=== PATIENT | female | born 1970 | race Two or more races ===

== ENCOUNTER → 2020-07-07 10:58 | Outpatient (BNVA) | payer OTHER, SELFPAY | PROVIDERS: PCP Physician Assistant; Referring Provider Physician Assistant; Visit Provider Dietitian, Registered | DX: Z76.89 Persons encountering health services in other specified circumstances (principal) ==

== ENCOUNTER → 2020-07-11 08:55 | Outpatient (BNVA) | payer OTHER, SELFPAY | PROVIDERS: PCP Physician Assistant; Visit Provider Internal Medicine Endocrinology, Diabetes & Metabolism | DX: Z76.89 Persons encountering health services in other specified circumstances (principal) ==

== ENCOUNTER → 2020-07-12 08:54 | Outpatient (BNVA) | payer OTHER, SELFPAY | PROVIDERS: PCP Physician Assistant; Visit Provider Internal Medicine Endocrinology, Diabetes & Metabolism | DX: Z76.89 Persons encountering health services in other specified circumstances (principal) ==

== ENCOUNTER 2020-07-13 07:10 | Outpatient (REF) | payer OTHER, SELFPAY ==
[2020-07-13 13:17] LABS: Thyroid Stimulating Hormone 98.18 uIU/mL (0.32-4.0)
[2020-07-19 06:12] LABS: Thyroglobulin Antibody <1 IU/mL (<=1); Thyroglobulin Level 1.6 ng/mL
== END 2020-07-13 07:11 | disposition home or self-care (01) ==
LOC: HO.LAB 07:10
PROVIDERS: PCP Physician Assistant; Visit Provider Internal Medicine Endocrinology, Diabetes & Metabolism
DX: C73 Malignant neoplasm of thyroid gland (principal)
CPT/HCPCS: 36415; 84432; 84443; 86800

== ENCOUNTER 2020-07-22 07:36 | Outpatient (REF) | payer OTHER, SELFPAY ==
[2020-07-22 09:23] LABS: Thyroid Stimulating Hormone 8.24 uIU/mL (0.32-4.0)
[2020-07-26 08:52] LABS: Thyroglobulin Antibody <1 IU/mL (<=1); Thyroglobulin Level 0.5 ng/mL
== END 2020-07-22 07:37 | disposition home or self-care (01) ==
LOC: HO.LAB 07:36
PROVIDERS: PCP Physician Assistant; Visit Provider Internal Medicine Endocrinology, Diabetes & Metabolism
DX: C73 Malignant neoplasm of thyroid gland (principal)
CPT/HCPCS: 36415; 84432; 84443; 86800

== ENCOUNTER → 2020-07-25 13:24 | Outpatient (BNVA) | payer OTHER, SELFPAY | PROVIDERS: PCP Physician Assistant; Visit Provider Internal Medicine Endocrinology, Diabetes & Metabolism | DX: C73 Malignant neoplasm of thyroid gland (principal); E89.0 Postprocedural hypothyroidism; E11.21 Type 2 diabetes mellitus with diabetic nephropathy; Z79.84 Long term (current) use of oral hypoglycemic drugs; E66.01 Morbid (severe) obesity due to excess calories; Z68.42 Body mass index [BMI] 45.0-49.9, adult; Z79.899 Other long term (current) drug therapy | CPT/HCPCS: 82947; 99212 ==

== ENCOUNTER → 2020-09-15 11:33 | Outpatient (BNVA) | payer OTHER, SELFPAY | PROVIDERS: PCP Physician Assistant; Referring Provider Physician Assistant; Visit Provider Dietitian, Registered | DX: Z76.89 Persons encountering health services in other specified circumstances (principal) ==

== ENCOUNTER 2020-10-24 10:22 | Outpatient (REF) | payer OTHER, SELFPAY ==
[2020-10-24 14:37] LABS: Microalbum/Creatinine Ratio Ur 4.9 ug/mg cr
[2020-10-24 15:03] LABS: Alanine Aminotransferase 33 U/L (0-31); Albumin Level 3.9 g/dL (3.5-5.0); Alkaline Phosphatase 85 U/L (39-117); Anion Gap 12 (12-20); Aspartate Amino Transferase 20 U/L (5-31); Bilirubin Total 0.4 mg/dL (0.0-1.0); Blood Urea Nitrogen 18 mg/dL (9-16); Calcium 9.2 mg/dL (8.4-10.2); Carbon Dioxide 28 mmol/L (22-29); Chloride 107 mmol/L (96-108); Cholesterol 163 mg/dL; Estimated Glomerular Filt Rate > 60; Glucose Fasting 126 mg/dL (60-99); HDL Cholesterol 59 mg/dL; LDL Cholesterol Calculated 84 mg/dl; Potassium 4.1 mmol/L (3.3-5.1); Sodium 143 mmol/L (135-145); Total Protein 7.5 g/dL (6.5-8.0); Triglycerides 103 mg/dL
[2020-10-24 15:09] LABS: Free T4 (Free Thyroxine) 1.36 ng/dL (0.71-1.85); Thyroid Stimulating Hormone 0.21 uIU/mL (0.32-4.0)
[2020-10-25 07:32] LABS: LDL Cholesterol Direct 84 mg/dL (<100)
[2020-10-27 05:52] LABS: Thyroglobulin Antibody <1 IU/mL (<=1); Thyroglobulin Level 0.2 ng/mL
[2020-10-27 15:59] LABS: Vitamin B12 325 pg/mL (200-900)
== END 2020-10-24 10:23 | disposition home or self-care (01) ==
LOC: HO.10HDL 10:22
PROVIDERS: Visit Provider Internal Medicine Endocrinology, Diabetes & Metabolism
DX: E11.9 Type 2 diabetes mellitus without complications (principal); C73 Malignant neoplasm of thyroid gland
CPT/HCPCS: 36415; 80053; 80061; 82043; 82607; 83721; 84432; 84439; 84443; 86800

== ENCOUNTER → 2020-10-28 13:19 | Outpatient (BNVA) | payer OTHER, SELFPAY | PROVIDERS: PCP Physician Assistant; Visit Provider Internal Medicine Endocrinology, Diabetes & Metabolism | DX: C73 Malignant neoplasm of thyroid gland (principal); E89.0 Postprocedural hypothyroidism; E11.21 Type 2 diabetes mellitus with diabetic nephropathy; E66.01 Morbid (severe) obesity due to excess calories; Z68.42 Body mass index [BMI] 45.0-49.9, adult | CPT/HCPCS: 82947; 99212 ==

== ENCOUNTER → 2020-12-15 11:43 | Outpatient (BNVA) | payer OTHER, SELFPAY | PROVIDERS: PCP Physician Assistant; Visit Provider Dietitian, Registered | DX: E66.01 Morbid (severe) obesity due to excess calories (principal); Z68.42 Body mass index [BMI] 45.0-49.9, adult | CPT/HCPCS: 97803 ==

== ENCOUNTER → 2021-01-23 09:12 | Outpatient (BNVA) | payer OTHER, SELFPAY | PROVIDERS: PCP Physician Assistant; Visit Provider Dietitian, Registered | DX: E66.01 Morbid (severe) obesity due to excess calories (principal); Z68.42 Body mass index [BMI] 45.0-49.9, adult | CPT/HCPCS: 97803 ==

== ENCOUNTER 2021-03-23 10:19 | Outpatient (REF) | payer OTHER, SELFPAY ==
[2021-03-23 12:49] LABS: Free T4 (Free Thyroxine) 1.54 ng/dL (0.71-1.85); Thyroid Stimulating Hormone 0.14 uIU/mL (0.32-4.0)
[2021-03-28 05:51] LABS: Thyroglobulin Antibody <1 IU/mL (<=1); Thyroglobulin Level 0.2 ng/mL
== END 2021-03-23 10:20 | disposition home or self-care (01) ==
LOC: HO.LAB 10:19
PROVIDERS: PCP Physician Assistant; Visit Provider Internal Medicine Endocrinology, Diabetes & Metabolism
DX: C73 Malignant neoplasm of thyroid gland (principal); E89.0 Postprocedural hypothyroidism; E11.21 Type 2 diabetes mellitus with diabetic nephropathy; E66.01 Morbid (severe) obesity due to excess calories; Z68.42 Body mass index [BMI] 45.0-49.9, adult; Z71.3 Dietary counseling and surveillance
CPT/HCPCS: 36415; 82947; 84432; 84439; 84443; 86800; 99212

== ENCOUNTER → 2021-04-24 09:31 | Outpatient (BNVA) | payer OTHER, SELFPAY | PROVIDERS: PCP Physician Assistant; Visit Provider Dietitian, Registered | DX: E66.01 Morbid (severe) obesity due to excess calories (principal); Z68.42 Body mass index [BMI] 45.0-49.9, adult | CPT/HCPCS: 97803 ==

== ENCOUNTER → 2021-10-24 09:59 | Outpatient (BNVA) | payer OTHER, SELFPAY | PROVIDERS: PCP Physician Assistant; Visit Provider Dietitian, Registered | DX: E66.01 Morbid (severe) obesity due to excess calories (principal); Z68.42 Body mass index [BMI] 45.0-49.9, adult | CPT/HCPCS: 97803 ==

== ENCOUNTER 2022-03-08 07:39 | Outpatient (REF) | payer OTHER, SELFPAY ==
[2022-03-08 09:16] LABS: Anion Gap 9 (12-20); Blood Urea Nitrogen 12 mg/dL (9-16); Calcium 9.2 mg/dL (8.4-10.2); Carbon Dioxide 29 mmol/L (22-29); Chloride 107 mmol/L (96-108); Cholesterol 142 mg/dL; Estimated Glomerular Filt Rate > 60; Glucose Random 128 mg/dL (60-115); HDL Cholesterol 55 mg/dL; LDL Cholesterol Calculated 63 mg/dl; Potassium 4.2 mmol/L (3.3-5.1); Sodium 141 mmol/L (135-145); Triglycerides 121 mg/dL
[2022-03-08 09:37] LABS: Microalbum/Creatinine Ratio Ur 10.3 ug/mg cr
[2022-03-08 09:40] LABS: Free T4 (Free Thyroxine) 1.21 ng/dL (0.71-1.85); Thyroid Stimulating Hormone 0.05 uIU/mL (0.32-4.0)
[2022-03-13 06:33] LABS: Thyroglobulin Antibody <1 IU/mL (<=1); Thyroglobulin Level 0.3 ng/mL
== END 2022-03-08 07:40 | disposition home or self-care (01) ==
LOC: HO.LAB 07:39
PROVIDERS: PCP Physician Assistant; Visit Provider Internal Medicine Endocrinology, Diabetes & Metabolism
DX: C73 Malignant neoplasm of thyroid gland (principal); E11.9 Type 2 diabetes mellitus without complications
CPT/HCPCS: 36415; 80048; 80061; 82043; 84432; 84439; 84443; 86800

== ENCOUNTER → 2022-04-24 08:56 | Outpatient (BNVA) | payer OTHER, SELFPAY | PROVIDERS: PCP Physician Assistant; Visit Provider Dietitian, Registered | DX: E11.9 Type 2 diabetes mellitus without complications (principal); E66.9 Obesity, unspecified; Z71.3 Dietary counseling and surveillance; Z79.4 Long term (current) use of insulin | CPT/HCPCS: 97803 ==

== ENCOUNTER 2022-05-03 08:33 | Outpatient (REF) | payer OTHER, SELFPAY ==
--- NOTE | ~2022-05-03 | US_ITS ---
EXAMINATION: US SOFT TISSUE HEAD/NECK CLINICAL INFORMATION: Nontoxic multinodular goiter. Thyroidectomy in 04/2020 per the patient. COMPARISON: Thyroid ultrasound 01/27/2020. TECHNIQUE: Linear transducer harrison-scale and color Doppler examination with attention to the region of the thyroid bed and surrounding tissue. FINDINGS: THYROIDECTOMY BED: No residual thyroid tissue is appreciated within the thyroidectomy bed. On the right side level 3 there is a 1.0 x 0.3 x 0.6 cm lymph node without definite fatty cleft, however no cortical thickening or lobulation is appreciated. On the left side level 3 there is a normal-appearing lymph node measuring 2.0 x 0.6 x 1.4 cm in size and has a normal fatty hilum/cleft and no evidence of cortical thickening. US/US thyroid IMPRESSION: No residual thyroid tissue/mass identified within the thyroidectomy bed. Bilateral level 3 lymph nodes without evidence of cortical thickening or lobulation.
== END 2022-05-03 08:34 | disposition home or self-care (01) ==
LOC: HO.US 08:33
PROVIDERS: Visit Provider Internal Medicine Endocrinology, Diabetes & Metabolism
DX: E04.2 Nontoxic multinodular goiter (principal)
CPT/HCPCS: 76536

== ENCOUNTER → 2022-06-28 07:47 | Outpatient (BNVA) | payer OTHER, SELFPAY | PROVIDERS: PCP Physician Assistant; Visit Provider Internal Medicine Endocrinology, Diabetes & Metabolism | DX: C73 Malignant neoplasm of thyroid gland (principal); E89.0 Postprocedural hypothyroidism | CPT/HCPCS: 99212 ==

== ENCOUNTER 2022-06-28 08:51 | Outpatient (REF) | payer OTHER, SELFPAY ==
[2022-06-28 11:34] LABS: Free T4 (Free Thyroxine) 1.33 ng/dL (0.71-1.85); Thyroid Stimulating Hormone 0.46 uIU/mL (0.32-4.0)
== END 2022-06-28 08:52 | disposition home or self-care (01) ==
LOC: HO.10HDL 08:51
PROVIDERS: Visit Provider Internal Medicine Endocrinology, Diabetes & Metabolism
DX: C73 Malignant neoplasm of thyroid gland (principal); E89.0 Postprocedural hypothyroidism
CPT/HCPCS: 36415; 84439; 84443

== ENCOUNTER 2022-11-01 13:45 | Outpatient (REF) | payer OTHER, SELFPAY ==
[2022-11-01 16:27] LABS: Free T4 (Free Thyroxine) 1.41 ng/dL (0.71-1.85); Thyroid Stimulating Hormone 1.71 uIU/mL (0.32-4.0)
[2022-11-02 18:09] LABS: Thyroglobulin 0.1 ng/mL
== END 2022-11-01 13:46 | disposition home or self-care (01) ==
LOC: HO.LAB 13:45
PROVIDERS: PCP Physician Assistant; Visit Provider Internal Medicine Endocrinology, Diabetes & Metabolism
DX: C73 Malignant neoplasm of thyroid gland (principal); E89.0 Postprocedural hypothyroidism; E11.9 Type 2 diabetes mellitus without complications; Z79.899 Other long term (current) drug therapy
CPT/HCPCS: 36415; 84432; 84439; 84443; 99212

== ENCOUNTER 2022-12-17 10:49 | Emergency (ER) | payer MEDICAID, SELFPAY ==
--- NOTE | ~2022-12-17 | US_ITS ---
EXAMINATION: US ABDOMEN LIMITED CLINICAL INFORMATION: Right upper quadrant pain radiating to back. COMPARISON: None available. TECHNIQUE: Real-time imaging of the right upper quadrant abdominal viscera. FINDINGS: PANCREAS: Not visualized LIVER: The liver is not well visualized. Liver echotexture appears normal. No focal liver lesion or biliary duct dilatation. GALLBLADDER: Surgically removed COMMON BILE DUCT: Normal in caliber measuring 0.3 cm in diameter. RIGHT KIDNEY: 5 mm stone in the lower pole.. No hydronephrosis. No focal parenchymal lesions. The kidney measures 12.7 cm in maximum dimension. FREE FLUID: None. US/US abdomen limited IMPRESSION: Limited exam. Right renal stone.
--- NOTE | ~2022-12-17 | CT_ITS ---
EXAMINATION: CT ABDOMEN AND PELVIS WITH CONTRAST CLINICAL INFORMATION: Epigastric pain COMPARISON: Ultrasound abdomen earlier today which demonstrated a 5 mm nonobstructing right renal calculus TECHNIQUE: Multidetector volumetric images were obtained from the superior aspect of the liver through the pubic symphysis following administration 85 mL of Omnipaque 350 intravenous contrast. Sagittal and coronal reformatted images were obtained on the technologist's workstation. Oral contrast: No This CT examination was performed using dose optimization techniques as appropriate, variously including the following: *Automated exposure control *Adjustment of mA and/or kV according to patient size (this includes techniques or standardized protocols for targeted exams where dose is matched to indication/reason for exam; i.e. extremities or head) *Use of iterative reconstruction technique DLP: 10:15 mGy-cm FINDINGS: LUNG BASES: The visualized lung bases are unremarkable. Coronary calcification is seen. LIVER, GALLBLADDER, AND BILIARY TREE: The liver is normal in size, shape, and attenuation. No focal hepatic lesion or biliary ductal dilatation is present. Status post cholecystectomy. PANCREAS: Unremarkable. SPLEEN: Unremarkable. ADRENAL GLANDS: Unremarkable. KIDNEYS AND URETERS: The kidneys are normal in size, shape, and attenuation. Again seen is a nonobstructing 5 x 7 mm right lower pole calculus. The stone measures 525 Hounsfield units and is 15 cm from the posterior axillary line. No additional calculi are seen. A 1.4 cm left Bosniak class I renal cyst is present which needs no additional imaging or follow-up. No solid renal masses are seen. No hydronephrosis, hydroureter, or calculi seen. No perinephric stranding. BLADDER: Empty and not adequately evaluated GASTROINTESTINAL TRACT: A posterior gastric diverticulum is seen. The small and large bowel are unremarkable. The appendix is unremarkable. ABDOMINAL WALL: No significant hernia is appreciated. LYMPH NODES: Some shotty retroperitoneal lymph nodes are seen but there is no adenopathy. VASCULAR: Unremarkable. PELVIC VISCERA: Surgically absent OSSEOUS STRUCTURES: Mild degenerative changes present throughout the spine without bony destructive lesions. CT/CT abdomen pelvis w IV con IMPRESSION: 1. A cause for the patient's epigastric pain has not been found. 2. Incidental note made of cholecystectomy, nonobstructing right renal calculus, gastric diverticulum and degenerative changes in the spine. Fleischner guidelines were followed.
[2022-12-17 11:03] VITALS: BP 130/91; PULSE 71; RESP 18; TEMP 36.8; O2SAT 96; BMI 44.4
--- NOTE | 2022-12-17 11:04 | ED.GENADULT ---
HPI - General Adult General Chief complaint: Abdominal Pain <MAG Villalba - Last Filed: 12/17/22 11:07> Stated complaint: R flank pain rad to back <MAG Villalba - Last Filed: 12/17/22 11:07> Time Seen by Provider: 12/17/22 15:56 <MAG Villalba - Last Filed: 12/17/22 11:07> Source: patient <Shilpa Webster MD - Last Filed: 12/17/22 18:57> Mode of arrival: ambulatory <Shilpa Webster MD - Last Filed: 12/17/22 18:57> Limitations: no limitations <Shilpa Webster MD - Last Filed: 12/17/22 18:57> History of Present Illness HPI narrative: Patient comes in the emergency room complaining of 3 days of epigastric pain. Patient states that she had a sudden sensation of something shifting violently from the epigastric area to the right upper quadrant. Patient states that she has been having constant nonradiating pain since then. Patient denies nausea vomiting diarrhea, no fever chills. Patient had a cholecystectomy approximately 5 days ago. Pain is unrelated to p.o. intake. <Shilpa Webster MD - Last Filed: 12/17/22 18:57> Related Data Home medications: Home Medications Medication Instructions Recorded Confirmed loratadine 10 mg capsule 10 mg PO DAILY 07/25/20 11/01/22 tamsulosin 0.4 mg capsule 0.4 mg PO DAILY 07/25/20 11/01/22 albuterol sulfate 90 mcg/actuation 2 puff inhalation Q4H PRN wheezing 06/28/22 11/01/22 aerosol inhaler (Proventil HFA) cetirizine 10 mg tablet 10 mg PO DAILY PRN allergies 06/28/22 11/01/22 famotidine 20 mg tablet 20 mg PO BID PRN 06/28/22 11/01/22 levothyroxine 125 mcg tablet 125 mcg PO DAILY 06/28/22 11/01/22 montelukast 10 mg tablet 10 mg PO BEDTIME 06/28/22 11/01/22 amoxicillin 875 mg tablet 875 mg PO BID 11/01/22 11/01/22 Previous Rx's Medication Instructions Recorded alcohol swabs (Alcohol Prep Pads) 1 pad topical .3 times a day 30 07/22/21 days #200 ea lancets 28 gauge (FreeStyle #100 ea 03/23/21 Lancets) semaglutide 1 mg/dose (2 mg/1.5 1 mg (0.75 mL) subcut QWEEK 30 03/23/21 mL) subcutaneous pen injector days #3.75 mL (Ozempic) FreeStyle Lite Strips (blood sugar 1 strip miscellaneous TID 30 days 01/05/22 diagnostic) #100 ea metformin 500 mg tablet 500 mg PO BID 30 days #60 tabs 01/05/22 cholecalciferol (vitamin D3) 50 50 mcg PO DAILY #30 caps 12/06/22 mcg (2,000 unit) capsule <MAG Villalba - Last Filed: 12/17/22 11:07> Allergies/adverse reactions: Allergies Allergy/AdvReac Type Severity Reaction Status Date / Time clarithromycin Allergy Unknown Unknown Verified 06/28/22 07:54 liraglutide Allergy Unknown redness Verified 06/28/22 07:54 and itching No Known Allergies Allergy Verified 06/28/22 07:54 [No Known Allergies*] <MAG Villalba - Last Filed: 12/17/22 11:07> Review of Systems Review of Systems: Constitutional : No Weight loss, No Fever, No Chills, No Night Sweats, No Fatigue, No Malaise ENT/Mouth : No Hearing loss, No Ear Pain, No Nasal Congestion, No Sinus Pain, No Hoarseness, No sore throat, No Rhinorrhea, No Swallowing Difficulty Eyes: No Eye Pain, No Swelling, No Redness, No Foreign Body, No Discharge, No Vision Changes Cardiovascular : No Chest Pain, No SOB, No Dyspnea on Exertion, No Orthopnea, No Edema, No Palpitations Respiratory : No Cough, No Sputum, No Wheezing, No Smoke Exposure, No Dyspnea Gastrointestinal : No Nausea, No Vomiting, No Diarrhea, No Constipation, complaining of epigastric pain radiating to the right upper quadrant, no melena Genitourinary : no irregular bleeding, No Dysuria, No Urinary Frequency, No Hematuria, No Urinary Incontinence, No Urgency, No Flank Pain, No Urinary Flow Changes, No Hesitancy Musculoskeletal : No joint pain, No Myalgias, No Joint Swelling Skin : No Skin Lesions, No rash Neuro : No Weakness, No Numbness, No Paresthesias, No Loss of Consciousness, No Dizziness, No Headache Psych : No Anxiety/Panic, No Depression, No SI/HI/AH/VH, No Social Issues, Heme/Lymph: No Bruising, No Bleeding,No Lymphadenopathy Endocrine : No Polyuria, No Polydipsia, No Temperature Intolerance <Shilpa Webster MD - Last Filed: 12/17/22 18:57> [facility] Past Medical History Medical History: Medical History Diabetes type 2, controlled Diabetic nephropathy associated with type 2 diabetes mellitus Post-surgical hypothyroidism Primary thyroid cancer <MAG Villalba - Last Filed: 12/17/22 11:07> Surgical History: Surgical History History of carpal tunnel release of both wrists History of total abdominal hysterectomy History of total thyroidectomy <MAG Villalba - Last Filed: 12/17/22 11:07> Family History Family History: Family History Father CVD (cardiovascular disease) Mother CVD (cardiovascular disease) <MAG Villalba - Last Filed: 12/17/22 11:07> Social History Social History: Social History (Updated 11/01/22 @ 13:51 by AARON Martinez) Household Members: None Alcohol intake: never Patient Tobacco Use Status: Never used Tobacco Advance Directives: No Advance Directives Information Provided: Yes <MAG Villalba - Last Filed: 12/17/22 11:07> Physical Exam ED Vital Signs: Vital Signs - 24 hr 12/17/22 11:03 12/17/22 14:21 12/17/22 16:26 Temperature 98.3 F 97.9 F 97.8 F Pulse Rate 71 59 55 Respiratory Rate 18 14 12 Blood Pressure 130/91 H 127/76 134/54 L Pulse Oximetry 96 99 98 Oxygen Delivery Method Room Air Room Air Room Air BMI result Body Mass Index 44.4 <MAG Villalba - Last Filed: 12/17/22 11:07> Vital Signs - 24 hr 12/17/22 11:03 12/17/22 14:21 12/17/22 16:26 Temperature 98.3 F 97.9 F 97.8 F Pulse Rate 71 59 55 Respiratory Rate 18 14 12 Blood Pressure 130/91 H 127/76 134/54 L Pulse Oximetry 96 99 98 Oxygen Delivery Method Room Air Room Air Room Air BMI result Body Mass Index 44.4 <Shilpa Webster MD - Last Filed: 12/17/22 18:57> Const Other: Appearance: Alert. Oriented X3. No acute distress. Eyes: Pupils equal, round and reactive to light. ENT: Pharynx normal. Neck: Normal inspection. Neck supple. No lymph nodes noted. No crepitus CVS: Normal heart rate and rhythm. Pulses normal. Normal S1 and S2 Respiratory: No respiratory distress. Breath sounds normal. No Wheezing. No rales Abdomen: Soft , mild pain to palpation epigastric area, no rigidity, no distension, no guarding or rebound. Skin: Skin warm and dry. Normal skin color. Normal skin turgor. Extremities: No lower extremity edema. No Lacerations. No Rash Neuro: Oriented X 3. No motor deficit. No sensory deficit. Moving all extremities. No slurred speech. CN 2 through 12 grossly intact Psych: calm, cooperative, normal affect <Shilpa Webster MD - Last Filed: 12/17/22 18:57> Course Course Course Narrative: RME - 51 yo female with history DM2, history of thyroid cancer who presents to the ER for evaluation of 4 days of RUQ pain that radiates to her back. It has been constant. It is not worse with food. She is s/p cholecystectomy 5+ years ago. No N/V/D or fevers. VSS in triage, nontoxic appearing. Plan: labs and start with RUQ U/S to r/o retained stone <MAG Villalba - Last Filed: 12/17/22 11:07> Medications Administered Discontinued Medications Generic Name Dose Route Start Last Admin Trade Name Freq PRN Reason Stop Dose Admin Iohexol 100 ml 12/17/22 16:52 12/17/22 16:52 Iohexol 350 Mg/Ml 100 Ml Infus..Btl IV 12/17/22 16:53 85 ml ONCE ONE Administration Ketorolac Tromethamine 30 mg 12/17/22 16:08 12/17/22 16:18 Ketorolac Tromethamine 30 Mg/Ml Vial IVPUSH 12/17/22 16:09 30 mg ONCE ONE Administration <MAG Villalba - Last Filed: 12/17/22 11:07> Medications Administered Discontinued Medications Generic Name Dose Route Start Last Admin Trade Name Miguelangel PRN Reason Stop Dose Admin Iohexol 100 ml 12/17/22 16:52 12/17/22 16:52 Iohexol 350 Mg/Ml 100 Ml Infus..Btl IV 12/17/22 16:53 85 ml ONCE ONE Administration Ketorolac Tromethamine 30 mg 12/17/22 16:08 12/17/22 16:18 Ketorolac Tromethamine 30 Mg/Ml Vial IVPUSH 12/17/22 16:09 30 mg ONCE ONE Administration <Shilpa Webster MD - Last Filed: 12/17/22 18:57> Medical Decision Making Medical Decision Making [facility] Narrative: -patient's white blood cell count is normal, LFTs normal, lipase is slightly elevated. -ultrasound is limited -we will go ahead and order an ultrasound. -patient got for discomfort 1 dose of Toradol -CT scan of the abdomen is unremarkable. Patient has a nonobstructing stone in the right kidney, unlikely causing the patient's symptoms. -patient has a mild UTI, 1st dose of Macrobid given in the ED, blood pressure normal, white blood cell count normal, sepsis not suspected. -patient's lipase is slightly elevated, CT scan is unremarkable, pancreas looks normal. <Shilpa Webster MD - Last Filed: 12/17/22 18:57> Differential Diagnosis Differential Diagnoses: The differential diagnosis associated with the presentation includes <Shilpa Webster MD - Last Filed: 12/17/22 18:57> Lab Data [facility] Lab Attestation statement: I reviewed the patient's lab results. <Shilpa Webster MD - Last Filed: 12/17/22 18:57> Result Diagrams: 12/17/22 11:16 12/17/22 11:16 <MAG Villalba - Last Filed: 12/17/22 11:07> Labs: Lab Results 12/17/22 12/17/22 12/17/22 Range/Units 11:16 11:16 14:29 WBC 8.7 (4.8-10.8) X10*3/uL RBC 4.44 (4.20-5.50) X10*6/uL Hgb 13.1 (12.0-16.0) g/dl Hct 40.2 (37.0-47.0) % MCV 90.5 (80.0-98.0) fL MCH 29.5 (27.0-33.0) pg MCHC 32.6 (31.0-35.0) g/dl RDW 13.0 (11.0-16.0) % Plt Count 279 (160-400) X10*3/uL MPV 9.8 (9.4-12.3) fL Immature Gran % (Auto) 0.3 (0.0-0.4) % Neut % (Auto) 46.2 (45-73) % Lymph % (Auto) 44.0 H (20-40) % [place] % (Auto) 5.2 (2-11) % Eos % (Auto) 4.0 (0-4) % Baso % (Auto) 0.3 (0-2) % Lymph # (Auto) 3.8 (1.2-4.9) X10*3/uL [place] # (Auto) 0.5 (0.1-1.2) X10*3/uL Eos # (Auto) 0.4 (0.0-0.4) X10*3/uL Baso # (Auto) 0.0 (0.0-0.2) X10*3/uL Abs Immat Gran (auto) 0.03 (0.00-0.03) X10*3/uL Absolute Neuts (auto) 4.0 (2.0-8.3) x10*3/uL Absolute Nucleated RBC 0.000 (0.0-0.012) X10*3/uL Nucleated RBC % (auto) 0.0 (0.0-0.2) /100WBC Sodium 142 (135-145) mmol/L Potassium 4.9 (3.3-5.1) mmol/L Chloride 107 (96-108) mmol/L Carbon Dioxide 29 (22-29) mmol/L Anion Gap 11 L (12-20) BUN 17 H (9-16) mg/dL Creatinine 0.78 (0.5-1.4) mg/dL Estim Creat Clear Calc 99.9 Estimated GFR > 60 Random Glucose 141 H (60-115) mg/dL Calcium 9.1 (8.4-10.2) mg/dL Magnesium 1.6 (1.6-2.6) mg/dL Total Bilirubin 0.3 (0.0-1.0) mg/dL Direct Bilirubin 0.1 (0.0-0.5) mg/dL AST 15 (5-31) U/L ALT 21 (0-31) U/L Alkaline Phosphatase 72 (39-117) U/L Total Protein 7.1 (6.5-8.0) g/dL Albumin 3.8 (3.5-5.0) g/dL Lipase 105 H (8-78) U/L Urine Color Yellow Urine Appearance Clear Urine pH 5.5 (5.0-9.0) Ur Specific [place] 1.020 (1.005-1.025) Urine Protein Negative (Neg-Trace) mg/dL Urine Glucose (UA) Negative (Negative) mg/dL Urine Ketones Negative (Negative) mg/dL Urine Blood Trace H (Negative) Urine Nitrite Negative (Negative) Ur Leukocyte Esterase Moderate (2+) H (Negative) Urine RBC 0-2 (0-2) /HPF Urine WBC 0-5 (0-5) /HPF Ur Squamous Epith Cells 0-2 (0-2) /HPF Urine Bacteria None Seen (None Seen) Hyaline Casts Not Reportable <MAG Villalba - Last Filed: 12/17/22 11:07> Lab Results 12/17/22 12/17/22 12/17/22 Range/Units 11:16 11:16 14:29 WBC 8.7 (4.8-10.8) X10*3/uL RBC 4.44 (4.20-5.50) X10*6/uL Hgb 13.1 (12.0-16.0) g/dl Hct 40.2 (37.0-47.0) % MCV 90.5 (80.0-98.0) fL MCH 29.5 (27.0-33.0) pg MCHC 32.6 (31.0-35.0) g/dl RDW 13.0 (11.0-16.0) % Plt Count 279 (160-400) X10*3/uL MPV 9.8 (9.4-12.3) fL Immature Gran % (Auto) 0.3 (0.0-0.4) % Neut % (Auto) 46.2 (45-73) % Lymph % (Auto) 44.0 H (20-40) % [place] % (Auto) 5.2 (2-11) % Eos % (Auto) 4.0 (0-4) % Baso % (Auto) 0.3 (0-2) % Lymph # (Auto) 3.8 (1.2-4.9) X10*3/uL [place] # (Auto) 0.5 (0.1-1.2) X10*3/uL Eos # (Auto) 0.4 (0.0-0.4) X10*3/uL Baso # (Auto) 0.0 (0.0-0.2) X10*3/uL Abs Immat Gran (auto) 0.03 (0.00-0.03) X10*3/uL Absolute Neuts (auto) 4.0 (2.0-8.3) x10*3/uL Absolute Nucleated RBC 0.000 (0.0-0.012) X10*3/uL Nucleated RBC % (auto) 0.0 (0.0-0.2) /100WBC Sodium 142 (135-145) mmol/L Potassium 4.9 (3.3-5.1) mmol/L Chloride 107 (96-108) mmol/L Carbon Dioxide 29 (22-29) mmol/L Anion Gap 11 L (12-20) BUN 17 H (9-16) mg/dL Creatinine 0.78 (0.5-1.4) mg/dL Estim Creat Clear Calc 99.9 Estimated GFR > 60 Random Glucose 141 H (60-115) mg/dL Calcium 9.1 (8.4-10.2) mg/dL Magnesium 1.6 (1.6-2.6) mg/dL Total Bilirubin 0.3 (0.0-1.0) mg/dL Direct Bilirubin 0.1 (0.0-0.5) mg/dL AST 15 (5-31) U/L ALT 21 (0-31) U/L Alkaline Phosphatase 72 (39-117) U/L Total Protein 7.1 (6.5-8.0) g/dL Albumin 3.8 (3.5-5.0) g/dL Lipase 105 H (8-78) U/L Urine Color Yellow Urine Appearance Clear Urine pH 5.5 (5.0-9.0) Ur Specific [place] 1.020 (1.005-1.025) Urine Protein Negative (Neg-Trace) mg/dL Urine Glucose (UA) Negative (Negative) mg/dL Urine Ketones Negative (Negative) mg/dL Urine Blood Trace H (Negative) Urine Nitrite Negative (Negative) Ur Leukocyte Esterase Moderate (2+) H (Negative) Urine RBC 0-2 (0-2) /HPF Urine WBC 0-5 (0-5) /HPF Ur Squamous Epith Cells 0-2 (0-2) /HPF Urine Bacteria None Seen (None Seen) Hyaline Casts Not Reportable <Shilpa Webster MD - Last Filed: 12/17/22 18:57> Independent Interpretation I performed an independent interpretation of an: CT Scan (No obstructions, gallbladder surgically absent) <Shilpa Webster MD - Last Filed: 12/17/22 18:57> Radiology Impression Discussion of test interpretation with radiology: I have reviewed the radiologist's reading. <Shilpa Webster MD - Last Filed: 12/17/22 18:57> Radiologist Impression: FINDINGS: LUNG BASES: The visualized lung bases are unremarkable. Coronary calcification is seen. LIVER, GALLBLADDER, AND BILIARY TREE: The liver is normal in size, shape, and attenuation. No focal hepatic lesion or biliary ductal dilatation is present. Status post cholecystectomy.? PANCREAS: Unremarkable.? SPLEEN: Unremarkable.? ADRENAL GLANDS: Unremarkable.? KIDNEYS AND URETERS: The kidneys are normal in size, shape, and attenuation. Again seen is a nonobstructing 5 x 7 mm right lower pole calculus. The stone measures 525 Hounsfield units and is 15 cm from the posterior axillary line. No additional calculi are seen. A 1.4 cm left Bosniak class I renal cyst is present which needs no additional imaging or follow-up. No solid renal masses are seen. No hydronephrosis, hydroureter, or calculi seen. No perinephric stranding. ? BLADDER: Empty and not adequately evaluated? GASTROINTESTINAL TRACT: A posterior gastric diverticulum is seen. The small and large bowel are unremarkable. The appendix is unremarkable.? ABDOMINAL WALL: No significant hernia is appreciated.? LYMPH NODES: Some shotty retroperitoneal lymph nodes are seen but there is no adenopathy. VASCULAR: Unremarkable. PELVIC VISCERA: Surgically absent? OSSEOUS STRUCTURES: Mild degenerative changes present throughout the spine without bony destructive lesions.? CT/CT abdomen pelvis w IV con IMPRESSION: 1.? A cause for the patient's epigastric pain has not been found. 2.? Incidental note made of cholecystectomy, nonobstructing right renal calculus, gastric diverticulum and degenerative changes in the spine. <Shilpa Webster MD - Last Filed: 12/17/22 18:57> Discharge Plan Discharge Clinical Impression: Abdominal pain <MAG Villalba - Last Filed: 12/17/22 11:07> Patient Disposition: Home, Self-Care <MAG Villalba - Last Filed: 12/17/22 11:07> Instructions: Abdominal Pain (ED), Full Liquid Diet (DC) <MAG Villalba - Last Filed: 12/17/22 11:07> Additional Instructions: Please follow-up with your primary care physician tomorrow. If you have any worsening or new symptoms, please return to the emergency room or call 911 <MAG Villalba - Last Filed: 12/17/22 11:07> Prescriptions: No Action FreeStyle Lite Strips Strip 1 strip miscellaneous TID 30 Days Qty: 100 11RF metformin 500 mg tablet 500 mg PO BID 30 Days Qty: 60 6RF cholecalciferol (vitamin D3) 50 mcg (2,000 unit) capsule 50 mcg PO DAILY Qty: 30 2RF loratadine 10 mg capsule 10 mg PO DAILY tamsulosin 0.4 mg capsule 0.4 mg PO DAILY alcohol swabs [Alcohol Prep Pads] Pads, Medicated 1 pad topical .3 times a day 30 Days Qty: 200 6RF (DME) lancets [FreeStyle Lancets] 28 gauge misc See Rx Instructions .ROUTE .MEDSUPPLY Qty: 100 5RF Rx Instructions: 3 times a day Ozempic 1 mg/dose (2 mg/1.5 mL) pen injector 1 mg subcut QWEEK 30 Days Qty: 3.75 7RF Rx Instructions: Dose increased to 1 mg levothyroxine 125 mcg tablet 125 mcg PO DAILY albuterol sulfate [Proventil HFA] 90 mcg/actuation HFA aerosol inhaler 2 puff inhalation Q4H PRN (Reason: wheezing) montelukast 10 mg tablet 10 mg PO BEDTIME famotidine 20 mg tablet 20 mg PO BID PRN cetirizine 10 mg tablet 10 mg PO DAILY PRN (Reason: allergies) amoxicillin 875 mg tablet 875 mg PO BID <MAG Villalba - Last Filed: 12/17/22 11:07>
[2022-12-17 11:24] LABS: MANUAL DIFF FLAG NO
[2022-12-17 11:27] LABS: Basophils Percent Auto 0.3 % (0-2); Eosinophils Absolute Auto 0.4 X10*3/uL (0.0-0.4); Hematocrit 40.2 % (37.0-47.0); Hemoglobin 13.1 g/dl (12.0-16.0); Imm Gran Abs Auto 0.03 X10*3/uL (0.00-0.03); Imm Gran Pct Auto 0.3 % (0.0-0.4); Lymphocytes Absolute Auto 3.8 X10*3/uL (1.2-4.9); Mean Corpuscular HGB Conc 32.6 g/dl (31.0-35.0); Mean Corpuscular Hemoglobin 29.5 pg (27.0-33.0); Mean Corpuscular Volume 90.5 fL (80.0-98.0); Mean Platelet Volume 9.8 fL (9.4-12.3); Monocytes Absolute Auto 0.5 X10*3/uL (0.1-1.2); Monocytes Percent Auto 5.2 % (2-11); Neutrophils Percent Auto 46.2 % (45-73); Platelet Count 279 X10*3/uL (160-400); Red Blood Count 4.44 X10*6/uL (4.20-5.50); White Blood Count 8.7 X10*3/uL (4.8-10.8)
[2022-12-17 11:43] LABS: Alanine Aminotransferase 21 U/L (0-31); Albumin Level 3.8 g/dL (3.5-5.0); Alkaline Phosphatase 72 U/L (39-117); Anion Gap 11 (12-20); Aspartate Amino Transferase 15 U/L (5-31); Bilirubin Direct 0.1 mg/dL (0.0-0.5); Bilirubin Total 0.3 mg/dL (0.0-1.0); Blood Urea Nitrogen 17 mg/dL (9-16); Calcium 9.1 mg/dL (8.4-10.2); Carbon Dioxide 29 mmol/L (22-29); Chloride 107 mmol/L (96-108); Creatinine Clr Calc Pharmacy 99.9; Estimated Glomerular Filt Rate > 60; Glucose Random 141 mg/dL (60-115); Lipase 105 U/L (8-78); Magnesium 1.6 mg/dL (1.6-2.6); Potassium 4.9 mmol/L (3.3-5.1); Sodium 142 mmol/L (135-145); Total Protein 7.1 g/dL (6.5-8.0)
[2022-12-17 14:21] VITALS: BP 127/76; PULSE 59; RESP 14; TEMP 36.6; O2SAT 99
[2022-12-17 14:38] LABS: Appearance Urine Clear; Color Urine Yellow; Glucose Urine UA Negative (Negative); Leukocyte Esterase Urine Moderate (2+) (Negative); Nitrite Urine Negative (Negative); PH 5.5 (5.0-9.0); UMIC TRIGGER UACC YES; Urine Blood Trace (Negative); Urine Ketones Negative (Negative); Urine Protein Negative (Neg-Trace)
[2022-12-17 15:38] LABS: Bacteria Urine None Seen (None Seen); RBC Urine 0-2 /HPF (0-2); Squamous Epithelial Cell Urine 0-2 /HPF (0-2); WBC Urine 0-5 /HPF (0-5)
--- NOTE | 2022-12-17 15:59 | ECG_ITS ---
Test Reason : EPIGASTRIC PAIN Blood Pressure : / mmHG Vent. Rate : 056 BPM Atrial Rate : 056 BPM P-R Int : 208 ms QRS Dur : 148 ms QT Int : 486 ms P-R-T Axes : 006 -14 106 degrees QTc Int : 468 ms Sinus bradycardia Right bundle branch block Abnormal ECG When compared with ECG of 04-JUL-2013 07:35, No significant change was found Referred By: Shilpa Webster Electronically Signed By:AMINA GARAY
[2022-12-17] MEDS: Ketorolac Tromethamine 30 MG/ML VIAL IVPUSH (16:18)
[2022-12-17 16:26] VITALS: BP 134/54; PULSE 55; RESP 12; TEMP 36.6; O2SAT 98
[2022-12-17] MEDS: iohexoL 350 MG/ML 100 ML INFUS..BTL IV (16:52)
--- NOTE | 2022-12-17 17:00 | PC.NURSE ---
Patient has abdominal pain, patient states that it wraps around and goes up under her breasts. Patient is sinus rhythm on the monitor, lung sounds clear. Patient is able to move independently.
[2022-12-17 18:49] VITALS: BP 134/31; PULSE 59; RESP 13; TEMP 30.9; O2SAT 99
[2022-12-17] MEDS: Nitrofurantoin Monohyd/M-Cryst 100 MG CAPSULE PO (19:09)
== END 2022-12-17 19:19 | disposition home or self-care (01) ==
PROVIDERS: Physician Assistant; Emergency Provider Emergency Medicine; PCP Physician Assistant
DX: R10.9 Unspecified abdominal pain (principal); E11.9 Type 2 diabetes mellitus without complications; Z90.49 Acquired absence of other specified parts of digestive tract; Z79.84 Long term (current) use of oral hypoglycemic drugs; Z79.899 Other long term (current) drug therapy; Z85.850 Personal history of malignant neoplasm of thyroid
CPT/HCPCS: 36415; 74177; 76705; 80048; 80076; 81001; 83690; 83735; 85025; 93005; 96374; 99284; 99285; J1885; Q9967

== ENCOUNTER 2023-08-14 09:49 | Outpatient (AMB) | payer MEDICAID, SELFPAY ==
[2023-08-14 09:58] VITALS: BP 138/92; PULSE 70; BMI 48.5
--- NOTE | 2023-08-14 09:58 | A.OFFVIS_ITS ---
Intake Vital Signs 08/14/23 09:58 Height 5 ft 2 in Weight 264 lb 15.93 oz BMI 48.5 BP 138/92 H Blood Pressure Location Lt brachial Position Sitting Pulse 70 Pulse Source Pulse Oximeter Intake Visit Reasons: f/u thyroid cancer-CONFIRMED Intake Note: Patient present today for Thyroid cancer follow up visit. Community Theater Actor Required: Yes Community Theater Actor Language: Immigration Case Manager Name: Lindsay medical staff Information Interpreted: non-clinical & clinical Accompanied by: Self / Same As Patient Allergies clarithromycin Allergy (Unknown, Verified 08/14/23 10:03) Unknown liraglutide Allergy (Unknown, Verified 08/14/23 10:03) redness and itching No Known Allergies [No Known Allergies*] Allergy (Verified 08/14/23 10:03) Medication List - Last Reconciled 08/14/23 by Shane Landers MD albuterol sulfate 90 mcg/actuation (Proventil HFA) 2 puffs inhalation Q4H PRN alcohol swabs (Alcohol Prep Pads) 1 pad topical .3 times a day 30 days amoxicillin 875 mg PO BID cetirizine 10 mg PO DAILY PRN cholecalciferol (vitamin D3) 50 mcg PO DAILY famotidine 20 mg PO BID PRN FreeStyle Lite Strips (blood sugar diagnostic) 1 strip miscellaneous TID 30 days NS lancets (FreeStyle Lancets) 3 times a day levothyroxine 125 mcg PO DAILY loratadine 10 mg PO DAILY metformin 500 mg PO BID 30 days montelukast 10 mg PO BEDTIME semaglutide (Ozempic) 1 mg (0.75 mL) subcut QWEEK 30 days tamsulosin 0.4 mg PO DAILY timolol maleate 0.5% 1 drp ophthalmic (eye) QAM HPI HPI Comments History of Present Illness Details 52 year female today for follow-up visit, Today for follow-up for thyroid cancer, postsurgical hypothyroidism She was treated with radioactive iodine for remnant ablation on 07/13/2020. Post ablation scan was on 07/22/2020 the results are not available. Patient had total thyroidectomy on 04/13/[address] Morejon. Histology was consistent with classic variant papillary thyroid cancer, left lobe, size 1.0 x 0.9 x 0.6 cm. No evidence of extrathyroidal extension. No angioinvasion. No lymphatic invasion. Two more extent within 0.1 mm of the anterior margin. Patient had 4 positive lymph nodes from 8 examined. Largest metastatic deposits 0.3 cm, extranodal extension present. PTC a stage (PT1a, N1a, MX) . She had Thyrogen stimulated remnant ablation with 50 mCi of iodine 131 on 07/13/2020, post ablation scan Showed residual radioiodine activity within the neck consistent with function in thyroid tissue or local disease. No evidence of avid iodine distant metastatic lesions She had fine-needle biopsy on 02/04/2020 of left thyroid nodule, cytology was consistent with PTC [place] category . Has past medical history of type 2 diabetes, hypothyroidism and thyroid nodules. She is currently on levothyroxine 137 mcg daily. Dose increased after surgery. She is 100% adherent she has a good method of administration. She denies cold or heat intolerance, weigth loss or gain, diarrhea, positive constipation, imsomnia, fatigue, dry skin, dysphagia, dyspnea, dysphonia, tremors, palpitations, irritability, anxiety. She denies nocturia, polyuria polydipsia. Family History: She denies family history of thyroid cancer. Recent neck US showed [address] [address] Ultrasound Report Signed Patient: Howard AguilarElke varma Attending Dr: Shane Landers MD Ordering Physician: Shane Landers MD Date of Service: 05/03/22 Procedure(s): US thyroid Accession Number(s): [id number] cc: Shane Landers MD~ EXAMINATION: 05/13/22 US SOFT TISSUE HEAD/NECK CLINICAL INFORMATION: Nontoxic multinodular goiter. Thyroidectomy in 04/2020 per the patient. COMPARISON: Thyroid ultrasound 01/27/2020. TECHNIQUE: Linear transducer harrison-scale and color Doppler examination with attention to the region of the thyroid bed and surrounding tissue. FINDINGS: THYROIDECTOMY BED: No residual thyroid tissue is appreciated within the thyroidectomy bed. On the right side level 3 there is a 1.0 x 0.3 x 0.6 cm lymph node without definite fatty cleft, however no cortical thickening or lobulation is appreciated. On the left side level 3 there is a normal-appearing lymph node measuring 2.0 x 0.6 x 1.4 cm in size and has a normal fatty hilum/cleft and no evidence of cortical thickening. US/US thyroid IMPRESSION: No residual thyroid tissue/mass identified within the thyroidectomy bed. ? Bilateral level 3 lymph nodes without evidence of cortical thickening or lobulation. Laboratory Tests 01/30/20 04/21/20 07/13/20 08:20 12:30 07:15 Sodium Potassium BUN Creatinine Estimated GFR Glucose (Clinic) Fasting Glucose Hgb A1c (Clinic) Calcium AST ALT Alkaline Phosphata se Albumin Triglycerides Cholesterol LDL Cholesterol Di rect LDL Cholesterol, C alc HDL Cholesterol Vitamin B12 TSH Free T4 Thyroglobulin 3.4 H 1.6 H Urine Creatinine Urine Microalbumin Microalb/Creat Rat io Thyroglobulin Anti body <1 <1 <1 07/22/20 07/25/20 07/25/20 07:51 13:45 14:03 Sodium Potassium BUN Creatinine Estimated GFR Glucose (Clinic) 146 H Fasting Glucose Hgb A1c (Clinic) 6.9 H Calcium AST ALT Alkaline Phosphata se Albumin Triglycerides Cholesterol LDL Cholesterol Di rect LDL Cholesterol, C alc HDL Cholesterol Vitamin B12 TSH Free T4 Thyroglobulin 0.5 H Urine Creatinine Urine Microalbumin Microalb/Creat Rat io Thyroglobulin Anti body <1 10/24/20 10/24/20 10/24/20 10:35 10:35 10:35 Sodium 143 Potassium 4.1 BUN 18 H Creatinine 0.76 Estimated GFR > 60 Glucose (Clinic) Fasting Glucose 126 H Hgb A1c (Clinic) Calcium 9.2 AST 20 ALT 33 H Alkaline Phosphata se 85 Albumin 3.9 Triglycerides 103 Cholesterol 163 LDL Cholesterol Di rect 84 LDL Cholesterol, C alc 84 HDL Cholesterol 59 Vitamin B12 325 TSH 0.21 L Free T4 1.36 Thyroglobulin Urine Creatinine Urine Microalbumin Microalb/Creat Rat io Thyroglobulin Anti body 10/24/20 10/24/20 10:35 10:35 Sodium Potassium BUN Creatinine Estimated GFR Glucose (Clinic) Fasting Glucose Hgb A1c (Clinic) Calcium AST ALT Alkaline Phosphata se Albumin Triglycerides Cholesterol LDL Cholesterol Di rect LDL Cholesterol, C alc HDL Cholesterol Vitamin B12 TSH Free T4 Thyroglobulin 0.2 H Urine Creatinine 223.80 Urine Microalbumin 11.0 Microalb/Creat Rat io 4.9 Thyroglobulin Anti body <1 \To see Dr. Guajardo on 11/16/22 and pt states neck US did not show cancer [facility] Medical History Diabetes type 2, controlled Diabetic nephropathy associated with type 2 diabetes mellitus Post-surgical hypothyroidism Primary thyroid cancer Surgical History History of total thyroidectomy History of total abdominal hysterectomy History of carpal tunnel release of both wrists Family History Father CVD (cardiovascular disease) Mother CVD (cardiovascular disease) Social History Household Members: None Alcohol intake: never Patient Tobacco Use Status: Never used Tobacco Physical Exam Vital Signs: Last Vital Signs Pulse 70 08/14/23 09:58 BP 138/92 H 08/14/23 09:58 BMI result Body Mass Index 48.5 Const Other: healed scar status post thyroidectomy. There is no cervical adenopathy palpated. Reflexes 2+ DTR Assessment & Plan Assessment & Plan (1) Primary thyroid cancer: Code(s): C73 - Malignant neoplasm of thyroid gland Plan: This is a 51-year-old female with a history of papillary thyroid cancer status post total thyroidectomy with radioactive iodine therapy. She is currently on Synthroid 125 mcg with over suppression. Recent thyroid ultrasound showed right side level 3 there is a 1.0 x 0.3 x 0.6 cm lymph node without definite fatty cleft, however no cortical thickening or lobulation is appreciated.. A thyroglobulin level remains detectable but stable. Plan is obtain the note from the consult with Dr. Guajardo at [facility]. Will also recheck TSH, free T4 and thyroid and adjust levothyroxine (2) Post-surgical hypothyroidism: Code(s): E89.0 - Postprocedural hypothyroidism Plan: See plan for thyroid cancer Orders: Orders Free T4 (Free Thyroxine) Today C73 - Malignant neoplasm of thyroid gland, E89.0 - Postprocedural hypothyroidism Thyroid Stimulating Hormone Today C73 - Malignant neoplasm of thyroid gland, E89.0 - Postprocedural hypothyroidism Thyroglobulin Tumor Marker Today C73 - Malignant neoplasm of thyroid gland, E89.0 - Postprocedural hypothyroidism Coding Level of Care Code Est Pt Level 3 (80460) Diagnoses Primary thyroid cancer C73 Post-surgical hypothyroidism E89.0
== END 2023-08-14 10:41 | disposition home or self-care (01) ==
PROVIDERS: PCP Physician Assistant; Visit Provider Internal Medicine Endocrinology, Diabetes & Metabolism
DX: C73 Malignant neoplasm of thyroid gland (principal); E89.0 Postprocedural hypothyroidism
CPT/HCPCS: 99213

== ENCOUNTER → 2023-08-14 09:49 | Outpatient (BNVA) | payer MEDICAID, SELFPAY | PROVIDERS: Visit Provider Internal Medicine Endocrinology, Diabetes & Metabolism | DX: C73 Malignant neoplasm of thyroid gland (principal); E89.0 Postprocedural hypothyroidism | CPT/HCPCS: 99212 ==

== ENCOUNTER 2023-08-14 10:49 | Outpatient (REF) | payer MEDICAID, SELFPAY ==
[2023-08-14 14:06] LABS: Free T4 (Free Thyroxine) 1.17 ng/dL (0.71-1.85); Thyroid Stimulating Hormone 3.59 uIU/mL (0.32-4.0)
[2023-08-17 06:04] LABS: Thyroglobulin Antibody <1 IU/mL (<=1); Thyroglobulin Level 0.2 ng/mL
== END 2023-08-14 10:50 | disposition home or self-care (01) ==
LOC: HO.10HDL 10:49
PROVIDERS: Visit Provider Internal Medicine Endocrinology, Diabetes & Metabolism
DX: C73 Malignant neoplasm of thyroid gland (principal); E89.0 Postprocedural hypothyroidism
CPT/HCPCS: 36415; 84432; 84439; 84443; 86800; 99212

== ENCOUNTER 2023-08-22 10:50 | Outpatient (AMB) | payer MEDICAID, SELFPAY ==
[2023-08-22 10:56] VITALS: BMI 48.7
--- NOTE | 2023-08-22 10:56 | A.OFFVIS_ITS ---
Intake VS Expanded 08/22/23 10:56 09/02/23 17:27 Height 5 ft 2 in 5 ft 2 in Weight 266 lb 5.094 oz 266 lb BMI 48.7 48.6 Intake Visit Reasons: T2DM, obesity/CONFIRMED Allergies clarithromycin Allergy (Unknown, Verified 08/14/23 10:03) Unknown liraglutide Allergy (Unknown, Verified 08/14/23 10:03) redness and itching No Known Allergies [No Known Allergies*] Allergy (Verified 08/14/23 10:03) HPI Nutrition Presentation Details Pt presents for MNT for T2DM, obesity. Pt was last seen for nutrition in 04/2022. Food frequency Fish/omega 3 sources (nuts /seeds): 0/wk fruits:0-1/d dairy: reports choosing milk alternatives vegetables: 2-4 /wk starches: > 20serving/d beverages: juices/, tea, water, milk alternatives: 64 oz/d pastries and the like: 2+ daily physical activity: sedentary ETOH/SMoking: never RQA-Ekhuxew-Nh.Jeor Equation Height 5 ft 2 in Weight 266 lb Resting Metabolic Rate 1772.76 Calculated Activity Level Sedentary Calories Needed to Maintain Weight 2127.31 Diagnosis Nutrition problem #1 excessive energy intake As related to (etiology) #1 diagnosis As evidenced by (sign/symptom) #1 prior fail - chg behavior Monitoring/Goals Nutrition problem monitoring total PRO intake, glucose, fasting, total CHO intake, weight and oral fluids Outcome progress verbalized understanding Learning/Education Readiness to learn fair Most Recent Diabetes Results: Creatinine 0.78 mg/dL (0.5-1.4) 12/17/22 Blood Urea Nitrogen 17 mg/dL (9-16) H 12/17/22 Sodium 142 mmol/L (135-145) 12/17/22 Potassium 4.9 mmol/L (3.3-5.1) 12/17/22 Chloride 107 mmol/L (96-108) 12/17/22 Carbon Dioxide 29 mmol/L (22-29) 12/17/22 Calcium 9.1 mg/dL (8.4-10.2) 12/17/22 AST 15 U/L (5-31) 12/17/22 ALT 21 U/L (0-31) 12/17/22 Total Protein 7.1 g/dL (6.5-8.0) 12/17/22 Albumin 3.8 g/dL (3.5-5.0) 12/17/22 [facility] Medical History Diabetes type 2, controlled Diabetic nephropathy associated with type 2 diabetes mellitus Post-surgical hypothyroidism Primary thyroid cancer Surgical History History of total thyroidectomy History of total abdominal hysterectomy History of carpal tunnel release of both wrists Family History Father CVD (cardiovascular disease) Mother CVD (cardiovascular disease) Social History Household Members: None Alcohol intake: never Patient Tobacco Use Status: Never used Tobacco Assessment & Plan Assessment & Plan (1) Diabetes type 2, controlled: Code(s): E11.9 - Type 2 diabetes mellitus without complications Qualifiers: Diabetes mellitus complication detail: with microalbuminuria Diabetes mellitus intermodal customer service insulin use: without intermodal customer service use Plan: Wt:121 Kg ( 08/2023 ) Est kcal needs as per MSJ: 2100 (40% carb, 30% protein/fat) Est fluid needs as per 30 ml/d: 3600 Est prot per day as per 1 g/kg bw: 121 Recommend fiber intake : 8-10 g per day and gradually increase to 25-28 g per day for women and 35-38 g for men or as tolerated Recommend sodium intake per day : less than 2000 mg Educated patient on: ( R = reviewed V = verbalizes understanding N/R = needs review N/A = not applicable * Food sources of carbohydrate, adequate serving sizes and its role in various health conditions: R V * Differences between complex carbohydrates a simple carbohydrates, role of fiber in diet: R V * Lean protein sources of foods: NR * Differences between types of fats and role in diet (mono on saturated fat fatty acids, saturated fatty acids, trans fats): N/R * Food sources of sodium in salt and healthy modifications for heart health in kidney health: NR * Vitamins and minerals: R * Healthy plate method concept: R V * Physical activity: Benefits a precaution: R V * Dietary prevention of Hyperglycemia: V Patient Instructions: Work on having 3 scheduled meals per day in a consistent manner Have a meal replacement once a day Have a fruit in place of pastries and the like , 2 a day wt loss goal 5 lbs less by next follow up Coding Level of Care Code Nutr Indiv Subseq (65507) Diagnoses Diabetes type 2, controlled E11.9 Diabetes mellitus complication detail: with microalbuminuria Diabetes mellitus intermediate insulin use: without intermediate use Time Spent (min) 30
[2023-09-02 17:27] VITALS: BMI 48.6
== END 2023-08-22 11:45 | disposition home or self-care (01) ==
PROVIDERS: PCP Physician Assistant; Visit Provider Dietitian, Registered
DX: E11.9 Type 2 diabetes mellitus without complications (principal)

== ENCOUNTER → 2023-08-22 10:50 | Outpatient (BNVA) | payer MEDICAID, SELFPAY | PROVIDERS: PCP Physician Assistant; Visit Provider Dietitian, Registered | DX: E11.9 Type 2 diabetes mellitus without complications (principal); R80.9 Proteinuria, unspecified | CPT/HCPCS: 97803 ==

== ENCOUNTER 2023-10-03 11:20 | Outpatient (AMB) | payer MEDICAID, SELFPAY ==
[2023-10-03 11:56] VITALS: BMI 46.9
--- NOTE | 2023-10-03 11:56 | MHC.AMNUTRGE ---
Intake VS Expanded 10/03/23 11:56 Height 5 ft 2 in Weight 256 lb 9.889 oz BMI 46.9 Intake Visit Reasons: T2DM//LVM Allergies clarithromycin Allergy (Unknown, Verified 08/14/23 10:03) Unknown liraglutide Allergy (Unknown, Verified 08/14/23 10:03) redness and itching No Known Allergies [No Known Allergies*] Allergy (Verified 08/14/23 10:03) HPI Nutrition Presentation Details Pt presents for MNT f/u for T2DM. Pt also working on weight loss and reports following meal plan Pt reports doing meal prep and sister is very supportive of diet modificaitons typical meal intake B: oatmeal with berries , almonds 4oz coffee and 4 of tea and water snack : orange and nuts and water L: chicken and mixed vegetables , water D: beef and mixed vegetables snack: milk and fruit (smoothie) Pt reports not adding sugars to foods exercise: sedentary ETOH/Smoking: denies Most Recent Diabetes Results: Creatinine 0.78 mg/dL (0.5-1.4) 12/17/22 Blood Urea Nitrogen 17 mg/dL (9-16) H 12/17/22 Sodium 142 mmol/L (135-145) 12/17/22 Potassium 4.9 mmol/L (3.3-5.1) 12/17/22 Chloride 107 mmol/L (96-108) 12/17/22 Carbon Dioxide 29 mmol/L (22-29) 12/17/22 Calcium 9.1 mg/dL (8.4-10.2) 12/17/22 AST 15 U/L (5-31) 12/17/22 ALT 21 U/L (0-31) 12/17/22 Total Protein 7.1 g/dL (6.5-8.0) 12/17/22 Albumin 3.8 g/dL (3.5-5.0) 12/17/22 [facility] Medical History Diabetes type 2, controlled Diabetic nephropathy associated with type 2 diabetes mellitus Post-surgical hypothyroidism Primary thyroid cancer Surgical History History of total thyroidectomy History of total abdominal hysterectomy History of carpal tunnel release of both wrists Family History Father CVD (cardiovascular disease) Mother CVD (cardiovascular disease) Social History Household Members: None Alcohol intake: never Patient Tobacco Use Status: Never used Tobacco Assessment & Plan Assessment & Plan (1) Diabetes type 2, controlled: Code(s): E11.9 - Type 2 diabetes mellitus without complications Qualifiers: Diabetes mellitus complication detail: with microalbuminuria Diabetes mellitus pest control technician insulin use: without pest control technician use Plan: Wt:121 Kg ( 08/2023 ), 117 kg (10/2023) Est kcal needs as per MSJ: 2100 (40% carb, 30% protein/fat) Est fluid needs as per 30 ml/d: 3600 Est prot per day as per 1 g/kg bw: 121 Recommend fiber intake : 8-10 g per day and gradually increase to 25-28 g per day for women and 35-38 g for men or as tolerated Recommend sodium intake per day : less than 2000 mg Educated patient on: ( R = reviewed V = verbalizes understanding N/R = needs review N/A = not applicable Food sources of carbohydrate, adequate serving sizes and its role in various health conditions: R V Differences between complex carbohydrates a simple carbohydrates, role of fiber in diet: R V Lean protein sources of foods: NR Differences between types of fats and role in diet (mono on saturated fat fatty acids, saturated fatty acids, trans fats): N/R Food sources of sodium in salt and healthy modifications for heart health in kidney health: NR Vitamins and minerals: R Healthy plate method concept: R V Physical activity: Benefits a precaution: R V Dietary prevention of Hyperglycemia: V Patient Instructions: Continue working on reducing on fat in the diet- choosing lean protein foods, less fried foods, less butter, less cheese, creamy types of foods/sauces Continue working on meal prep maintain hydrated by having water with meals /snack Engage in physical activity, start with 10 minute walk and gradually increase to 30 minute 3 times a week Coding Level of Care Code Nutr Indiv Subseq (20213) Diagnoses Diabetes type 2, controlled E11.9 Diabetes mellitus complication detail: with microalbuminuria Diabetes mellitus pest control technician insulin use: without pest control technician use Time Spent (min) 30
== END 2023-10-03 12:23 | disposition home or self-care (01) ==
PROVIDERS: PCP Physician Assistant; Visit Provider Dietitian, Registered
DX: E11.9 Type 2 diabetes mellitus without complications (principal)

== ENCOUNTER → 2023-10-03 11:20 | Outpatient (BNVA) | payer MEDICAID, SELFPAY | PROVIDERS: PCP Physician Assistant; Visit Provider Dietitian, Registered | DX: E11.9 Type 2 diabetes mellitus without complications (principal) | CPT/HCPCS: 97803 ==

== ENCOUNTER 2023-11-19 10:23 | Outpatient (AMB) | payer MEDICAID, SELFPAY ==
--- NOTE | 2023-11-19 10:40 | A.OFFVIS_ITS ---
Intake VS Expanded 11/19/23 10:41 Height 5 ft 2 in Weight 249 lb 5.485 oz BMI 45.6 Intake Visit Reasons: T2DM/LVM Allergies clarithromycin Allergy (Unknown, Verified 08/14/23 10:03) Unknown liraglutide Allergy (Unknown, Verified 08/14/23 10:03) redness and itching No Known Allergies [No Known Allergies*] Allergy (Verified 08/14/23 10:03) HPI Nutrition Presentation Details Pt presents for MNT f/u for T2DM Pt reports having good motivation, fam and friends supports Reports having 3 meals per day varying amounts and food choices and including 2- 3 snacks per day Meals may consist of oatmeal made with water/blueberries and almond , 4 oz coffee, 4 oz tea fruits 4 oz protein 1 1/2 cup veg or 1 c star ch , water fruits fruit shake with almonds GI symptoms - denies Exercise: has a treadmill at home ,may use it 10 - 20 min per day 200 lbs (goal weight loss) Most Recent Diabetes Results: Creatinine 0.78 mg/dL (0.5-1.4) 12/17/22 Blood Urea Nitrogen 17 mg/dL (9-16) H 12/17/22 Sodium 142 mmol/L (135-145) 12/17/22 Potassium 4.9 mmol/L (3.3-5.1) 12/17/22 Chloride 107 mmol/L (96-108) 12/17/22 Carbon Dioxide 29 mmol/L (22-29) 12/17/22 Calcium 9.1 mg/dL (8.4-10.2) 12/17/22 AST 15 U/L (5-31) 12/17/22 ALT 21 U/L (0-31) 12/17/22 Total Protein 7.1 g/dL (6.5-8.0) 12/17/22 Albumin 3.8 g/dL (3.5-5.0) 12/17/22 [facility] Medical History Diabetes type 2, controlled Diabetic nephropathy associated with type 2 diabetes mellitus Post-surgical hypothyroidism Primary thyroid cancer Surgical History History of total thyroidectomy History of total abdominal hysterectomy History of carpal tunnel release of both wrists Family History Father CVD (cardiovascular disease) Mother CVD (cardiovascular disease) Social History Household Members: None Alcohol intake: never Patient Tobacco Use Status: Never used Tobacco Assessment & Plan Assessment & Plan (1) Diabetes type 2, controlled: Code(s): E11.9 - Type 2 diabetes mellitus without complications Qualifiers: Diabetes mellitus complication detail: with microalbuminuria Diabetes mellitus longterm insulin use: without longterm use Plan: Wt:121 Kg ( 08/2023 ), 117 kg (10/2023), 113 kg (11/2023) Est kcal needs as per MSJ: 2100 (40% carb, 30% protein/fat) Est fluid needs as per 30 ml/d: 3400 Est prot per day as per 1 g/kg bw: 113 Recommend fiber intake : 8-10 g per day and gradually increase to 25-28 g per day for women and 35-38 g for men or as tolerated Recommend sodium intake per day : less than 2000 mg Educated patient on: ( R = reviewed V = verbalizes understanding N/R = needs review N/A = not applicable * Food sources of carbohydrate, adequate serving sizes and its role in various health conditions: R V * Differences between complex carbohydrates a simple carbohydrates, role of fiber in diet: R V * Lean protein sources of foods: R * Differences between types of fats and role in diet (mono on saturated fat fatty acids, saturated fatty acids, trans fats): R * Food sources of sodium in salt and healthy modifications for heart health in kidney health: R * Vitamins and minerals: R * Healthy plate method concept: R V * Physical activity: Benefits a precaution: R V * Dietary prevention of Hyperglycemia: V Patient Instructions: Engage in physical activity , start with 10 minutes and gradually increase to 30 or as tolerated every other day Continue working on following healthy plate method Coding Level of Care Code Nutr Indiv Subseq (82652) Diagnoses Diabetes type 2, controlled E11.9 Diabetes mellitus complication detail: with microalbuminuria Diabetes mellitus terminal operations manager insulin use: without terminal operations manager use Time Spent (min) 30
[2023-11-19 10:41] VITALS: BMI 45.6
== END 2023-11-19 11:14 | disposition home or self-care (01) ==
PROVIDERS: PCP Physician Assistant; Visit Provider Dietitian, Registered
DX: E11.9 Type 2 diabetes mellitus without complications (principal)

== ENCOUNTER → 2023-11-19 10:23 | Outpatient (BNVA) | payer MEDICAID, SELFPAY | PROVIDERS: PCP Physician Assistant; Visit Provider Dietitian, Registered | DX: E66.01 Morbid (severe) obesity due to excess calories (principal); E11.21 Type 2 diabetes mellitus with diabetic nephropathy; R80.9 Proteinuria, unspecified; E89.0 Postprocedural hypothyroidism; Z68.42 Body mass index [BMI] 45.0-49.9, adult; Z71.3 Dietary counseling and surveillance | CPT/HCPCS: 97803 ==

== ENCOUNTER 2024-01-07 10:45 | Outpatient (AMB) | payer MEDICAID, SELFPAY ==
[2024-01-07 10:54] VITALS: BMI 45.3
--- NOTE | 2024-01-07 10:54 | MHC.AMNUTRGE ---
VS Expanded 01/07/24 10:54 Height 5 ft 2 in Weight 247 lb 12.793 oz BMI 45.3 Intake Visit Reasons: T2DM/LVM Allergies clarithromycin Allergy (Unknown, Verified 08/14/23 10:03) Unknown liraglutide Allergy (Unknown, Verified 08/14/23 10:03) redness and itching No Known Allergies [No Known Allergies*] Allergy (Verified 08/14/23 10:03) Nutrition Presentation Details: Pt presents for 3m f/u MNT for T2DM with Obesity Pt reports monitoring bg in the fasting state only, ranging from 103-175 mg/dl Pt reports starting to exercise at the gym 1 hour , 4 times a week, combination of aerobic/anaerobic exercises Pt reports elevated fasting blood glucose are related to having larger portion when going long hours without eating. BS Monitoring Most Recent Diabetes Results: Creatinine 0.78 mg/dL (0.5-1.4) 12/17/22 Blood Urea Nitrogen 17 mg/dL (9-16) H 12/17/22 Sodium 142 mmol/L (135-145) 12/17/22 Potassium 4.9 mmol/L (3.3-5.1) 12/17/22 Chloride 107 mmol/L (96-108) 12/17/22 Carbon Dioxide 29 mmol/L (22-29) 12/17/22 Calcium 9.1 mg/dL (8.4-10.2) 12/17/22 AST 15 U/L (5-31) 12/17/22 ALT 21 U/L (0-31) 12/17/22 Total Protein 7.1 g/dL (6.5-8.0) 12/17/22 Albumin 3.8 g/dL (3.5-5.0) 12/17/22 [facility] Medical History Diabetes type 2, controlled Diabetic nephropathy associated with type 2 diabetes mellitus Post-surgical hypothyroidism Primary thyroid cancer Surgical History History of total thyroidectomy History of total abdominal hysterectomy History of carpal tunnel release of both wrists Family History Father CVD (cardiovascular disease) Mother CVD (cardiovascular disease) Social History Household Members: None Alcohol intake: never Patient Tobacco Use Status: Never used Tobacco Assessment & Plan Assessment & Plan (1) Diabetes type 2, controlled: Code(s): E11.9 - Type 2 diabetes mellitus without complications Category: Medical Qualifiers: Diabetes mellitus care home insulin use: without care home use Diabetes mellitus complication detail: with microalbuminuria Plan: Wt:121 Kg ( 08/2023 ), 117 kg (10/2023), 113 kg (11/2023), 113 kg (01/2024) Est kcal needs as per MSJ: 2100 (40% carb, 30% protein/fat) Est fluid needs as per 30 ml/d: 3400 Est prot per day as per 1 g/kg bw: 113 Recommend fiber intake : 8-10 g per day and gradually increase to 25-28 g per day for women and 35-38 g for men or as tolerated Recommend sodium intake per day : less than 2000 mg Educated patient on: ( R = reviewed V = verbalizes understanding N/R = needs review N/A = not applicable Food sources of carbohydrate, adequate serving sizes and its role in various health conditions: R V Differences between complex carbohydrates a simple carbohydrates, role of fiber in diet: R V Lean protein sources of foods: R Differences between types of fats and role in diet (mono on saturated fat fatty acids, saturated fatty acids, trans fats): R Food sources of sodium in salt and healthy modifications for heart health in kidney health: R Vitamins and minerals: R Healthy plate method concept: R V Physical activity: Benefits a precaution: R V Dietary prevention of Hyperglycemia: V Plan Patient Instructions: Continue working n reducing on fats - saturated fats /highly processed meats/cheese products/pastries Continue working on including non starchy vegetables and adding various flavors low in sugar/salt Coding Level of Care Code Nutr Indiv Subseq (93903) Diagnoses Diabetes type 2, controlled E11.9 Diabetes mellitus meterman insulin use: without meterman use Diabetes mellitus complication detail: with microalbuminuria Time Spent (min) 25
--- NOTE | 2024-01-07 11:52 | A.OFFVIS_ITS ---
VS Expanded 01/07/24 10:54 Height 5 ft 2 in Weight 247 lb 12.793 oz BMI 45.3 Intake Visit Reasons: T2DM/LVM Allergies clarithromycin Allergy (Unknown, Verified 02/13/24 10:01) Unknown liraglutide Allergy (Unknown, Verified 02/13/24 10:01) redness and itching No Known Allergies [No Known Allergies*] Allergy (Verified 02/13/24 10:01) Nutrition Presentation Details: Pt presents for MNT folluw for t2DM/weight loss Pt reports working on meal planning, and also keeping physically active. Pt reports having family member motivating her. BS Monitoring Most Recent Diabetes Results: No Data to Display [facility] Medical History Diabetes type 2, controlled Diabetic nephropathy associated with type 2 diabetes mellitus Post-surgical hypothyroidism Primary thyroid cancer Surgical History History of total thyroidectomy History of total abdominal hysterectomy History of carpal tunnel release of both wrists Family History Father CVD (cardiovascular disease) Mother CVD (cardiovascular disease) Social History Household Members: None Alcohol intake: never Patient Tobacco Use Status: Never used Tobacco Assessment & Plan Assessment & Plan (1) Diabetes type 2, controlled: Code(s): E11.9 - Type 2 diabetes mellitus without complications Category: Medical Qualifiers: 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 insulin use: without halfway use Diabetes mellitus complication detail: with microalbuminuria Plan: Wt:121 Kg ( 08/2023 ), 117 kg (10/2023), 113 kg (11/2023), 113 kg (01/2024), 113 kg (01/2024) Est kcal needs as per MSJ: 2100 (40% carb, 30% protein/fat) Est fluid needs as per 30 ml/d: 3400 Est prot per day as per 1 g/kg bw: 113 Recommend fiber intake : 8-10 g per day and gradually increase to 25-28 g per day for women and 35-38 g for men or as tolerated Recommend sodium intake per day : less than 2000 mg Educated patient on: ( R = reviewed V = verbalizes understanding N/R = needs review N/A = not applicable * Food sources of carbohydrate, adequate serving sizes and its role in various health conditions: R V * Differences between complex carbohydrates a simple carbohydrates, role of fiber in diet: R V * Lean protein sources of foods: R * Differences between types of fats and role in diet (mono on saturated fat fatty acids, saturated fatty acids, trans fats): R * Food sources of sodium in salt and healthy modifications for heart health in kidney health: R * Vitamins and minerals: R * Healthy plate method concept: R V * Physical activity: Benefits a precaution: R V * Dietary prevention of Hyperglycemia: V Plan Patient Instructions: Continue meal plan as established. Incorporate physical activity gradually increasing walks as tolerated, goal 1 hr , 3-4 times a week Keep hydrated by having water with meals/snacks Coding Level of Care Code Nutr Indiv Subseq (34003) Diagnoses Diabetes type 2, controlled E11.9 Diabetes mellitus halfway insulin use: without halfway use Diabetes mellitus complication detail: with microalbuminuria Time Spent (min) 20
== END 2024-01-07 11:31 | disposition home or self-care (01) ==
PROVIDERS: PCP Physician Assistant; Visit Provider Dietitian, Registered
DX: E11.9 Type 2 diabetes mellitus without complications (principal)

== ENCOUNTER → 2024-01-07 10:45 | Outpatient (BNVA) | payer MEDICAID, SELFPAY | PROVIDERS: PCP Physician Assistant; Visit Provider Dietitian, Registered | DX: E11.9 Type 2 diabetes mellitus without complications (principal); E66.9 Obesity, unspecified; Z68.42 Body mass index [BMI] 45.0-49.9, adult; Z71.3 Dietary counseling and surveillance | CPT/HCPCS: 97803 ==

== ENCOUNTER 2024-02-11 11:59 | Outpatient (REF) | payer MEDICAID, SELFPAY ==
[2024-02-11 13:14] LABS: Free T4 (Free Thyroxine) 1.26 ng/dL (0.71-1.85); Thyroid Stimulating Hormone 0.75 uIU/mL (0.32-4.0)
== END 2024-02-11 12:00 | disposition home or self-care (01) ==
LOC: HO.LAB 11:59
PROVIDERS: Visit Provider Internal Medicine Endocrinology, Diabetes & Metabolism
DX: E89.0 Postprocedural hypothyroidism (principal)
CPT/HCPCS: 36415; 84439; 84443

== ENCOUNTER 2024-02-13 09:52 | Outpatient (AMB) | payer MEDICAID, SELFPAY ==
--- NOTE | 2024-02-13 09:54 | A.OFFVIS_ITS ---
Vital Signs 02/13/24 09:55 Height 5 ft 2 in Weight 240 lb 4.862 oz BMI 43.9 BP 118/72 Blood Pressure Location Rt brachial Position Sitting Pulse 63 Pulse Source Pulse Oximeter Intake Visit Reasons: f/u thyroid cancer/lvm Intake Note: Patient present today for Thyroid cancer follow up visit. Project Management Instructor Required: Yes Project Management Instructor Language: Italian Information Interpreted: non-clinical & clinical Accompanied by: Self / Same As Patient Allergies clarithromycin Allergy (Unknown, Verified 02/13/24 10:01) Unknown liraglutide Allergy (Unknown, Verified 02/13/24 10:01) redness and itching No Known Allergies [No Known Allergies*] Allergy (Verified 02/13/24 10:01) HPI Comments Details: 53 year female today for follow-up visit, Today for follow-up for thyroid cancer, postsurgical hypothyroidism She was treated with radioactive iodine for remnant ablation on 07/13/2020. Post ablation scan was on 07/22/2020 the results are not available. Patient had total thyroidectomy on 04/13/[address] Morejon. Histology was consistent with classic variant papillary thyroid cancer, left lobe, size 1.0 x 0.9 x 0.6 cm. No evidence of extrathyroidal extension. No angioinvasion. No lymphatic invasion. Two more extent within 0.1 mm of the ante rior margin. Patient had 4 positive lymph nodes from 8 examined. Largest metastatic deposits 0.3 cm, extranodal extension present. PTC a stage (PT1a, N1a, MX) . She had Thyrogen stimulated remnant ablation with 50 mCi of iodine 131 on 07/13/2020, post ablation scan Showed residual radioiodine activity within the neck consistent with function in thyroid tissue or local disease. No evidence of avid iodine distant metastatic lesions She had fine-needle biopsy on 02/04/2020 of left thyroid nodule, cytology was consistent with PTC Aromas category . Has past medical history of type 2 diabetes, hypothyroidism and thyroid nodules. She is currently on levothyroxine 150 mcg daily. She is 100% adherent she has a good method of administration. She denies cold or heat intolerance, weigth loss or gain, diarrhea, positive constipation, imsomnia, fatigue, dry skin, dysphagia, dyspnea, dysphonia, tremors, palpitations, irritability, anxiety. She denies nocturia, polyuria polydipsia. Family History: She denies family history of thyroid cancer. Recent neck US showed [facility] [address] [place] [address] Ultrasound Report Signed Patient: Howard CliftonElke Attending Dr: Shane Landers MD Ordering Physician: Shaen Landers MD Date of Service: 05/03/22 Procedure(s): US thyroid Accession Number(s): [id number] cc: Shane Landers MD~ EXAMINATION: 05/13/22 US SOFT TISSUE HEAD/NECK CLINICAL INFORMATION: Nontoxic multinodular goiter. Thyroidectomy in 04/2020 per the patient. COMPARISON: Thyroid ultrasound 01/27/2020. TECHNIQUE: Linear transducer harrison-scale and color Doppler examination with attention to the region of the thyroid bed and surrounding tissue. FINDINGS: THYROIDECTOMY BED: No residual thyroid tissue is appreciated within the thyroidectomy bed. On the right side level 3 there is a 1.0 x 0.3 x 0.6 cm lymph node without definite fatty cleft, however no cortical thickening or lobulation is appreciated. On the left side level 3 there is a normal-appearing lymph node measuring 2.0 x 0.6 x 1.4 cm in size and has a normal fatty hilum/cleft and no evidence of cortical thickening. US/US thyroid IMPRESSION: No residual thyroid tissue/mass identified within the thyroidectomy bed. ? Bilateral level 3 lymph nodes without evidence of cortical thickening or lobulation. Laboratory Tests 01/30/20 04/21/20 07/13/20 08:20 12:30 07:15 Sodium Potassium BUN Creatinine Estimated GFR Glucose (Clinic) Fasting Glucose Hgb A1c (Clinic) Calcium AST ALT Alkaline Phosphatase Albumin Triglycerides Cholesterol LDL Cholesterol Direct LDL Cholesterol, Calc HDL Cholesterol Vitamin B12 TSH Free T4 Thyroglobulin 3.4 H 1.6 H Urine Creatinine Urine Microalbumin Microalb/Creat Ratio Thyroglobulin Antibody <1 <1 <1 07/22/20 07/25/20 07/25/20 07:51 13:45 14:03 Sodium Potassium BUN Creatinine Estimated GFR Glucose (Clinic) 146 H Fasting Glucose Hgb A1c (Clinic) 6.9 H Calcium AST ALT Alkaline Phosphatase Albumin Triglycerides Cholesterol LDL Cholesterol Direct LDL Cholesterol, Calc HDL Cholesterol Vitamin B12 TSH Free T4 Thyroglobulin 0.5 H Urine Creatinine Urine Microalbumin Microalb/Creat Ratio Thyroglobulin Antibody <1 02/10/24/20 10/24/20 10:35 10:35 10:35 Sodium 143 Potassium 4.1 BUN 18 H Creatinine 0.76 Estimated GFR > 60 Glucose (Clinic) Fasting Glucose 126 H Hgb A1c (Clinic) Calcium 9.2 AST 20 ALT 33 H Alkaline Phosphatase 85 Albumin 3.9 Triglycerides 103 Cholesterol 163 LDL Cholesterol Direct 84 LDL Cholesterol, Calc 84 HDL Cholesterol 59 Vitamin B12 325 TSH 0.21 L Free T4 1.36 Thyroglobulin Urine Creatinine Urine Microalbumin Microalb/Creat Ratio Thyroglobulin Antibody 10/24/20 10/24/20 10:35 10:35 Sodium Potassium BUN Creatinine Estimated GFR Glucose (Clinic) Fasting Glucose Hgb A1c (Clinic) Calcium AST ALT Alkaline Phosphatase Albumin Triglycerides Cholesterol LDL Cholesterol Direct LDL Cholesterol, Calc HDL Cholesterol Vitamin B12 TSH Free T4 Thyroglobulin 0.2 H Urine Creatinine 223.80 Urine Microalbumin 11.0 Microalb/Creat Ratio 4.9 Thyroglobulin Antibody <1 \To see Dr. Guajardo on 11/16/22 and pt states neck US did not show cancer [facility] Medical History Diabetes type 2, controlled Diabetic nephropathy associated with type 2 diabetes mellitus Post-surgical hypothyroidism Primary thyroid cancer Surgical History History of total thyroidectomy History of total abdominal hysterectomy History of carpal tunnel release of both wrists Family History Father CVD (cardiovascular disease) Mother CVD (cardiovascular disease) Social History Household Members: None Alcohol intake: never Patient Tobacco Use Status: Never used Tobacco Physical Exam Vital Signs: Last Vital Signs Pulse 63 02/13/24 09:55 BP 118/72 02/13/24 09:55 BMI result Body Mass Index 43.9 Const Other: healed scar status post thyroidectomy. There is no cervical adenopathy palpated. Reflexes 2+ DTR Assessment & Plan Assessment & Plan (1) Primary thyroid cancer: Code(s): C73 - Malignant neoplasm of thyroid gland Category: Medical Plan: This is a 53-year-old female with a history of papillary thyroid cancer status post total thyroidectomy with radioactive iodine therapy. She is currently on levothyroxine mcg with over suppression. Recent thyroid ultrasound showed right side level 3 there is a 1.0 x 0.3 x 0.6 cm lymph node without definite fatty cleft, however no cortical thickening or lobulation is appreciated.. A thyroglobulin level remains detectable but stable.Clinically and biochemically euthyroid on 150 ug of levothyroxine Plan is obtain the note from the consult with Dr. Guajardo at [facility]. Will also recheck TSH, free T4 and thyroid and adjust levothyroxine. Continue current therapy (2) Post-surgical hypothyroidism: Code(s): E89.0 - Postprocedural hypothyroidism Category: Medical Plan: See plan for thyroid cancer Orders: Orders Free T4 (Free Thyroxine) 6 Months C73 - Malignant neoplasm of thyroid gland Thyroid Stimulating Hormone 6 Months C73 - Malignant neoplasm of thyroid gland Thyroglobulin Tumor Marker 6 Months C73 - Malignant neoplasm of thyroid gland Coding Level of Care Code Est Pt Level 3 (63310) Diagnoses Primary thyroid cancer C73 Post-surgical hypothyroidism E89.0
[2024-02-13 09:55] VITALS: BP 118/72; PULSE 63; BMI 43.9
== END 2024-02-13 10:28 | disposition home or self-care (01) ==
PROVIDERS: PCP Physician Assistant; Visit Provider Internal Medicine Endocrinology, Diabetes & Metabolism
DX: C73 Malignant neoplasm of thyroid gland (principal); E89.0 Postprocedural hypothyroidism
CPT/HCPCS: 99213

== ENCOUNTER → 2024-02-13 09:52 | Outpatient (BNVA) | payer MEDICAID, SELFPAY | PROVIDERS: PCP Physician Assistant; Visit Provider Internal Medicine Endocrinology, Diabetes & Metabolism | DX: E89.0 Postprocedural hypothyroidism (principal); C73 Malignant neoplasm of thyroid gland | CPT/HCPCS: 99212 ==

== ENCOUNTER 2024-04-08 10:24 | Outpatient (AMB) | payer MEDICAID, SELFPAY ==
[2024-04-08 10:32] VITALS: BMI 41.8
--- NOTE | 2024-04-08 10:32 | A.OFFVIS_ITS ---
VS Expanded 04/08/24 10:32 04/22/24 09:27 Height 5 ft 2 in 5 ft 2 in Weight 228 lb 6.382 oz 228 lb BMI 41.8 41.7 Intake Visit Reasons: T2DM Allergies clarithromycin Allergy (Unknown, Verified 02/13/24 10:01) Unknown liraglutide Allergy (Unknown, Verified 02/13/24 10:01) redness and itching No Known Allergies [No Known Allergies*] Allergy (Verified 02/13/24 10:01) Medication List - Last Reconciled 04/22/[address], LDN albuterol sulfate 90 mcg/actuation (Proventil HFA) 2 puffs inhalation Q4H PRN alcohol swabs (Alcohol Prep Pads) 1 pad topical .3 times a day 30 days amoxicillin 875 mg PO BID cetirizine 10 mg PO DAILY PRN cholecalciferol (vitamin D3) 50 mcg PO DAILY famotidine 20 mg PO BID PRN FreeStyle Lite Strips (blood sugar diagnostic) 1 strip miscellaneous TID 30 days NS lancets (FreeStyle Lancets) 3 times a day levothyroxine 150 mcg PO DAILY loratadine 10 mg PO DAILY montelukast 10 mg PO BEDTIME tamsulosin 0.4 mg PO DAILY timolol maleate 0.5% 1 drp ophthalmic (eye) QAM tirzepatide (Mounjaro) 2.5 mg subcut QWEEK Nutrition Presentation Details: Pt presents for MNT f/u for T2DM Pt reports working on diet modifications, reports having good support from fam members EStimated intake: protein intake estimate: 63 oz /d veg: including 6 serving/daily dairy: 5 serving/d fruits: 2/day starches : 10-16 serving/d beverages: water, coffee, soup , tea , reg beverages : 16 oz/day Physical activity: sedentary this past 2 weeks Pt reports she was switched to Mounjaro from ozempic and noticing greater weight loss BS Monitoring Most Recent Diabetes Results: No Data to Display [facility]S[employer]Jeor Equation Height: 5 ft 2 in Weight: 228 lb Resting Metabolic Rate: 1595.65 Calculated Activity Level: Mild Activity Calories Needed to Maintain Weight: 2194.02 [facility] Medical History Diabetes type 2, controlled Diabetic nephropathy associated with type 2 diabetes mellitus Post-surgical hypothyroidism Primary thyroid cancer Surgical History History of total thyroidectomy History of total abdominal hysterectomy History of carpal tunnel release of both wrists Family History Father CVD (cardiovascular disease) Mother CVD (cardiovascular disease) Social History Household Members: None Alcohol intake: never Patient Tobacco Use Status: Never used Tobacco Assessment & Plan Assessment & Plan (1) Diabetes type 2, controlled: Code(s): E11.9 - Type 2 diabetes mellitus without complications Category: Medical Qualifiers: Diabetes mellitus complication detail: with microalbuminuria Diabetes mellitus residential insulin use: without residential use Plan: Wt:121 Kg ( 08/2023 ), 117 kg (10/2023), 113 kg (11/2023), 113 kg (01/2024), 113 kg (01/2024), 104 kg (04/25- Pt reports having started mounjaro a month ago) Est kcal needs as per MSJ: 2100 (40% carb, 30% protein/fat) Est fluid needs as per 30 ml/d: 3400 Est prot per day as per 1 g/kg bw: 113 Recommend fiber intake : 8-10 g per day and gradually increase to 25-28 g per day for women and 35-38 g for men or as tolerated Recommend sodium intake per day : less than 2000 mg Educated patient on: ( R = reviewed V = verbalizes understanding N/R = needs review N/A = not applicable * Food sources of carbohydrate, adequate serving sizes and its role in various health conditions: R V * Differences between complex carbohydrates a simple carbohydrates, role of fiber in diet: R V * Lean protein sources of foods: R * Differences between types of fats and role in diet (mono on saturated fat fatty acids, saturated fatty acids, trans fats): R * Food sources of sodium in salt and healthy modifications for heart health in kidney health: R * Vitamins and minerals: R * Healthy plate method concept: R V * Physical activity: Benefits a precaution: R V * Dietary prevention of Hyperglycemia: V Plan Patient Instructions: Maintain physically active , goal 150 min per week, keep hydrated monitor for low blood sugar , treat low bllod sugar by following rule of 15, notify your doctor of any low blood sugar events for further evaluation Coding Level of Care Code Nutr Indiv Subseq (14684) Diagnoses Diabetes type 2, controlled E11.9 Diabetes mellitus complication detail: with microalbuminuria Diabetes mellitus long term acute care registered nurse insulin use: without long term acute care registered nurse use Time Spent (min) 25
[2024-04-22 12:06] VITALS: BMI 41.7
== END 2024-04-08 11:13 | disposition home or self-care (01) ==
PROVIDERS: PCP Physician Assistant; Visit Provider Dietitian, Registered
DX: E11.9 Type 2 diabetes mellitus without complications (principal)

== ENCOUNTER → 2024-04-08 10:24 | Outpatient (BNVA) | payer MEDICAID, SELFPAY | PROVIDERS: PCP Physician Assistant; Visit Provider Dietitian, Registered | DX: E11.9 Type 2 diabetes mellitus without complications (principal) | CPT/HCPCS: 97803 ==

== ENCOUNTER 2024-07-09 10:46 | Outpatient (AMB) | payer MEDICAID, SELFPAY ==
--- NOTE | 2024-07-09 11:04 | A.OFFVIS_ITS ---
VS Expanded 07/09/24 11:05 07/09/24 11:10 Height 5 ft 2 in 5 ft 2 in Weight 226 lb 6.636 oz 226 lb BMI 41.4 41.3 Intake Visit Reasons: T2DM Allergies clarithromycin Allergy (Unknown, Verified 02/13/24 10:01) Unknown liraglutide Allergy (Unknown, Verified 02/13/24 10:01) redness and itching No Known Allergies [No Known Allergies*] Allergy (Verified 02/13/24 10:01) Nutrition Presentation Details: Pt presents for MNT for T2DM Pt reports doing well, BG within normal limits as per last lab Pt reports keeping a meal routine reducing carbs to 60 g and following healthy plate method, trying diff recipes. However reports losing motivation in physical activity, has not engaged in physical activity int he past 2 months. Pt is concerned about lose skin with weight loss has questions about surgery. Pt was advised to discuss these concerns with the primary care provider. Today we weill review importance of exercise , hydration and continue healthy eating pattern BS Monitoring Most Recent Diabetes Results: No Data to Display [facility]Jeor Equation Height: 5 ft 2 in Weight: 226 lb Resting Metabolic Rate: 1586.58 Calculated Activity Level: Sedentary Calories Needed to Maintain Weight: 1903.90 [facility] Medical History Diabetes type 2, controlled Diabetic nephropathy associated with type 2 diabetes mellitus Post-surgical hypothyroidism Primary thyroid cancer Surgical History History of total thyroidectomy History of total abdominal hysterectomy History of carpal tunnel release of both wrists Family History Father CVD (cardiovascular disease) Mother CVD (cardiovascular disease) Social History Household Members: None Alcohol intake: never Patient Tobacco Use Status: Never used Tobacco Assessment & Plan Assessment & Plan (1) Diabetes type 2, controlled: Code(s): E11.9 - Type 2 diabetes mellitus without complications Category: Medical Qualifiers: Diabetes mellitus mcfp insulin use: without mcfp use Diabetes mellitus complication detail: with microalbuminuria Plan: Wt:121 Kg ( 08/2023 ), 117 kg (10/2023), 113 kg (11/2023), 113 kg (01/2024), 113 kg (01/2024), 104 kg (04/25- Pt reports having started mounjaro a month ago), 102 (07/26) Est kcal needs as per MSJ: 1900 (40% carb, 30% protein/fat) Est fluid needs as per 30 ml/d: 3100 Est prot per day as per 1 g/kg bw: 102 Recommend fiber intake : 8-10 g per day and gradually increase to 25-28 g per day for women and 35-38 g for men or as tolerated Recommend sodium intake per day : less than 2300 mg Educated patient on: ( R = reviewed V = verbalizes understanding N/R = needs review N/A = not applicable * Food sources of carbohydrate, adequate serving sizes and its role in various health conditions: R V * Differences between complex carbohydrates a simple carbohydrates, role of fiber in diet: R V * Lean protein sources of foods: R * Differences between types of fats and role in diet (mono on saturated fat fatty acids, saturated fatty acids, trans fats): R * Food sources of sodium in salt and healthy modifications for heart health in kidney health: R * Vitamins and minerals: R * Healthy plate method concept: R V * Physical activity: Benefits a precaution: R V * Dietary prevention of Hyperglycemia: V Plan Patient Instructions: Resume engaging in physical activity combination in aerobic and anaerobic exercises goal 30 minutes daily keep hydrated by having water with meals and snacks Coding Level of Care Code Nutr Indiv Subseq (44825) Diagnoses Diabetes type 2, controlled E11.9 Diabetes mellitus terminal make up operator insulin use: without terminal make up operator use Diabetes mellitus complication detail: with microalbuminuria Time Spent (min) 30
[2024-07-09 11:05] VITALS: BMI 41.4
[2024-07-09 11:10] VITALS: BMI 41.3
== END 2024-07-09 11:54 | disposition home or self-care (01) ==
LOC: HO.ENCR 10:47
PROVIDERS: PCP Physician Assistant; Visit Provider Dietitian, Registered
DX: E11.9 Type 2 diabetes mellitus without complications (principal)

== ENCOUNTER → 2024-07-09 10:46 | Outpatient (BNVA) | payer MEDICAID, SELFPAY | PROVIDERS: PCP Physician Assistant; Visit Provider Dietitian, Registered | DX: E11.9 Type 2 diabetes mellitus without complications (principal); Z71.3 Dietary counseling and surveillance | CPT/HCPCS: 97803 ==

== ENCOUNTER 2024-07-20 10:46 | Outpatient (AMB) | payer MEDICAID, SELFPAY ==
--- NOTE | 2024-07-20 10:54 | A.OFFVIS_ITS ---
Vital Signs 07/20/24 10:55 Height 5 ft 2 in Weight 231 lb 4.238 oz BMI 42.3 BP 124/70 Blood Pressure Location Rt brachial Position Sitting Pulse 71 Pulse Source Pulse Oximeter Intake Visit Reasons: f/u thyroid cancer-confirmed Intake Note: Patient present today for Thyroid cancer follow up visit. Case Therapist Required: Yes Case Therapist Language: Gas Adjuster Services: Case Therapist Present Case Therapist Name: Angelica Information Interpreted: non-clinical & clinical Accompanied by: Self / Same As Patient Allergies clarithromycin Allergy (Unknown, Verified 07/20/24 10:56) Unknown liraglutide Allergy (Unknown, Verified 07/20/24 10:56) redness and itching No Known Allergies [No Known Allergies*] Allergy (Verified 07/20/24 10:56) HPI Comments Details: 53 year female today for follow-up visit, Today for follow-up for thyroid cancer, postsurgical hypothyroidism She was treated with radioactive iodine for remnant ablation on 07/13/2020. Patient had total thyroidectomy on 04/13/[address] Morejon. Histology was consistent with classic variant papillary thyroid cancer, left lobe, size 1.0 x 0.9 x 0.6 cm. No evidence of extrathyroidal extension. No angioinvasion. No lymphatic invasion. Two more extent within 0.1 mm of the anterior margin. Patient had 4 positive lymph nodes from 8 examined. Largest metastatic deposits 0.3 cm, extranodal extension present. PTC a stage (PT1a, N1a, MX) . She had Thyrogen stimulated remnant ablation with 50 mCi of iodine 131 on 07/13/2020, post ablation scan Showed residual radioiodine activity within the neck consistent with function in thyroid tissue or local disease. No evidence of avid iodine distant metastatic lesions She had fine-needle biopsy on 02/04/2020 of left thyroid nodule, cytology was consistent with PTC [place] category . Has past medical history of type 2 diabetes, hypothyroidism and thyroid nodules. She is currently on levothyroxine 150 mcg daily. She is 100% adherent she has a good method of administration. She denies cold or heat intolerance, weigth loss or gain, diarrhea, positive constipation, imsomnia, fatigue, dry skin, dysphagia, dyspnea, dysphonia, tremors, palpitations, irritability, anxiety. She denies nocturia, polyuria polydipsia. Family History: She denies family history of thyroid cancer. Recent neck US showed [facility] [address] [place] [address] Ultrasound Report Signed Patient: Elke Apodaca Attending Dr: Shane Landers MD Ordering Physician: Shane Landers MD Date of Service: 05/03/22 Procedure(s): US thyroid Accession Number(s): [id number] cc: Shane Landers MD~ EXAMINATION: 05/13/22 US SOFT TISSUE HEAD/NECK CLINICAL INFORMATION: Nontoxic multinodular goiter. Thyroidectomy in 04/2020 per the patient. COMPARISON: Thyroid ultrasound 01/27/2020. TECHNIQUE: Linear transducer harrison-scale and color Doppler examination with attention to the region of the thyroid bed and surrounding tissue. FINDINGS: THYROIDECTOMY BED: No residual thyroid tissue is appreciated within the thyroidectomy bed. On the right side level 3 there is a 1.0 x 0.3 x 0.6 cm lymph node without definite fatty cleft, however no cortical thickening or lobulation is appreciated. On the left side level 3 there is a normal-appearing lymph node measuring 2.0 x 0.6 x 1.4 cm in size and has a normal fatty hilum/cleft and no evidence of cortical thickening. US/US thyroid IMPRESSION: No residual thyroid tissue/mass identified within the thyroidectomy bed. ? Bilateral level 3 lymph nodes without evidence of cortical thickening or lobulation. Laboratory Tests 01/30/20 04/21/20 07/13/20 08:20 12:30 07:15 Sodium Potassium BUN Creatinine Estimated GFR Glucose (Clinic) Fasting Glucose Hgb A1c (Clinic) Calcium AST ALT Alkaline Phosphatase Albumin Triglycerides Cholesterol LDL Cholesterol Direct LDL Cholesterol, Calc HDL Cholesterol Vitamin B12 TSH Free T4 Thyroglobulin 3.4 H 1.6 H Urine Creatinine Urine Microalbumin Microalb/Creat Ratio Thyroglobulin Antibody <1 <1 <1 07/22/20 07/25/20 07/25/20 07:51 13:45 14:03 Sodium Potassium BUN Creatinine Estimated GFR Glucose (Clinic) 146 H Fasting Glucose Hgb A1c (Clinic) 6.9 H Calcium AST ALT Alkaline Phosphatase Albumin Triglycerides Cholesterol LDL Cholesterol Direct LDL Cholesterol, Calc HDL Cholesterol Vitamin B12 TSH Free T4 Thyroglobulin 0.5 H Urine Creatinine Urine Microalbumin Microalb/Creat Ratio Thyroglobulin Antibody <1 10/24/20 10/24/20 10/24/20 10:35 10:35 10:35 Sodium 143 Potassium 4.1 BUN 18 H Creatinine 0.76 Estimated GFR > 60 Glucose (Clinic) Fasting Glucose 126 H Hgb A1c (Clinic) Calcium 9.2 AST 20 ALT 33 H Alkaline Phosphatase 85 Albumin 3.9 Triglycerides 103 Cholesterol 163 LDL Cholesterol Direct 84 LDL Cholesterol, Calc 84 HDL Cholesterol 59 Vitamin B12 325 TSH 0.21 L Free T4 1.36 Thyroglobulin Urine Creatinine Urine Microalbumin Microalb/Creat Ratio Thyroglobulin Antibody 10/24/20 10/24/20 10:35 10:35 Sodium Potassium BUN Creatinine Estimated GFR Glucose (Clinic) Fasting Glucose Hgb A1c (Clinic) Calcium AST ALT Alkaline Phosphatase Albumin Triglycerides Cholesterol LDL Cholesterol Direct LDL Cholesterol, Calc HDL Cholesterol Vitamin B12 TSH Free T4 Thyroglobulin 0.2 H Urine Creatinine 223.80 Urine Microalbumin 11.0 Microalb/Creat Ratio 4.9 Thyroglobulin Antibody <1 \To see Dr. Guajardo on 11/16/22 and pt states neck US did not show cancer . Currently on 150 mcg levothyroxine [facility] Medical History Diabetes type 2, controlled Diabetic nephropathy associated with type 2 diabetes mellitus Post-surgical hypothyroidism Primary thyroid cancer Surgical History History of total thyroidectomy History of total abdominal hysterectomy History of carpal tunnel release of both wrists Family History Father CVD (cardiovascular disease) Mother CVD (cardiovascular disease) Social History Household Members: None Alcohol intake: never Patient Tobacco Use Status: Never used Tobacco Physical Exam Const Other: healed scar status post thyroidectomy. There is no cervical adenopathy palpated. Reflexes 2+ DTR Assessment & Plan Assessment & Plan (1) Primary thyroid cancer: Code(s): C73 - Malignant neoplasm of thyroid gland Category: Medical Plan: This is a 53-year-old female with a history of papillary thyroid cancer status post total thyroidectomy with radioactive iodine therapy. She is currently on levothyroxine mcg with over suppression. Recent thyroid ultrasound showed right side level 3 there is a 1.0 x 0.3 x 0.6 cm lymph node without definite fatty cleft, however no cortical thickening or lobulation is appreciated.. A thyroglobulin level remains detectable but stable.Clinically and biochemically euthyroid on 150 ug of levothyroxine Plan is to recheck TSH, free T4 and thyroglobulin and adjust levothyroxine. Will also have patient follow up with Dr. Phan extruder operator helper on practice for expertise and neck ultrasound and thyroid cancer Coding Level of Care Code Est Pt Level 3 (49299) Diagnoses Primary thyroid cancer C73
[2024-07-20 10:55] VITALS: BP 124/70; PULSE 71; BMI 42.3
== END 2024-07-20 11:12 | disposition home or self-care (01) ==
PROVIDERS: PCP Physician Assistant; Visit Provider Internal Medicine Endocrinology, Diabetes & Metabolism
DX: C73 Malignant neoplasm of thyroid gland (principal)
CPT/HCPCS: 99213

== ENCOUNTER → 2024-07-20 10:46 | Outpatient (BNVA) | payer MEDICAID, SELFPAY | PROVIDERS: PCP Physician Assistant; Visit Provider Internal Medicine Endocrinology, Diabetes & Metabolism | DX: C73 Malignant neoplasm of thyroid gland (principal) | CPT/HCPCS: 99212 ==

== ENCOUNTER 2024-07-20 11:18 | Outpatient (REF) | payer MEDICAID, SELFPAY ==
[2024-07-20 12:44] LABS: Free T4 (Free Thyroxine) 1.28 ng/dL (0.71-1.85); Thyroid Stimulating Hormone 2.65 uIU/mL (0.32-4.0)
[2024-07-23 04:49] LABS: Thyroglobulin Antibody <1 IU/mL (<=1); Thyroglobulin Level 0.2 ng/mL
== END 2024-07-20 11:19 | disposition home or self-care (01) ==
LOC: HO.LAB 11:18
PROVIDERS: PCP Physician Assistant; Visit Provider Internal Medicine Endocrinology, Diabetes & Metabolism
DX: C73 Malignant neoplasm of thyroid gland (principal)
CPT/HCPCS: 36415; 84432; 84439; 84443; 86800

== ENCOUNTER 2024-11-05 09:52 | Outpatient (AMB) | payer MEDICAID, SELFPAY ==
[2024-11-05 10:04] VITALS: BMI 43.3
--- NOTE | 2024-11-05 10:04 | MHC.AMNUTRGE ---
VS Expanded 11/05/24 10:04 Height 5 ft 2 in Weight 236 lb 8.896 oz BMI 43.3 Intake Visit Reasons: T2DM Allergies clarithromycin Allergy (Unknown, Verified 07/20/24 10:56) Unknown liraglutide Allergy (Unknown, Verified 07/20/24 10:56) redness and itching No Known Allergies [No Known Allergies*] Allergy (Verified 07/20/24 10:56) Nutrition Presentation Details: Pt presents for MNT f/u for obesity and DM Pt admits to dietary indiscretion these pasts months and reduced physical activity Reports BG range in 120s , no hypoglycemia BS Monitoring Most Recent Diabetes Results: No Data to Display [facility] Medical History Diabetes type 2, controlled Diabetic nephropathy associated with type 2 diabetes mellitus Post-surgical hypothyroidism Primary thyroid cancer Surgical History History of total thyroidectomy History of total abdominal hysterectomy History of carpal tunnel release of both wrists Family History Father CVD (cardiovascular disease) Mother CVD (cardiovascular disease) Social History Household Members: None Alcohol intake: never Patient Tobacco Use Status: Never used Tobacco Assessment & Plan Assessment & Plan (1) Diabetes type 2, controlled: Code(s): E11.9 - Type 2 diabetes mellitus without complications Category: Medical Qualifiers: Diabetes mellitus group home insulin use: without business employment specialist use Diabetes mellitus complication detail: with microalbuminuria Plan: Wt:121 Kg ( 08/2023 ), 117 kg (10/2023), 113 kg (11/2023), 113 kg (01/2024), 113 kg (01/2024), 104 kg (04/25- Pt reports having started mounjaro a month ago), 102 (07/26) , 107 kg (11/24) Est kcal needs as per MSJ: 1900 (40% carb, 30% protein/fat) Est fluid needs as per 30 ml/d: 3100 Est prot per day as per 1 g/kg bw: 102 Recommend fiber intake : 8-10 g per day and gradually increase to 25-28 g per day for women and 35-38 g for men or as tolerated Recommend sodium intake per day : less than 2300 mg Educated patient on: ( R = reviewed V = verbalizes understanding N/R = needs review N/A = not applicable Food sources of carbohydrate, adequate serving sizes and its role in various health conditions: R V Differences between complex carbohydrates a simple carbohydrates, role of fiber in diet: R V Lean protein sources of foods: R Differences between types of fats and role in diet (mono on saturated fat fatty acids, saturated fatty acids, trans fats): R Food sources of sodium in salt and healthy modifications for heart health in kidney health: R Vitamins and minerals: R Healthy plate method concept: R V Physical activity: Benefits a precaution: R V Dietary prevention of Hyperglycemia: V Plan Patient Instructions: Resume meal planning, 7065-3987 calories /day ,choosing low fat options consume 90 g of protein per day divided in 3-4 servings Coding Level of Care Code Nutr Indiv Subseq (68913) Diagnoses Diabetes type 2, controlled E11.9 Diabetes mellitus business employment specialist insulin use: without group home use Diabetes mellitus complication detail: with microalbuminuria Time Spent (min) 30
--- OUTSIDE RECORDS SUMMARY | 2024-11-05 11:23 | XMS_ITS | Encounter Summary ---
Author Organization [facility] Address [address] [place] [address] Care Team Providers Care Primary Substance Abuse Counselor Name Role Phone Bonita Jessie HA Primary Care Provider + [phone] Reason for Visit * Reason Comments Prior Authorization Encounter Details Date Type Department Care Team ([facility] st Contact Info) Description 10/16/2024 Interim Notes [facility] [address] [place] [phone] Qamar Moralez MS [address] [place] [address] Social History Tobacco Use Types Packs/Day Years Used Date Smoking Tobacco: Never Smokeless Tobacco: Never Alcohol Use Standard Drinks/Week Comments No 0 (1 standard drink = 0.6 oz pur e alcohol) Social Connections Answer Date Recorded Connectedness 1 01/08/2024 Financial Resource Strain Answer Date R ecorded Financial Resource Strain 1 2023 Stress Answer Date Recorded Stress 1 01/08/2024 Physical Activity Answer Date Recorded Physical Activity 0 04/22/2019 Food Insecurity Answer Date Recorded Food 1 01/08/2024 Transportation Needs Answer Date Record ed Transportation 1 01/08/2024 Housing Stability Answer Date Recorded Housing 1 01/08/2024 Safety and Environment Answer Date Darryl rded Safety 1 01/08/2024 Utilities Answer Date Recorded Utilities 1 01/08/2024 Employment Answer Date Recorded Stress 0 11/20/2021 Comments No Sex and Gender Information Value Date Recorded Sex Assigned at Female 06/11/2017 5:49 PM PDT Legal Sex Female 9:57 AM PDT Gender Identity Female 06/11/2017 5:49 PM PDT Sexual Orientation Straight 06/11/2017 5: 49 PM PDT documented as of this encounter Functional Status * Is the patient deaf or has significant hearing impairment? Answer Date of Assessment Author No 01/16/2023 4:11 PM PDT * Is the patient blind or has a significant vision impairment? Answer Date of Assessment Author No 01/16/2023 4:11 PM PDT * Does the patient have difficulty walking or going up and/or down stairs? Answer Date of Assessment Author No 01/16/2023 4:11 PM PDT * Does the patient have difficulty bathing and/or dressing? Answer Date of Assessment Author No 01/16/2023 4:11 PM PDT * Does the patient have difficulty doing errands? Answer Date of Assessment Author No 01/16/2023 4:11 PM PDT documented as of this encounter Mental Status * Does the patient have difficulty making decisions? Answer Entry Date Author No 01/16/2023 4:11 PM PDT documented in this encounter Progress Notes * Qamar Moore MA - 10/16/2024 3:19 PM EST Maribeth HATHAWAY Approved till 10/16/2025 documented in this encounter Plan of Treatment Upcoming Encounters Date Type Department Care Team (Late st Contact Info) Description 11/18/2024 9:20 AM EDT Office Visit [facility] [address] [place] [address] Magdalena Epps PA-C [address] [place] [id number] documented as of this encounter Visit Diagnoses Not on filedocumented in this encounter Additional Health Concerns Assessment Noted Time PHQ-9 Depression Total Score: 0 01/08/20 10:44 AM PDT documented as of this encounter Care Teams Primary Substance Abuse Counselor Relationship Specialty Start Date End Date Jessie Mesa PA-C [address] [place] [phone] PCP - General Internal Medicine 12/02/15 documented as of this encounter
--- OUTSIDE RECORDS SUMMARY | 2024-11-05 11:23 | XMS_ITS | Clinical Summary ---
Author Organization [facility] [email or web address] Address [address] [place] [address] Phone Care Team Providers Care Residential Mortgage Manager Name Role Phone Airam Lofton Primary Care Provider [phone] Allergies Active Allergy Reactions Criticality Noted Date Comments Clarithromycin 06/21/2021 Dupilumab Rash 02/27/2022 Levofloxacin Numbness,Swelling 03/19/2023 Liraglutide 06/21/2021 Medications fluticasone propion-salmeter oL (Advair HFA) 230-21 mcg/actuation inhaler TOME DOS INHALACIONES POR VIA ORAL DOS VECES AL DELMA RINSE MOUTH AND THROAT AND SPIT AFTER USE 4 Active glipiZIDE (GLUCOTROL XL) 2.5 mg 24 hr tablet Take 1 Tablet by mouth Active albuterol 2.5 mg /3 mL (0.083 %) nebulizer solution Take 1 Vial by nebulization every 4 hours as needed for Wheezing, Shortness of Breath or Cough. 4 Active fluticasone propionate (FLONASE) 50 mcg/actuation nasal spray 1 [place] by Nasal route daily. 4 Active montelukast (SINGULAIR) 10 mg tablet Take 1 Tablet by mouth at bedtime. 4 Active cetirizine (ZyrTEC) 10 mg tablet Take 1 Tablet by mouth daily. 4 Active esomeprazole (NexIUM) [address] capsule TOME FIORELLA CAPSULA TODOS LOS CEE EN LA MANANA ANTES DEL DESAYUNO 4 Active diclofenac (VOLTAREN) 1 % topical gel Apply 2 g topically. 3 Active FREESTYLE LANCETS MISC Freestyle lite lancets, use bid dx E11.9 2 Active acetaminophen (TYLENOL 8 HOUR) 650 mg 8 hr tablet Take 650 mg by mouth as needed. 2 Active cholecalciferol (VITAMIN D-3) 50 mcg (2,000 unit) capsule Take 2,000 Int'l Units by mouth. 0 Active timolol (TIMOPTIC) 0.5 % ophthalmic solution 1 Drop 2 times daily. Active aspirin (ASPIR-81 ORAL) Take 81 mg by mouth three times a week. 9 Active levothyroxine (SYNTHROID, LEVOTHROID) 150 mcg tablet Take 1 tablet (150 mcg total) by mouth 1 (one) time each day before breakfast. Active tirzepatide (Mounjaro) 2.5 mg/0.5 mL injection Inject 0.5 mL (2.5 mg total) under the skin every 7 (seven) days. Active amoxicillin (AMOXIL) 500 mg capsule Take 4 capsules 30-60 minutes prior to dental procedures. 16 capsule 1 4 Active Ventolin HFA 90 mcg/actuation inhalerIndicatio ns:Unspecified asthma with (acute) exacerbation INHALE 2 PUFFS INTO THE LUNGS EVERY 6 HOURS NEEDED FOR COUGH, WHEEZING OR SHORTNESS OF BREATH 18 each 1 4 Active azelastine (ASTELIN) 137 mcg (0.1 %) nasal sprayIndications :Nasal congestion 2 SPRAYS BY EACH NARE ROUTE 2 TIMES DAILY. USE IN EACH NOSTRIL DIRECTED 90 mL 3 5 Active Active Problems Problem Noted Date Diagnosed Date Obstructive sleep apnea 12/18/2021 Overview (05/27/2024): [facility] Home sleep test 12/07/2021; weight 252; BMI 46. AHI 15. 2 obstructive apneas 132 hypopneas. Average oxygen saturation 89% with oxygen estela 67%. Obstructive sleep apnea-mild with mostly hypopneas and with nocturnal hypoxemia based on 2021 home sleep test. Last Assessment & Plan: Patient is being evaluated for possible sleep apnea hopefully she will have home equipment in place to diminish her risk of nocturnal hypoxia which can lead to other cardiac issues including hypertension and arrhythmias DM (diabetes mellitus) 05/27/2021 Mild intermittent asthma, uncomplicated 05/27/20 21 Hypothyroidism 05/27/2021 Glaucoma 05/27/2021 HTN (hypertension) 05/27/2021 Assessment & Plan (07/06/2024 11:41 AM EST): Patient's blood pressure is well controlled. Orders: ECG 12 lead Transthoracic echocardiogram (TTE) complete with PRN contrast, bubble, strain, and 3D order panel; Future Dyspnea 03/31/2021 Overview (05/27/2024): Last Assessment & Plan: The patient still complains of exertional dyspnea. Her EF is 40 but that is not unexpected given her bundle branch block and her previous history of tetralogy. She is diabetic and she is 50 so we will send her for stress echo to make sure that this is nonischemic. But the most likely etiology for her dyspnea that started with Covid is Covid. Her pulmonary function testing was really not much in the way of being enlightening but I am with him make them have an appointment set up for her to be seen by pulmonary cleaning validation consultant. My suspicion is that the stress echo will be normal. Unfortunately with an EF of 40 her blood pressures not can tolerate the introduction of HANSA at this time and beta-blockers not an option either. If she has a negative stress echo and her EF is still significantly low we could consider the possible need for resynchronization therapy Lab test negative for COVID-19 virus 03/18/2021 Asthma 12/20/2020 Tetralogy of Fallot 12/20/2020 Overview (05/27/2024): Last Assessment & Plan: History of tetralogy of Fallot status postrepair. No arrhythmias no palpitations no chest discomfort.Plan on repeat echocardiogram in 6 months. Assessment & Plan (07/06/2024 11:41 AM EST): Patient is asymptomatic. Echocardiogram in 1 year. Orders: ECG 12 lead Transthoracic echocardiogram (TTE) complete with PRN contrast, bubble, strain, and 3D order panel; Future Palpitations 11/21/2020 Overview (05/27/2024): Last Assessment & Plan: Patient patient be scheduled for a event monitor/loop recorder to determine whether the palpitations that she is experiencing represent any underlying arrhythmia. Thoracic aortic aneurysm (TAA) 11/21/2020 Overview (05/27/2024): Last Assessment & Plan: Future echocardiogram will be scheduled to continue to monitor the diameter of her thoracic aorta. If we see a 0.5 cm or greater increase in diameter size we will send her for a CAT scan Congenital heart disease in adult 10/12/2020 Overview (05/27/2024): Last Assessment & Plan: History of 2 surgeries to repair of tetralogy of Fallot. Still has her usual complaints of shortness of breath, chest pain, palpitations. Patient's had a low globally hypokinetic left ventricle ejection fraction in the years past. Recently had Covid. 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 Will obtain an echocardiogram to reassess LV systolic function obviously if there is a significant deterioration we may need to consider evaluation for coronary disease. She does have diabetes. Patient is no longer on medical management for hypertension. This may be partly to do with her recent thyroidectomy for thyroid cancer. Will obtain an echocardiogram and have her come back. We seem to be constantly testing her for palpitations with Holter's and stress test and echo was the only finding is her corrected tetralogy. COVID-19 08/02/2020 Immunizations Name Administration Dates Next Due Influenza Quadravalent, MDCK , 0.5ml, preservative free (Flucelvax) 6mo and older 09/29/2018 Influenza Quadravalent, MDCK , 0.5ml, with preservative (Flucelvax) 6mo and older 05/08/2020,06/11/2019,07/03/2017,07/03 Influenza trivalent, with pr eservative (Fluzone; Afluria) 6mo and older 06/05/2016 bookletmobile SARS-CoV-2 COVID-19, mRNA, LNP-S, preservative free 04/21/2021,03/31/2021 Pneumococcal polysaccharide 23 valent (Pneumovax 23) 2yo and older 05/08/2020 Surgical History Surgery Date Site/Laterality Comments CARDIAC SURGERY 1979 PROCEDURE: HISTORICAL HEART SURGERY(ASD,VSD,VALVES) OTHER SURGICAL HISTORY 2019 PROCEDURE: HISTORICAL SUBTOTAL THYROIDECTOMY CHOLECYSTECTOMY 2010 PROCEDURE: PA CHOLECYSTECTOMY HYSTERECTOMY 1998 PROCEDURE: HISTORICAL HYSTERECTOMY; COMMENT: No ovaries removed. SALPINGOOPHORECTOMY 2012 PROCEDURE: PA LAPAROSCOPY W/RMVL ADNEXAL STRUCTURES COLONOSCOPY 09/28/2021 PROCEDURE: HISTORICAL COLONOSCOPY; COMMENT: negative Medical History Medical History Date Comments Covid-19 08/2020 DX:COVID-19 Mild intermittent asthma, uncomplicated DX:Mild intermittent asthma, uncomplicated Thoracic aortic aneurysm (TA A) ([facility]) DX:Thoracic aortic aneurysm (TAA) ([facility]) DM (diabetes mellitus) ([facility]) DX:DM (diabetes mellitus) ([facility]) Glaucoma DX:Glaucoma Hypothyroidism DX:Hypothyroidis m HTN (hypertension) DX:HTN (hyper tension) Dysphagia DX:Dysphagia Epigastric pain DX:Epigastric pa in Diabetes 1.5, 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, managed as type 2 ([facility]) Retained food in stomach DX:Tanisha ined food in stomach Esophageal reflux DX:Esophageal reflux Gastritis DX:Gastritis Esophageal dysmotility DX:Esopha geal dysmotility Family History Medical History Relation Name Comments Heart attack Father 50 Hypertension Mother Hypertension Sister 1 Hypertension Sister 2 Emphysema Neg Hx Lung cancer Neg Hx Lung disease Neg Hx Relation Name Status Comments Father Mother Alive Sister 1 Alive Sister 2 Alive Sister 3 Alive Social History Tobacco Use Types Packs/Day Years Used Date Smoking Tobacco: Never Smokeless Tobacco: Never Alcohol Use Standard Drinks/Week Comments No 0 (1 standard drink = 0.6 oz pur e alcohol) Comments Unknown Sex and Gender Information Value Date Recorded Sex Assigned at Not on file Legal Sex Female 9:50 AM EST Gender Identity Not on file Sexual Orientation Not on file Obstetrics History Last Filed Vital Signs Vital Sign Reading Time Taken Comments Blood Pressure 110/80 07/06/2024 10:42 AM EST Pulse 76 07/06/2024 10:42 AM EST Temperature - - Respiratory Rate - - Oxygen Saturation 98% 07/06/2024 10:42 AM EST Inhaled Oxygen Concentration - - Weight 103 kg (228 lb) 07/06/2024 10:42 AM EST Height 157.5 cm (5' 2 ) 07/06/2024 10:42 AM EST Body Mass Index 41.7 07/06/2024 10:42 AM EST Plan of Treatment Upcoming Encounters Date Type Department Care Team (Late st Contact Info) Description 11/18/2024 1:15 PM EDT [facility]ointment [facility] [address] [place] [id number] 12/17/2024 10:30 AM EDT Office Visit Pulmonolgy - [place] [address] [place] [phone] Airam Kirby NP [address] [facility] [address] [place] [address] 07/06/2025 10:00 AM EST Ancillary Procedure [facility] [address] [facility] [address] [place] [address] Health Maintenance Due Date Last Done Comments Diabetes: Annual Foot Exam 1980 Diabetes: Annual Retina Eye Exam 1980 Hepatitis B Vaccines (1 of 3 - 19+ 3-dose series) 1989 Cervical Cancer Screening: Pap Smear 12/22/1991 COVID-19 Vaccine (3 - Pfizer risk series) 05/19/2021 04/21/2021, 03/31/2021 Social Influencers of Health Screening 08/11/2022 Diabetes: Blood Sugar Control Test (HGBA1C) 12/15/2024 06/16/2024, 07/31/2023 Depression Screening 01/07/2025 01/08/2024 Diabetes: Annual Urine Albumin-Creatinine Ratio (uACR) 06/16/2025 06/16/2024, 01/22/2023, 06/13/2021, Additional history exists Diabetes: Annual GFR (Glomerular Filtration Rate) 06/16/2025 06/16/2024, 04/09/2024, 07/31/2023 Hypertension/CHF/CAD Annual BMP Blood Test 06/16/2025 06/16/2024, 04/09/2024, 07/31/2023 Breast Cancer Screening 11/17/2025 11/18/19 24, 11/13/2022, 11/06/2021, Additional history exists Cholesterol Screening (Lipid Panel) 06/16/2029 06/16/2024, 06/16/2024, 07/31/2023, Additional history exists Colorectal Cancer Screening: Colonoscopy 10/03/2031 09/28/2021 DTaP,Tdap,and Td Vaccines (2 - Td or Tdap) 06/16/2034 06/16/2024 HIV Screening Completed 07/08/2020, 07/08/2020 Hepatitis C Screening Completed 07/08/2020 Zoster Vaccines Completed 10/10/2022, 07/11/2022 Pneumococcal Vaccine: 50+ Years Completed 01/08/2024, 05/08/2020 Pneumococcal Vaccine: Pediatrics (0 to 5 Years) and At-Risk Patients (6 to 64 Years) Completed 01/08/2024, 05/08/2020 Influenza Vaccine Completed 06/16/2024, , 05/08/2020, Additional history exists HIB Vaccines Aged Out No longer eligi ble based on patient's age to complete this topic HPV Vaccines Aged Out No longer eligi ble based on patient's age to complete this topic Hepatitis A Vaccines Aged Out No long er eligible based on patient's age to complete this topic IPV Vaccines Aged Out No longer eligi ble based on patient's age to complete this topic MMR Vaccines Aged Out No longer eligi ble based on patient's age to complete this topic Meningococcal ACWY Vaccine Aged Out N o longer eligible based on patient's age to complete this topic Meningococcal B Vacine Aged Out No lo nger eligible based on patient's age to complete this topic RSV Immunization Patients Under 20 months Aged Out No longer eligible based on patient's age to complete this topic Varicella Vaccines Aged Out No longer eligible based on patient's age to complete this topic Procedures Procedure Name Priority Date/Time Associated Diagnosis Comments SWATI SCREENING DIGITAL Routine 11/18/2023 11:46 AM EDT Encounter for screening mammogram for malignant neoplasm of breast HM ANNUAL BMP BLOOD TEST Routine 07/31/2023 HEMOGLOBIN A1C Routine 07/31/2023 LIPID PANEL Routine 07/31/2023 HM COLONOSCOPY Routine 09/28/2021 HEPATITIS C SCREENING Routine 07/08/2020 HM HIV SCREENING Routine 07/08/2020 HM URINE ALBUMIN CREATININE RATIO Routine 01/22/2019 from Last 3 Months or Most Recently Relevant to Health Maintenance Results * SWATI SCREENING DIGITAL (11/18/2023 11:46 AM EDT) Anatomical Region Laterality Modality Mammography 11/18/2023 10:1 3 AM EDT Narrative 11/18/2023 11:46 AM EDT [facility] Diagnostic Imaging Department [address] [place] [address] Patient: ??MARITZA APODACA ?/Age/Sex: 1970 - 52 - F Unit#: ??[id number] ? Location/Status: ??SPDIMAM/REG CLI ? Mnemonic/Ordering Site: ??DIGSC/SPMAM Ordering Physician: ??AIRAM LOFTON Swati Screening Digital - 11/18/23 - 1055 Report Status:Signed EXAM: Swati Screening Digital EXAM DATE AND TIME: 11/18/2023 10:55 AM HISTORY: ??Annual screening COMPARISON: ??Multiple exams dating back to 2006 TECHNIQUE: Bilateral digital breast tomosynthesis was performed in the CC and MLO projections. Computer aided detection with Laserlike 3D 3.1 was employed. TISSUE DENSITY: b. There are scattered areas of fibroglandular density. FINDINGS: No suspicious masses, grouped microcalcifications, or areas of architectural distortion are seen. The skin and vascularity are unremarkable. IMPRESSION: Stable mammographic appearance of the breasts. ??No evidence of malignancy is seen. A negative mammogram in the presence of a clinically suspicious palpable abnormality does not preclude the possibility of malignancy or alter the indications for biopsy. BI-RADS: ??Category 1: Negative RECOMMENDATION(S): 1: Routine screening mammogram BILATERAL in 1 year. 3341F, 7025F Dictating Physician: ??TEODORO MISHRA MD Electronically Signed by: ??TEODORO MISHRA MD Dic Date/Time: ??11/18/23 1145 Sign date/Time: ??11/18/23 1146 Procedure Note Teodoro Mishra MD - 04/20/2024 [facility] Diagnostic Imaging Department [address] [place] [id number] Patient: MARITZA APODACA D.O.B./Age/Sex: 1970 - 52 -F Unit#: [id number] Location/Status: [facility] CLI Mnemonic/Ordering Site: [facility] Ordering Physician: AIRAM LOFTON [facility] Screening Digital - 11/18/23 - 1055 Report Status:Signed EXAM: [facility] Screening Digital EXAM DATE AND TIME: 11/18/2023 10:55 AM HISTORY: Annual screening COMPARISON: Multiple exams dating back to 2006 TECHNIQUE: Bilateral digital breast tomosynthesis was performed in the CCand MLO projections. Computer aided detection with Laserlike 3D 3.1was employed. TISSUE DENSITY: b. There are scattered areas of fibroglandular density. FINDINGS: No suspicious masses, grouped microcalcifications, or areas ofarchitectural distortion are seen. The skin and vascularity are unremarkable. IMPRESSION: Stable mammographic appearance of the breasts. No evidence of malignancyis seen. A negative mammogram in the presence of a clinically suspicious palpable abnormality does not preclude the possibility of malignancy or alter the indications for biopsy. BI-RADS: Category 1: Negative RECOMMENDATION(S): 1: Routine screening mammogram BILATERAL in 1 year. 3341F, 7068F Dictating Physician: TEODORO MISHRA MD Electronically Signed by: TEODORO MISHRA MD Dic Date/Time: 11/18/23 1145 Sign date/Time: 11/18/23 1146 Airam [facility] BI PROCEDURES Final Result * Annual BMP Blood Test (07/31/2023) [facility] Annual BMP Blood Test Abstracted Result [facility] Historical Provider HEALTH MAINTENANCE Final Result * Hemoglobin A1c (07/31/2023) [facility] Hemoglobin A1C 0.0 % Comment:No interpretation Blood Venous blood specimen / Unknown Historical Provider LAB BLOOD ORDERABLES Eunice l Result * Lipid panel (07/31/2023) [facility] Triglycerides 0 mg/dL Comment:No interpretation Cholesterol 0 mg/dL Comment:No interpretation HDL 0 mg/dL Comment:No interpretation LDL Cholesterol 0 mg/dL Comment:No interpretation Blood Venous blood specimen / Unknown Historical Provider LAB BLOOD ORDERABLES Eunice l Result * Colonoscopy (09/28/2021) Pathologist [facility] Colonoscopy No interpretation , abstracted Anatomical Region Laterality Modality Other Historical Provider HEALTH MAINTENANCE Final Result * HIV Screening (07/08/2020) Pathologist [facility] HIV Screening Abstracted Result [facility] Provider HEALTH MAINTENANCE Final Result * Hepatitis C Screening (07/08/2020) Pathologist [facility] Hepatitis C Screening Abstracted [facility] Provider HEALTH MAINTENANCE Final Result * Urine Albumin Creatinine Ratio (01/22/2019) Pathologist [facility] Urine Albumin Creatinine Ratio Abstracted Result [facility] Provider HEALTH MAINTENANCE Final Result from Last 3 Months or Most Recently Relevant to Health Maintenance Insurance MEDICAID - [place] Care Teams Residential Mortgage 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
--- OUTSIDE RECORDS SUMMARY | 2024-11-05 11:23 | XMS_ITS | Clinical Summary ---
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 Name Role Phone Jessie Mesa PA-C Primary Care Provider [phone] Source Comments PLEASE NOTE, if this patient is a minor, it may be UNLAWFUL to discuss sensitive information that is contained in these records (such as FAMILY PLANNING, MENTAL HEALTH or SUBSTANCE ABUSE) with the minor patient's parent or other person without the patient's specific authorization.[facility] Allergies Active Allergy Reactions Criticality Noted Date Comments Clarithromycin Other Severe 05/17/2016 TACHYCARDIA Liraglutide Rash 08/10/2019 Rash Medications acetaminophen (TYLENOL 8 HOUR) 650 mg CR tabletIndications:F ever, unspecified fever cause Take 1 Tablet by mouth every 8 (eight) hours as needed for pain 30 Tablet 2 Active PROAIR HFA 90 mcg/actuation inhalerIndications: 2019 novel coronavirus disease (COVID-19) INHALE 2 PUFFS INTO THE LUNGS EVERY 4 HOURS NEEDED FOR COUGH OR WHEEZING 8.5 g 5 2 Active cetirizine (ZYRTEC) 10 mg tabletIndications:S easonal allergies TAKE 1 TABLET BY MOUTH ONCE DAILY NEEDED FOR ALLERGIES 90 Tablet 3 Active esomeprazole (NEXIUM) [address] capsuleIndications: Dyspepsia Take 1 Capsule by mouth every morning before breakfast 90 Capsule 2 3 Active FREESTYLE LANCETS 28 gaugeIndications:Ty pe 2 diabetes mellitus without complication, without long-term current use of insulin ([facility]) FREESTYLE LITE LANCETS, USE TWICE A DAY DX E11.9 100 Each 11 3 Active alcohol swabs Use bid Dx E11.9 100 Each 3 Active levothyroxine 137 mcg tablet Take 1 Tablet by mouth once daily 90 Tablet 3 3 Active metFORMIN (GLUCOPHAGE) 500 mg tabletIndications:T ype 2 diabetes mellitus without complication, without long-term current use of insulin ([facility]) TOME FIORELLA TABLETA DOS VECES AL DELMA CON ALIMENTO 180 Tablet 2 3 Active lidocaine (XYLOCAINE) 5 % ointIndications:Lef t lumbar radiculopathy Apply topically 30 g 6 3 Active diclofenac sodium (VOLTAREN) 1 % gelIndications:Left lumbar radiculopathy APPLY 2 G TOPICALLY 2 (TWO) TIMES DAILY. 100 g 11 3 Active famotidine (PEPCID) 20 mg tabletIndications:D yspepsia TOME FIORELLA TABLETA POR VIA ORAL DOS VECES AL DELMA CUANDO SEA NECESARIO 180 Tablet 3 4 Active tamsulosin (FLOMAX) 0.4 mg 24 hr capsuleIndications: Bilateral nephrolithiasis TAKE 1 CAPSULE BY MOUTH ONCE DAILY FOR KIDNEY STONE 90 Capsule 1 4 Active traMADoL (ULTRAM) 50 mg tabletIndications:L umbar disc disease Take 1 Tablet by mouth 2 (two) times daily as needed for pain 40 Tablet 4 Active blood sugar diagnostic (FREESTYLE LITE STRIPS) strips USE SHUKRI LO INDICADO DOS VECES AL DELMA 100 Each 11 4 Active tirzepatide (MOUNJARO) 2.5 mg/0.5 mL pnijIndications:Typ e 2 diabetes mellitus without complication, without long-term current use of insulin ([facility]),Hypoglyce romulo Inject 2.5 mg into the skin once a week 2 mL 3 4 Active metFORMIN (GLUCOPHAGE) 500 mg tabletIndications:T ype 2 diabetes mellitus without complication, without long-term current use of insulin ([facility]) TOME FIORELLA TABLETA POR VIA ORAL DOS VECES AL DELMA CON ALIMENTO 180 Tablet 3 4 Active Active Problems Problem Noted Date Diagnosed Date Other specified glaucoma 07/31/2023 Lumbar disc disease 04/25/2023 Peripheral neuropathic pain 01/04/2022 Seasonal allergies 01/04/2022 History of COVID-19 08/30/2020 06/13/2021 Body mass index (BMI) 50.0-59.9, adult ([facility]) 12/13/2020 Generalized anxiety disorder 04/06/2020 Papillary thyroid carcinoma ([facility]) 02/10/2020 Bilateral nephrolithiasis 11/15/2019 Overview (11/15/2019): 11/06/2019: CT of abd/pelvis at [facility]: IMPRESSION: Nonobstructing calculi within the kidneys bilaterally. No evidence of ureteral calculi or hydronephrosis. Incompletely distended urinary bladder with mild perivesicular fat stranding which may represent cystitis in the appropriate clinical settin Pelvic prolapse/mixed urinary incontinence 12/18 S/P JOHN (total abdominal hysterectomy) Dr. Giancarlo del toro 201411/06/2018 Major depressive disorder, r ecurrent episode with anxious distress ([facility]) 06/18/2018 Sciatica of right side, [facility] ED 03/17/2017 0 03/22/2017 Overview (03/22/2017): Result type: Discharge/Transfer Note Hospital Result date: March 17, 2017 14:02 Result status: Auth (Verified) Result title: Hospitalist Discharge Summary Performed by: hE Stewart MD on March 17, 2017 14:08 Verified by: Eh Stewart MD on March 17, 2017 14:08 Encounter info: [id number], [facility], Disch Obv, 03/16/2017 - 03/17/2017 Hospitalist Discharge Summary Patient: RUEL DONATO Age: 46 years Sex: Female : 1970 Associated Diagnoses: None Author: Eh Stewart MD Discharge Information Admission Date: 03/16/2017 Discharge Date 03/17/2017 Primary Care Provider Faith Rodriguez Principal Discharge Diagnosis Acute chest pain. Medications (Selected) Prescriptions Prescribed Dilaudid 2 mg oral tablet: 1 tablet = 2 mg, By Mouth, Every 4 hours, PRN for pain, for 5 days, # 30 tablet, 0 Refills, Acute 03/22/17 13:31:54, 03/17/17 13:31:54, Tablet omeprazole 20 mg oral delayed release tablet: 1 tablet = 20 mg, By Mouth, Daily, # 30 tablet, 0 Refills, Maintenance, 03/17/17 13:33:01 predniSONE 10 mg oral tablet: See Instructions, 4 tab po daily for 4 days, then 3 tab po daily for 3 days and then 2 tab po daily for 2 days and then 1 tab po daily for one day, # 30 tablet, 0 Refills, Acute 03/27/17 13:32:00, 03/17/17 13:31:32 Documented Medications Documented acetaminophen 325 mg oral tablet: 650 mg, By Mouth, Every 4 hours, PRN, Temperature Greater than 100.5, Refills 0, Maintenance, Headache Pain , Mild, 06/05/16 18:11:06 aspirin 81 mg oral tablet: 1 tablet = 81 mg, By Mouth, Daily, 0 Refills, Maintenance levothyroxine 0.05 mg oral tablet: 1 tablet = 50 mcg, By Mouth, Daily, 0 Refills, Maintenance metFORMIN 500 mg oral tablet: 1 tablet = 500 mg, By Mouth, Daily, # 180 tablet, 0 Refills, Maintenance, 06/04/16 13:41:05, Tablet. Medications Started dilaudid, prednisone Medications Discontinued none Doses Changed none PCP Follow-up/Heads Up MRI L spine and PMR referral Hospital Course 45-year-old female with a PMH of TOF s/p repair, DM2, hypothyroidism, and obesity who p/w CP, reproducible and have resolved. trop no acute. EKG with changes but previous EKG has same changes and stress test Jun 2016--no acute. d dimer <0.5 Low back pain, likely sciatica --Pain radiates down R leg, description typical of sciatica. has bbeen on steroids by Rene; better relief with dilaudid. no numbness, tingling, weakness, or incontinence. she was counseled abt warning s/s of cord compression and was asked to come to ED in case of these. PCP f/u for MRI and PMR referral d/w pt and her son. I have given her prescription of prolonged steroid taper and dilaudid PRN. ambulating MassPAT checked and pt given less than 5-7 days supply of narcotics after explaining side effects Mild leukocytosis-Likely 2/2 Prednisone use Today feels better and wants to go home. Having stable vitals. CTA BL, S1, S2 no GMR.Abd SOft, NT, BS+ve, AAO3. no pedal edema Discharge Plan Diet/Activity/Patient Education/Follow Up Patient was given the following educational materials: Hydromorphone Hydrochloride Oral tablet, Diet-Cardiac (CUSTOM), Activity-Increase as Tolerated (CUSTOM), BACK AND NECK PAIN, General, BACK CARE TIPS, BACK EXERCISES, Lumbar, Measuring Your Pain, Medication for Pain, Pain Management, CHEST PAIN, Uncertain Cause. Follow Up with: Please follow up with your appeals analyst in one wk; Faith Mesa Within 1 week for the follow up up discussion regarding referral to Physical medicine and rehab and MRI of back. Discharge Disposition Discharge: home. Discharge Condition: good, compared to admission improved. 30 minutes spent on discharge JONATAN (obstructive sleep apnea) 01/11/2017 Overview (01/11/2017): Result type: Polysomnogram Study Result date: March 25, 2013 10:17 Result status: Auth (Verified) Result title: Polysomnogram Performed by: Megan Lopes MD on March 25, 2013 10:17 Verified by: Megan Lopes MD on March 26, 2013 17:34 Encounter info: [id number], [facility], One Time OP, 03/19/2013 - 03/19/2013 Contributor system: [employer] * Final Report * Polysomnogram (Verified) PRELIMINARY REPORT UNLESS MANUALLY/ELECTRONICALLY SIGNED [facility] SLEEP PROGRAM [facility] Accredited by the [employer] POLYSOMNOGRAM REPORT Referring Provider: Murtaza Silva Date of Service: 03/19/2013 Order ID: [id number] INTRODUCTION: This 42 year-old female is referred with history of JONATAN. The sleep questionnaire noted excessive sleepiness, difficulty sleeping and waking frequently at night, and heartburn at night.The height is 62 inches. The weight is 235.1 lbs. The BMI is 43.2. MEDICATIONS: synthroid, imitrex, ergo. DESCRIPTION: This overnight polysomnogram was done utilizing a [employer] polysomnograph machine. Four channels of EEG for sleep scoring, 2 channels for electrooculogram, left and right respectively, 1 for chin EMG, 2 channels for left and right anterior tibialis EMG, respectively, 1 for EKG, 1 for combined nasal and airflow monitoring, 1 for nasal pressure transducer, 1 for intercostal EMG, 1 channel for thoracic strain gauge, 1 for abdominal strain gauge, 1 for end-tidal CO2 monitoring and oximetry on the last channel to monitor arterial oxygen saturation. The paper speed was set to 10 mm/sec; the low linear filter setting was 0.3Hz; high linear 35Hz for the EEG channels and appropriate bandwidths were set for the other channels. Sleep was scored by 30-second epochs according to the AASM Manual for the Scoring of Sleep and Associated Events: Rules, Terminology, and Technical Specifications v. 2.0, 2012. SLEEP ARCHITECTURE: Lights were turned out at 10:48:15 PM. The total recording time was 420.9 minutes with a total sleep time of 345.5 minutes. The sleep efficiency was 82.1%. The sleep maintenance was 87.1%. The sleep latency was 24.2 minutes. The REM latency was 100.0 minutes. Sleep architecture revealed 38.9% of total sleep time in Stage 1, 32.9% in Stage 2, 19.5% in Stage 3, and 8.7% in REM sleep. POSITION: The patient spent 345.5 minutes of sleep time in the supine position with 30.0 minutes of supine REM. RESPIRATORY MEASURES: There were 0 obstructive apneas, 0 mixed apneas, 0 central apneas, and 57 hypopneas, the longest of which was 51.7 seconds. The apneas-hypopnea index was 9.9 per hour. The REM AHI was 36.0 per hour and the NREM AHI was 7.4 per hour. The supine AHI is 9.9 per hour. The number of arousals was 53 for an arousal index of 9.2. Snoring was mild to moderate. Bruxism: Negative. The average arterial saturation during wakefulness was 97.0% and during sleep was 95.0%. The lowest arterial oxygen saturation during sleep was 78.9%. The number of minutes with SaO2 less than 89% was 3.5 minutes. END-TIDAL CO2: The maximum ETCO2 during wakefulness is 50.6 Torr with an average of 41.6 Torr. The max ETCO2 during sleep was 50.0 Torr with an average of 43.6 Torr. EKG: Sinus rhythm with an average heart rate of 59.8, range 50.9-82.1 bpm. Arrhythmia: None EEG: The waking background was 9 Hz. LIMB MOVEMENTS: There were 0 periodic limb movements with 0 PLMs associated with arousals for a PLM arousal index of 0.0 per hour. PATIENT? S ASSESSMENT OF NIGHT: Typical . INTERPRETATION: Sleep architecture and staging was remarkable for very fragmented sleep related mostly to respiratory events. There were some periods of relatively stable breathing with snoring and baseline oxygen saturations around 94%. There were intermittent hypopneas in NREM with some mild desaturations and arousals. There were other times were there were respiratory related arousals that did not meet criteria for hypopneas. There was an increase in events in REM sleep with some desaturations to as low as 78%. ETCO2 was mostly in the mid 40s. DIAGNOSTIC CLASSIFICATION: AXIS A: 1. Obstructive sleep apnea, moderate, REM dominant (327.23). AXIS B: 1. Polysomnogram. AXIS C: 1. Obesity, HTN and hypothyroidism. RECOMMENDATIONS: 1. Patient should return for CPAP titration. 2. Patient should sleep in non-supine position. A device such as Zzoma or Rematee could be considered. 3. Patient should avoid alcohol and sedative containing medications which may worsen sleep apnea. 4. Weight loss is recommended since significant weight loss of at least 10% of total body weight can lead to improvement of obstructive sleep apnea. 5. If the patient has symptoms of restless legs as suggested by the sleep questionnaire, a ferritin level should be checked to ensure that it is above 50. 6. The patient should be counseled to not drive if feeling drowsy. 7. For full evaluation and help with management, the patient can be referred to sleep clinic at [facility]. Dictated by: Megan Lopes M.D. Signing Clinician: Megan Lopes M.D. Dictated: 03/25/2013 10:17:35 Transcribed: 03/25/2013 22:08:29 Transcribed by: LNAE DocID: [id number] CC:Lupillo Gibson M.D. 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 Love 01/31/2016 S/P denise 01/31/2016 History of endoscopy 10/2013: mild gastritis Overview (01/31/2016): Result type: Gastroenterology Note Office Result date: 03 October 2013 13:14 Result status: Auth (Verified) Result title: Results Letter Performed by: Antolin Venegas MD on 03 October 2013 13:15 Verified by: Antolin Venegas MD on 03 October 2013 13:21 Encounter info: [id number], [facility], Lasha Victor [facility], 09/29/2013 - 09/29/2013 Results Letter Patient: MARITZA LANDEROS Age: 42 years Sex: Female : 1970 Associated Diagnoses: None Author: Antolin Venegas MD 10/03/2013 Dear Ms. Donato : This is a letter to keep you inform on your recent test 1. Small bowel, biopsy: - Active duodenitis with surface erosion consistent with a peptic etiology. 2. Stomach, biopsy: - Gastric antral and fundic-body mucosa with chronic, mildly active gastritis. - Organisms morphologically consistent with H. pylori present. 3. Distal esophagus, biopsy: - Esophageal squamous and gastric cardiac mucosa with no pathologic changes. - No intestinal metaplasia (Jane's mucosa) identified. In summary thre is an infecction in your stomach for H Pylori. H pylori is a bacteria that infects the stomach that can cause discomfort, inflammation and ulcerations. We will give you a 2 week treatment course that will eradicate that infection. There is inflammation in your stomach and duodenum. Antolin Venegas MD [facility] Gastroenterology [address] [place] [address], [address] [facility], [address] Non morbid obesity due to excess calories 2015 Resolved Problems Problem Noted Date Diagnosed Date Resolved Date 2018 novel coronavirus disea se (COVID-19) 08/30/2020 09/12/2020 06/13/2021 Encounters Date Type Department Care Team Description 10/16/2024 Interim Notes [id number] [place] [address] Qamar Moralez MA from Last 3 Months Immunizations Name Administration Dates Next Due Flu, Cell Culture based, Pre servative Free, 6m+, Flucelvax 09/29/2018 Flu, Preservative Free 07/05/2022,2019,06/11/2019,07/03,07/03/2013 INFLUENZA, SEASONAL, INJECTABLE 06/05/2016 Influenza (FLUBLOK),recombinant,injectable,prese rvative Free 06/16/2024 PNEUMOCOCCAL CONJUGATE PCV 2 0 (Prevnar) 01/08/2024 PNEUMOCOCCAL POLYSACCHARIDE PPV23 05/08/2020 TDAP 06/16/2024 ZOSTER VACCINE, RECOMBINANT (SHINGRIX) 3,07/11/2022 Social History Tobacco Use Types Packs/Day Years Used Date Smoking Tobacco: Never Smokeless Tobacco: Never Tobacco Cessation:Counseling Given: Not Answered Alcohol Use Standard Drinks/Week Comments No 0 [...] Orientation Straight 06/11/2017 5: 49 PM PDT Last Filed Vital Signs Vital Sign [place] Time Taken Comments Blood Pressure 116/72 07/29/2024 1:31 PM EST Pulse 72 07/29/2024 1:31 PM EST Temperature 36.7 ??C (98 ??F) 06/16/2024 2:02 PM EDT Respiratory Rate 16 06/16/2024 2:02 PM EDT Oxygen Saturation 96% 06/16/2024 2:02 PM EDT Inhaled Oxygen Concentration - - Weight 105.3 kg (232 lb 3.2 oz) 07/29/2024 1:31 PM EST Height 152.4 cm (5') 06/16/2024 2:02 PM EDT Body Mass Index 45.35 06/16/2024 2:02 PM EDT Plan of Treatment Upcoming Encounters Date Type Department Care Team (Late st Contact Info) Description 11/18/2024 9:20 AM EDT Office Visit [facility] [address] [place] [address] Magdalena Epps PA-C [address] [place], [place] [id number] Health Maintenance Due Date Last Done Comments Dental Examination 1970 HPV Screening 1970 Pap + HPV 1970 Imm-Hepatitis B (1 of 3 - 19+ 3-dose series) 1989 CT Colonography 12/22/2015 FIT/gFOBT 12/22/2015 Fecal DNA 12/22/2015 Flexible Sigmoidoscopy 12/22/2015 Annual Preventive Care Visit 10/10/2023 10/10/2022, 09/29/2021, 05/06/2020, Additional history exists Depression Monitoring 07/09/2024 04/08/2024 , 01/08/2024, 10/09/2023, Additional history exists Alcohol and Drug Screen 09/02/2024 01/08/20 24, 10/09/2023, 04/24/2023, Additional history exists Retinopathy Screening 10/28/2024 10/28/2023 , 04/29/2023, 06/12/2022, Additional history exists Breast Cancer Screening (Mammogram) 11/17/2024 11/18/2023, 11/12/2022, 11/06/2021, Additional history exists Diabetes HbA1c 12/15/2024 06/16/2024, 07/04, 07/31/2023, Additional history exists [id number] (3 - 2024-25 season) 2024 04/21/2021, 03/31/2021 Postponed from 05/03/2024 (Patient postponement) Tobacco Screening 04/08/2025 04/08/2024, 11/06/2023 Diabetes Foot Exam 05/01/2025 05/01/2024, 1 10/01/2022, 01/16/2023, Additional history exists Diabetes Microalbumin (w/Creatinine) 06/16/2025 06/16/2024, 01/22/2023, 06/13/2021, Additional history exists Lipid Screening 06/16/2025 06/16/2024, 07/04, 07/31/2023, Additional history exists Serum Creatinine 06/16/2025 06/16/2024, 04/2024, 07/31/2023, Additional history exists Hypertension Screening (#1) 07/29/2025 Colonoscopy 09/28/2031 09/28/2021 Colorectal Cancer Screening 09/28/2031 Imm-DTaP/Tdap/Td (2 - Td or Tdap) 06/16/2034 06/16/2024 HIV Screening Completed 07/08/2020, 07/08/2020 Hepatitis C Screening Completed 07/08/2020 Imm-Zoster, Recombinant Completed 10/10/2022, 07/11 Imm-Pneumococcal Completed 01/08/2024, 05/08/2020 Imm-Influenza Completed 06/16/2024, 10/2021, 05/08/2020, Additional history exists Cervical Ablation/Cold-Knife Conization Discontinued Cervical Cancer Screening Discontinued Cervical Cryotherapy Discontinued Colposcopy Discontinued Endometrial Biopsy Discontinued Excision/Leep Discontinued HPV Genotyping Discontinued Pap Smear Discontinued Vaginal Pap Discontinued Vulvoscopy Discontinued Procedures Procedure Name Priority Date/Time Associated Diagnosis Comments COMPREHENSIVE METABOLIC PANEL Routine 06/16/2024 2:33 PM EDT Hypothyroidism (acquired) Non morbid obesity due to excess calories Type 2 diabetes mellitus without complication, without long-term current use of insulin ([facility]) Lumbar disc disease Routine general medical examination at a health care facility [place] and fatigue LIPID PANEL Routine 06/16/2024 2:33 PM EDT Hypothyroidism (acquired) Non morbid obesity due to excess calories Type 2 diabetes mellitus without complication, without long-term current use of insulin ([facility]) Lumbar disc disease Routine general medical examination at a health care facility [place] and fatigue MICROALBUMIN/CREATININ E RATIO, URINE, RANDOM Routine 06/16/2024 2:33 PM EDT Hypothyroidism (acquired) Non morbid obesity due to excess calories Type 2 diabetes mellitus without complication, without long-term current use of insulin ([facility]) Lumbar disc disease Routine general medical examination at a health care facility [place] and fatigue HEMOGLOBIN GLYCOSYLATED A1C Routine 06/16/2024 2:33 PM EDT Hypothyroidism (acquired) Non morbid obesity due to excess calories Type 2 diabetes mellitus without complication, without long-term current use of insulin ([facility]) Lumbar disc disease Routine general medical examination at a [facility] care facility [place] and fatigue HISTORIC MAMMOGRAM 11/18/2023 3: 00 AM EDT EYE EXAM 10/28/2023 3:00 AM EST HISTORIC COLONOSCOPY 09/28/2021 3:00 AM EST ANTIBODY HIV-1&HIV-2 SINGLE RESULT Routine 07/08/2020 1:40 PM EST Type 2 diabetes mellitus without complication, without long-term current use of insulin ([facility]) Non morbid obesity due to excess calories HEPATITIS A,B,C PANEL Routine 07/08/2020 1:40 PM EST Type 2 diabetes mellitus without complication, without long-term current use of insulin ([facility]) Non morbid obesity due to excess calories from Last 3 Months or Most Recently Relevant to Health Maintenance Results * MICROALBUMIN/CREATININE RATIO, URINE, RANDOM (06/16/2024 2:33 PM EDT) CREATININE, RANDOM URINE 108 20 - 275 mg/dL [facility] MICROALBUMIN <0.2 mg/dL [facility] Comment: Reference Range Not established MICROALBUMIN/CREA TININE RATIO, RANDOM URINE NOTE <30 [facility] Comment: NOTE: The urine albumin value is less than 0.2 mg/dL therefore we are unable to calculate excretion and/or creatinine ratio. The ADA defines abnormalities in albumin excretion as follows: Albuminuria Category ?Result (mg/g creatinine) Normal to Mildly increased ?? <30 Moderately increased ? 30-299 Severely increased ? > OR = 300 The ADA recommends that at least two of three specimens collected within a 3-6 month period be abnormal before considering a patient to be within a diagnostic category. Urine Urine specimen / Unknown 06/16/2024 2:33 PM EDT 06/16/2024 2:34 PM EDT Narrative [facility] - 06/19/2024 2:17 PM EDT FASTING:NO us Jessie Mesa PA-C LAB - NO BLOOD DRAW Final Re sult Performing Organization Address [facility]/State/ZIP Co de Phone Number [facility] [address] [place] [id number], [employer] [address] [address] * (ABNORMAL) HEMOGLOBIN GLYCOSYLATED A1C (06/16/2024 2:33 PM EDT) HEMOGLOBIN A1C 5.8(H) <5.7 % of total Hgb [employer] Comment: For someone without known diabetes, a hemoglobin A1c value between 5.7% and 6.4% is consistent with prediabetes and should be confirmed with a follow-up test. For someone with known diabetes, a value <7% indicates that their diabetes is well controlled. A1c targets should be individualized based on duration of diabetes, age, comorbid conditions, and other considerations. This assay result is consistent with an increased risk of diabetes. Currently, no consensus exists regarding use of hemoglobin A1c for diagnosis of diabetes for children. Blood Blood / Unknown 06/16/2024 2 :33 PM EDT 06/16/2024 2:34 PM EDT [employer] - 06/19/2024 2:17 PM EDT FASTING:NO us Jessie Mesa PA-C LAB - BLOOD DRAW Edited Resu lt - Final Performing Organization Address City/[facility]/ZIP Co de Phone Number [facility] [address] [address], [employer] [address] [address] * (ABNORMAL) LIPID PANEL (06/16/2024 2:33 PM EDT) Pathologist [facility] CHOLESTEROL, TOTAL 144 <200 mg/dL [facility] HDL CHOLESTEROL 56 > OR = 50 mg/dL [facility] TRIGLYCERIDES 152(H) <150 mg/dL [facility] LDL-CHOLESTEROL 65 99 mg/dL (calc) [facility] Comment: Reference range: <100 Desirable range <100 mg/dL for primary prevention; ?? <70 mg/dL for patients with CHD or diabetic patients with > or = 2 CHD risk factors. LDL-C is now calculated using the Duane calculation, which is a validated novel method providing better accuracy than the Friedewald equation in the estimation of LDL-C. Luis Alberto SS et al. MARIA FERNANDA. 2013;310(19): 0064-9980 (http://education.StreetHub/faq/VRH081) CHOL/HDLC RATIO 2.6 <5.0 (calc) [employer] NON-HDL CHOLESTEROL 88 <130 mg/dL (calc) [employer] [facility] Comment: For patients with diabetes plus 1 major ASCVD risk factor, treating to a non-HDL-C goal of <100 mg/dL (LDL-C of <70 mg/dL) is considered a therapeutic option. Blood Blood / Unknown 06/16/2024 2 :33 PM EDT 06/16/2024 2:34 PM EDT Narrative [facility] - 06/19/2024 2:17 PM EDT FASTING:NO us Jessie Mesa PA-C LAB - BLOOD DRAW Final Resul t Performing Organization Address City/[facility]/ZIP Co de Phone Number [facility] [address] [address], [facility] [address] [address] * COMPREHENSIVE METABOLIC PANEL (06/16/2024 2:33 PM EDT) GLUCOSE 89 65 - 139 mg/dL [facility] Comment: ?Non-fasting reference interval UREA NITROGEN (BUN) 16 7 - 25 mg/dL [facility] CREATININE (blood) 0.74 0.50 - 1.03 mg/dL [facility] EGFR 97 > OR = 60 mL/min/1. 73m2 [facility] BUN/CREATININE RATIO SEE NOTE: [facility] Comment: ?? Not Reported: BUN and Creatinine are within ?? reference range. ? SODIUM 141 135 - 146 mmol/L [facility] POTASSIUM 4.2 3.5 - 5.3 mmol/L [facility] CHLORIDE 105 98 - 110 mmol/L [facility] CARBON DIOXIDE 29 20 - 32 mmol/L [facility] CALCIUM 9.0 8.6 - 10.4 mg/dL [facility] PROTEIN, TOTAL 7.0 6.1 - 8.1 g/dL [facility] ALBUMIN 3.8 3.6 - 5.1 g/dL [facility] GLOBULIN 3.2 1.9 - 3.7 g/dL (calc) [facility] ALBUMIN/GLOBULI N RATIO 1.2 1.0 - 2.5 (calc) [facility] BILIRUBIN, TOTAL 0.4 0.2 - 1.2 mg/dL [facility] ALKALINE PHOSPHATASE 76 37 - 153 U/L [facility] AST 19 10 - 35 U/L [facility] ALT 24 6 - 29 U/L [facility] Blood Blood / Unknown 06/16/2024 2 :33 PM EDT 06/16/2024 2:34 PM EDT Narrative [facility] - 06/19/2024 2:17 PM EDT FASTING:NO us Jessie Mesa PA-C LAB - BLOOD DRAW Edited Resu lt - Final [facility] [address] [address], [facility] [address] [place] [address] * HISTORIC MAMMOGRAM (11/18/2023 3:00 AM EDT) 11/18/2023 3:00 AM EDT Jessie Mesa PA-C IMG MAMMO Final Result * EYE EXAM (10/28/2023 3:00 AM EST) 10/28/2023 3:00 AM EST Jessie Mesa PA-C OTHER Edited Resul t - Final * HISTORIC COLONOSCOPY (09/28/2021 3:00 AM EST) 09/28/2021 3:00 AM EST Jessie Mesa PA-C PROCEDURES Final Result * (ABNORMAL) HEPATITIS A,B,C PANEL (07/08/2020 1:40 PM EST) HEPATITIS B SURFACE ANTIBODY NEGATIVE NEGATIVE [facility] HEPATITIS B SURFACE ANTIGEN NEGATIVE NEGATIVE [facility] Comment: Over the counter supplements containing high doses of biotin may interfere with this assay. ??If interference is suspected, patients shoud be retested after refraining from biotin supplements for 72 hours. HEPATITIS C VIRUS DIAGNOSTIC NEGATIVE NEGATIVE [facility] HEPATITIS A ANTIBODY TOTAL POSITIVE(A) NEGATIVE [facility] Comment: Over the counter supplements containing high doses of biotin may interfere with this assay. ??If interference is suspected, patients shoud be retested after refraining from biotin supplements for 72 hours. HEPATITIS B CORE ANTIBODY NEGATIVE NEGATIVE [facility] Blood Blood / Unknown 07/08/2020 1 :40 PM EST 07/08/2020 3:02 PM EST Narrative [facility] - 07/08/2020 7:07 PM EST [email or web address], [place] [address] Chemical Research Worker - Danae Contreras MD PT ID [id number] ORD# [id number] Jessie Mesa PA-C LAB - BLOOD DRAW Edited Resu lt - Final Performing Organization Address City/[facility]/ZIP Co de Phone Number [facility] [employer] [address], [place] [phone] * HIV-1 & HIV-2 ANTIBODIES (07/08/2020 1:40 PM EST) [facility] HIV 1 AND 2 ANTIBODY SCREEN NEGATIVE NEGATIVE [facility] Comment: This assay is a 4th generation assay allowing for earlier detection of HIV infection by detecting the presence of the HIV-1 p24 antigen as well as the traditional antibodies to HIV type 1 (including group O) and type 2. ??Use of a 4th generation assay is the current CDC recommendation for HIV screening. Blood Blood / Unknown 07/08/2020 1 :40 PM EST 07/08/2020 3:02 PM EST Narrative [facility] - 07/08/2020 7:36 PM EST [email or web address], [place] [address] Chemical Research Worker - Danae Contreras MD PT ID [id number] ORD# [id number] Jessie Mesa PA-C LAB - BLOOD DRAW Final Resul t Performing Organization Address [facility] Co de Phone Number [address] [address], [place] [phone] from Last 3 Months or Most Recently Relevant to Health Maintenance Insurance [facility] [address] [employer] Care Teams Log Processor Operator Relationship Specialty Start Date End Date Jessie Mesa PA-C [address] [place] [id number] PCP - General Internal Medicine 12/02/15
== END 2024-11-05 10:33 | disposition home or self-care (01) ==
PROVIDERS: PCP Physician Assistant; Visit Provider Dietitian, Registered
DX: E11.9 Type 2 diabetes mellitus without complications (principal)

== ENCOUNTER → 2024-11-05 09:52 | Outpatient (BNVA) | payer MEDICAID, SELFPAY | PROVIDERS: PCP Physician Assistant; Visit Provider Dietitian, Registered | DX: E11.9 Type 2 diabetes mellitus without complications (principal); E66.9 Obesity, unspecified; Z71.3 Dietary counseling and surveillance; Z68.41 Body mass index [BMI] 40.0-44.9, adult | CPT/HCPCS: 97803 ==

== ENCOUNTER 2025-01-18 09:53 | Outpatient (AMB) | payer MEDICAID, SELFPAY ==
--- NOTE | 2025-01-18 09:55 | MHC.OFFVIS ---
Vital Signs 01/18/25 09:57 Height 5 ft 2 in Weight 235 lb 3.732 oz BMI 43.0 BP 116/70 Blood Pressure Location Rt brachial Position Sitting Pulse 70 Pulse Source Pulse Oximeter Pulse Oximetry (%) 95 Oxygen Delivery Method Room Air Intake Visit Reasons: Thyroid Cancer Intake Note: Patient present today for thyroid cancer office visit. Account Specialist Required: Yes Account Specialist Language: Stenciling Machine Tender Services: Account Specialist Present Account Specialist Name: Angely [id number] Information Interpreted: non-clinical & clinical Accompanied by: Self / Same As Patient Allergies clarithromycin Allergy (Unknown, Verified 01/18/25 09:58) Unknown liraglutide Allergy (Unknown, Verified 01/18/25 09:58) redness and itching No Known Allergies [No Known Allergies*] Allergy (Verified 01/18/25 09:58) Medication List - Last Reconciled 01/18/25 by Melisa Phan MD albuterol sulfate 90 mcg/actuation (Proventil HFA) 2 puffs inhalation Q4H PRN alcohol swabs (Alcohol Prep Pads) 1 pad topical .3 times a day 30 days amoxicillin 875 mg PO BID cetirizine 10 mg PO DAILY PRN cholecalciferol (vitamin D3) 50 mcg PO DAILY famotidine 20 mg PO BID PRN FreeStyle Lite Strips (blood sugar diagnostic) 1 strip miscellaneous TID 30 days NS lancets (FreeStyle Lancets) 3 times a day levothyroxine 150 mcg PO DAILY loratadine 10 mg PO DAILY montelukast 10 mg PO BEDTIME tamsulosin 0.4 mg PO DAILY timolol maleate 0.5% 1 drp ophthalmic (eye) QAM tirzepatide (Mounjaro) 2.5 mg subcut QWEEK HPI Comments Details: 54 year female today for follow-up visit, Today for follow-up for papillary thyroid cancer status post total thyroidectomy 04/13/[address] Bassam Morejon at [facility], found to have multifocal PTC with 1 cm classic variant of PTC, in the left lobe, to more foci within 0.1 mm of the anterior margin, with extranodal extension 4/8 positive lymph nodes with largest metastatic deposit of 0.3 cm, AJCC stage I, pT1a, N1a MX, RAIN initial intermediate risk of recurrence. Currently RAIN indeterminate response to therapy Was previously seeing Dr. Skaggs, then saw Dr. Landers, last visit 07/20/2024. HPI of PTC in detail Had past medical history of hypothyroidism and thyroid nodules 02/04/2020: FNA of the left thyroid nodule consistent with PTC [place] category 6 04/13/2020: Status post total thyroidectomy by Dr. Bassam Morejon at [facility] Histology was consistent with classic variant papillary thyroid cancer, left lobe, size 1.0 x 0.9 x 0.6 cm. No evidence of extrathyroidal extension. No angioinvasion. No lymphatic invasion. Two more extent within 0.1 mm of the anterior margin. Patient had 4 positive lymph nodes from 8 examined. Largest metastatic deposits 0.3 cm, extranodal extension present. AJCC stage I (PT1a, N1a, MX) . RAIN initial intermediate risk of recurrence based on size of lymph node 07/13/20: Status post radioactive iodine for remnant ablation She had Thyrogen stimulated remnant ablation with 50 mCi of iodine 131 on 07/13/2020, post ablation scan Showed residual radioiodine activity within the neck consistent with function in thyroid tissue or local disease. No evidence of avid iodine distant metastatic lesions 07/13/2020: TSH 98.18, TG 1.6, TG antibody less than 1 05/03/2022: Ultrasound neck showed normal looking lymph nodes 03/29/23 : Saw Dr. Guajardo at [facility] and in office US neck did not show any signs of recurrence , Labs from [facility] showed TSH of 3.14, with free T4 of 1.25, TG 0.27, TG antibody less than 0.4 Dr. Guajardo's assessment: Interval history She is currently on levothyroxine 150 mcg daily. She is 100% adherent she has a good method of administration. She denies cold or heat intolerance, , diarrhea, positive constipation, imsomnia, fatigue,gained 10 lbs sine Jul 2024 Some trouble swallowing since before thyroid surgery which she says is persistent No voice hoarseness Family History: She denies family history of thyroid cancer. No history of head and neck radiation Physical exam General: sitting comfortably in no acute distress HEENT: normocephalic/atraumatic, Neck: supple, symmetrical Cardiac: normal heart sounds Pulm: normal breath sounds B/L, no added breath sounds Abd: not distended, no tenderness Extremities: no edema, no signs of myxedema Laboratory Tests Laboratory Tests 01/30/20 04/21/20 07/13/20 08:20 12:30 07:15 TSH 98.18 H Free T4 1.15 1.44 Thyroglobulin 1.6 H Thyroglobulin Antibody <1 <1 <1 07/22/20 10/24/20 03/23/21 07:51 10:35 11:20 TSH 8.24 H 0.21 L 0.14 L Free T4 1.36 1.54 Thyroglobulin 0.5 H 0.2 H 0.2 H Thyroglobulin Antibody <1 <1 <1 03/08/22 06/28/22 11/01/22 07:53 08:35 14:36 TSH 0.05 L 0.46 1.71 Free T4 1.21 1.33 1.41 Thyroglobulin 0.3 H 0.1 L Thyroglobulin Antibody <1 08/14/23 02/11/24 07/20/24 10:56 12:12 11:27 TSH 3.59 0.75 2.65 Free T4 1.17 1.26 1.28 Thyroglobulin 0.2 H Thyroglobulin Antibody <1 07/20/24 Unknown TSH Free T4 Thyroglobulin 0.2 H Thyroglobulin Antibody <1 EXAMINATION: 05/13/22 US SOFT TISSUE HEAD/NECK CLINICAL INFORMATION: Nontoxic multinodular goiter. Thyroidectomy in 04/2020 per the patient. COMPARISON: Thyroid ultrasound 01/27/2020. TECHNIQUE: Linear transducer harrison-scale and color Doppler examination with attention to the region of the thyroid bed and surrounding tissue. FINDINGS: THYROIDECTOMY BED: No residual thyroid tissue is appreciated within the thyroidectomy bed. On the right side level 3 there is a 1.0 x 0.3 x 0.6 cm lymph node without definite fatty cleft, however no cortical thickening or lobulation is appreciated. On the left side level 3 there is a normal-appearing lymph node measuring 2.0 x 0.6 x 1.4 cm in size and has a normal fatty hilum/cleft and no evidence of cortical thickening. US/US thyroid IMPRESSION: No residual thyroid tissue/mass identified within the thyroidectomy bed. ? Bilateral level 3 lymph nodes without evidence of cortical thickening or lobulation. [facility] Medical History Diabetes type 2, controlled Diabetic nephropathy associated with type 2 diabetes mellitus Post-surgical hypothyroidism Primary thyroid cancer Surgical History History of total thyroidectomy History of total abdominal hysterectomy History of carpal tunnel release of both wrists Family History Father CVD (cardiovascular disease) Mother CVD (cardiovascular disease) Social History Household Members: None Alcohol intake: never Patient Tobacco Use Status: Never used Tobacco Physical Exam Vital Signs: BMI result Body Mass Index 43.0 Assessment & Plan Assessment & Plan (1) History of thyroid cancer: Code(s): Z85.850 - Personal history of malignant neoplasm of thyroid Category: Medical Plan: 54 year female today for follow-up visit, Today for follow-up for papillary thyroid cancer status post total thyroidectomy 04/13/[address] Bassam Morejon at [facility], found to have multifocal PTC with 1 cm classic variant of PTC, in the left lobe, to more foci within 0.1 mm of the anterior margin, with extranodal extension 4/8 positive lymph nodes with largest metastatic deposit of 0.3 cm, AJCC stage I, pT1a, N1a MX, RAIN initial intermediate risk of recurrence. Currently RAIN indeterminate response to therapy, given that her non stimulated TG levels have been a little over 0.2. However very close to excellent response to therapy. The plan was to keep her TSH between 0.1-0.5 at least up until March 2025 and then liberalize it to 0.5-2. At this point she has not had any recent labs I will repeat her labs in based on her TG levels we will decide what her TSH goal should be. We will also repeat an ultrasound of the neck. Plan: -ordered ultrasound of the neck to be done now, I had asked her to come back in 8 weeks for follow up to discuss results but patient says she is going to [place] for the next 3 months, follow up in 3 months -ordered TSH, free T4, TG and TG antibodies to be done today, we will reach out with the results -continue levothyroxine 150 mcg daily -follow up in 3 months (2) Post-surgical hypothyroidism: Code(s): E89.0 - Postprocedural hypothyroidism Category: Medical Plan: Currently RAIN indeterminate response to therapy, given that her non stimulated TG levels have been a little over 0.2. However very close to excellent response to therapy. The plan was to keep her TSH between 0.1-0.5 at least up until March 2025 and then liberalize it to 0.5-2. At this point she has not had any recent labs I will repeat her labs in based on her TG levels we will decide what her TSH goal should be. -ordered TSH, free T4, TG and TG antibodies to be done today, we will reach out with the results -continue levothyroxine 150 mcg daily Plan I spent 30 minutes in reviewing the record, seeing the patient and documenting in the medical record. Orders: Orders Thyroid Stimulating Hormone Today E89.0 - Postprocedural hypothyroidism, Z85.850 - Personal history of malignant neoplasm of thyroid Thyroglobulin Today E89.0 - Postprocedural hypothyroidism, Z85.850 - Personal history of malignant neoplasm of thyroid Thyroglobulin Tumor Marker Today E89.0 - Postprocedural hypothyroidism, Z85.850 - Personal history of malignant neoplasm of thyroid Thyroglobulin Antibodies Today E89.0 - Postprocedural hypothyroidism, Z85.850 - Personal history of malignant neoplasm of thyroid US soft tiss head and/or neck Today E89.0 - Postprocedural hypothyroidism, Z85.850 - Personal history of malignant neoplasm of thyroid Free T4 (Free Thyroxine) Today E89.0 - Postprocedural hypothyroidism, Z85.850 - Personal history of malignant neoplasm of thyroid Coding Level of Care Code Est Pt Level 4 (42247) Complex EM visit Add On G2211 Diagnoses History of thyroid cancer Z85.850 Post-surgical hypothyroidism E89.0 Time Spent (min) 30
[2025-01-18 09:57] VITALS: BP 116/70; PULSE 70; O2SAT 95; BMI 43.0
--- OUTSIDE RECORDS SUMMARY | 2025-01-18 10:14 | XMS_ITS | Clinical Summary ---
Author Organization [facility] [employer] Address [address] [place] [address] Phone Care Team Providers Care Junior Account Manager Name Role Phone Jessie Mesa Primary Care Provider [phone] Allergies Active Allergy Reactions Criticality Noted Date Comments Clarithromycin 06/21/2021 Dupilumab Rash 02/27/2022 Levofloxacin Numbness,Swelling 03/19/2023 Liraglutide 06/21/2021 Medications glipiZIDE (GLUCOTROL XL) 2.5 mg 24 hr tablet Take 1 Tablet by mouth Active albuterol 2.5 mg /3 mL (0.083 %) nebulizer solution Take 1 Vial by nebulization every 4 hours as needed for Wheezing, Shortness of Breath or Cough. 024 Active fluticasone propionate (FLONASE) 50 mcg/actuation nasal spray 1 [place] by Nasal route daily. 024 Active esomeprazole (NexIUM) [address] capsule 024 Active diclofenac (VOLTAREN) 1 % topical gel Apply 2 g topically. 023 Active FREESTYLE LANCETS MISC Freestyle lite lancets, use bid dx E11.9 022 Active acetaminophen (TYLENOL 8 HOUR) 650 mg 8 hr tablet Take 650 mg by mouth as needed. 022 Active cholecalciferol (VITAMIN D-3) 50 mcg (2,000 unit) capsule Take 2,000 Int'l Units by mouth. 020 Active timolol (TIMOPTIC) 0.5 % ophthalmic solution 1 Drop 2 times daily. Active aspirin (ASPIR-81 ORAL) Take 81 mg by mouth three times a week. 019 Active levothyroxine (SYNTHROID, LEVOTHROID) 150 mcg tablet Take 1 tablet (150 mcg total) by mouth 1 (one) time each day before breakfast. Active tirzepatide (Mounjaro) 2.5 mg/0.5 mL injection Inject 0.5 mL (2.5 mg total) under the skin every 7 (seven) days. Active amoxicillin (AMOXIL) 500 mg capsule Take 4 capsules 30-60 minutes prior to dental procedures. 16 capsule 1 024 Active Ventolin HFA 90 mcg/actuation inhalerIndicati ons:Unspecified asthma with (acute) exacerbation INHALE 2 PUFFS INTO THE LUNGS EVERY 6 HOURS NEEDED FOR COUGH, WHEEZING OR SHORTNESS OF BREATH 18 each 1 024 Active azelastine (ASTELIN) 137 mcg (0.1 %) nasal sprayIndication s:Nasal congestion 2 SPRAYS BY EACH NARE ROUTE 2 TIMES DAILY. USE IN EACH NOSTRIL DIRECTED 90 mL 3 025 Active montelukast (SINGULAIR) 10 mg tabletIndicatio ns:Other allergic rhinitis,Unspec ified asthma with (acute) exacerbation TOME 1 TABLETA POR VIA ORAL TODOS LOS CEE AL ACOSTARSE 90 tablet 3 025 Active Advair HFA 230-21 mcg/actuation inhalerIndicati ons:Moderate persistent asthma without complication Inhale 2 puffs by mouth 2 (two) times a day. Rinse mouth with water after use to reduce aftertaste and incidence of candidiasis. Do not swallow. 36 g 4 025 2025 Active cetirizine (ZyrTEC) 10 mg tabletIndicatio ns:Nasal congestion,Othe r allergic rhinitis TOME 1 TABLETA POR VIA ORAL TODOS LOS CEE 90 tablet 3 025 Active fluticasone propion-salmete roL (Advair HFA) 230-21 mcg/actuation inhaler TOME DOS INHALACIONES POR VIA ORAL DOS VECES AL DELMA RINSE MOUTH AND THROAT AND SPIT AFTER USE 024 2024 Discontinued(F ormulary change) montelukast (SINGULAIR) 10 mg tablet Take 1 Tablet by mouth at bedtime. 024 2024 Discontinued cetirizine (ZyrTEC) 10 mg tablet 024 2024 Discontinued Active Problems Problem Noted Date Diagnosed Date Obstructive sleep apnea 12/18/2021 Overview (05/27/2024): [facility] Home sleep test 12/07/2021; weight 252; BMI [...] including hypertension and arrhythmias DM (diabetes mellitus) ([facility] V24, [facility] V28 ) 05/27/2021 Mild intermittent asthma, uncomplicated 05/27/20 21 [...] for her to be seen by pulmonary field service consultant. My suspicion is that the stress [...] any underlying arrhythmia. Thoracic aortic aneurysm (TAA) ([facility] V24) Overview (05/27/2024): Last Assessment & Plan: Future [...] Covid. It is difficult even with a interpreter for the deaf to try to sort out what her symptoms really are especially since when you have a conversation with her and with the historical interpreter she sits playing with her phone. 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 COVID-19 08/02/2020 Encounters Date Type Department Care Team Description 01/12/2025 Telephone Pulmonolgy [facility] [address] [place] [address] Jessie Kirby NP Accomodation verification 12/17/2024 10:30 AM EDT [facility] [address] [place] [address] Jessie Kirby NP Moderate persistent asthma without complication (Primary Dx); Obstructive sleep apnea; Primary hypertension; Glaucoma, unspecified glaucoma type, unspecified laterality; Tetralogy of Fallot; Morbid obesity (CMS/HCC V24, CMS/HCC V28) 11/18/2024 12:51 PM EDT - 11/18/2024 11:59 PM EDT Hospital Encounter [facility] [address] [place] [address] Encounter for screening mammogram for malignant neoplasm of breast Discharge Disposition: Home or Self Care from Last 3 Months Immunizations Name Administration Dates Next Due Influenza Quadravalent, MDCK , 0.5ml, preservative free (Flucelvax) 6mo and older 09/29/2018 Influenza Quadravalent, MDCK , 0.5ml, with preservative (Flucelvax) 6mo and older 05/08/2020,06/11/2019,07/03/2017,07/03 Influenza trivalent, with pr eservative (Fluzone; Afluria) 6mo and older 06/05/2016 Pfizer SARS-CoV-2 COVID-19, mRNA, LNP-S, preservative free 04/21/2021,03/31/2021 Pneumococcal polysaccharide 23 valent (Pneumovax 23) 2yo and older 05/08/2020 Surgical History Surgery Date Site/Laterality Comments CARDIAC SURGERY 1980 PROCEDURE: HISTORICAL HEART SURGERY(ASD,VSD,VALVES) OTHER SURGICAL HISTORY 2019 PROCEDURE: HISTORICAL SUBTOTAL THYROIDECTOMY CHOLECYSTECTOMY 2010 PROCEDURE: ME CHOLECYSTECTOMY HYSTERECTOMY 1998 PROCEDURE: HISTORICAL HYSTERECTOMY; COMMENT: No ovaries removed. SALPINGOOPHORECTOMY 2012 PROCEDURE: ME LAPAROSCOPY W/RMVL ADNEXAL STRUCTURES COLONOSCOPY 09/28/2021 PROCEDURE: HISTORICAL COLONOSCOPY; COMMENT: negative Medical History Medical History Date Comments Covid-19 08/2020 DX:COVID-19 Mild intermittent asthma, uncomplicated DX:Mild intermittent asthma, uncomplicated Thoracic aortic aneurysm (TA A) ([facility] V24) DX:Thoracic aortic aneurysm (TAA) (HCC) DM (diabetes mellitus) ([facility] V24, [facility] V28) DX:DM (diabetes mellitus) (H CC) Glaucoma DX:Glaucoma Hypothyroidism DX:Hypothyroidis m HTN (hypertension) DX:HTN (hyper tension) Dysphagia DX:Dysphagia Epigastric pain DX:Epigastric pa in Diabetes 1.5, managed as typ e 2 ([facility] V24, [facility] V28) DX:Diabetes 1.5, managed as type 2 ([facility]) Retained food in stomach DX:Tanisha ined food [...] = 0.6 oz pur e alcohol) Comments No Sex and Gender Information Value Date Recorded Sex Assigned at Not on file Legal Sex Female 9:50 AM EST Gender Identity Not on file Sexual Orientation Not on file Obstetrics History Para Term AB IAB SAB Ectopic Multiple Livin g Live Births 2 Last Filed Vital Signs Vital Sign Reading Time Taken Comments Blood Pressure 104/60 12/17/2024 10:36 AM EDT Pulse 68 12/17/2024 10:36 AM EDT Temperature 35.6 ??C (96 ??F) 12/17/2024 10:36 AM EDT Respiratory Rate 16 12/17/2024 10:36 AM EDT Oxygen Saturation 98% 12/17/2024 10:36 AM EDT Inhaled Oxygen Concentration - - Weight 107 kg (236 lb 6.4 oz) 12/17/2024 10:36 A M EDT Height 157.5 cm (5' 2 ) 12/17/2024 10:36 AM EDT Body Mass Index 43.24 12/17/2024 10:36 AM EDT Plan of Treatment Upcoming Encounters Date Type Department Care Team (Late st Contact Info) Description 02/09/2025 8:30 AM EDT Office Visit Pulmonolgy - [place] [address] [place] [phone] Jessie Kirby, WILLIAM [address] [place] [address] 07/06/2025 10:00 AM EST Ancillary Procedure [facility] [address] [facility] [address] [place] [phone] Health Maintenance Due Date Last Done Comments Diabetes: Annual Foot Exam 1980 Diabetes: Annual Retina Eye Exam 1980 Hepatitis B Vaccines (1 of 3 - 19+ 3-dose series) 1989 Cervical Cancer Screening: Pap Smear 12/22/1991 COVID-19 Vaccine (3 - Pfizer risk series) 05/19/2021 04/21/2021, 03/31/2021 Social Influencers of Health Screening 08/11/2022 Diabetes: Blood Sugar Control Test (HGBA1C) 05/21/2025 11/18/2024, 06/16/2024, 07/31/2023 Diabetes: Annual Urine Albumin-Creatinine Ratio (uACR) 06/16/2025 06/16/2024, 01/22/2023, 06/13/2021, Additional history exists Diabetes: Annual GFR (Glomerular Filtration Rate) 06/16/2025 06/16/2024, 04/09/2024, 07/31/2023 Hypertension/CHF/CAD Annual BMP Blood Test 06/16/2025 06/16/2024, 04/09/2024, 07/31/2023 Depression Screening 11/18/2025 11/18/2024 Breast Cancer Screening 11/18/2026 11/19/19 25, 11/18/2023, 11/13/2022, Additional history exists Cholesterol Screening (Lipid Panel) [...] age to complete this topic Meningococcal B Vaccine Aged Out No l onger eligible based on patient's age to complete this topic RSV Immunization Patients Under 20 months Aged Out No longer eligible based on patient's age to complete this topic Varicella Vaccines Aged Out No longer eligible based on patient's age to complete this topic Procedures Procedure Name Priority Date/Time Associated Diagnosis Comments MG MAMMO DIGITAL SCREENING W CATRACHO BILAT Routine 11/18/2024 1:48 PM EDT Encounter for screening mammogram for malignant neoplasm of breast HM ANNUAL BMP BLOOD TEST Routine 07/31/2023 HEMOGLOBIN A1C Routine 07/31/2023 LIPID PANEL Routine 07/31/2023 COLONOSCOPY Routine 09/28/2021 HEPATITIS C SCREENING Routine 07/08/2020 HIV SCREENING Routine 07/08/2020 URINE ALBUMIN CREATININE RATIO Routine 01/22/2019 from Last 3 Months or Most Recently Relevant to Health Maintenance Results * MG Mammo Digital Screening w Catracho bilat (11/18/2024 1:48 PM EDT) Anatomical Region Laterality Modality Breast Bilateral Mammography 11/18/2024 3:56 PM EDT Impressions 11/18/2024 3:58 PM EDT No evidence of breast malignancy. BI-RADS CATEGORY: 2 - BENIGN RECOMMENDATION: Screening bilateral mammogram is recommended in 1 year. Mammo Location: [facility], [address] [place] [address], [address], . -------- FINAL REPORT -------- Dictated By: Grace Pretty Dictated Date: 11/18/2024 15:56 ET Assigned Physician: Grace Pretty Reviewed and Electronically Signed By: Grace Pretty Signed Date: 11/18/2024 15:58 ET Workstation ID: [id number] Transcribed By: Self Edit Transcribed Date: 11/18/2024 15:56 ET Narrative 11/18/2024 3:58 PM EDT CLINICAL: 53 years old, Female, routine annual exam. COMPARISON: 11/18/2023, 11/12/2022, 11/06/2021, 11/03/2020 and 10/29/2019 ?? TECHNIQUE: Bilateral MLO and CC views were obtained digitally with 3-D mammogram (digital breast tomosynthesis). Computer-aided detection was utilized in evaluation of this exam (CAD). FINDINGS: There is no evidence of suspicious mass or architectural distortion. ??No worrisome calcifications are evident. ??There has been no significant change from prior exam(s). ? Stable biopsy marker in the right breast. BREAST DENSITY: A - The breasts are almost entirely fatty. Procedure Note Grace Pretty MD - 11/18/2024 CLINICAL: 53 years old, Female, routine annual exam. COMPARISON: 11/18/2023, 11/12/2022, 11/06/2021, 11/03/2020 and 10/29/2019 TECHNIQUE: Bilateral MLO and CC views were obtained digitally with 3-Dmammogram (digital breast tomosynthesis). Computer-aided detection wasutilized in evaluation of this exam (CAD). FINDINGS: There is no evidence of suspicious mass or architectural distortion. Noworrisome calcifications are evident. There has been no significantchange from prior exam(s). Stable biopsy marker in the right breast. BREAST DENSITY: A - The breasts are almost entirely fatty. IMPRESSION: No evidence of breast malignancy. BI-RADS CATEGORY: 2 - BENIGN RECOMMENDATION: Screening bilateral mammogram is recommended in 1 year. Mammo Location: [facility], [address] [place] [address], [facility], . -------- FINAL REPORT -------- Dictated By: Grace Pretty Dictated Date: 11/18/2024 15:56 ET Assigned Physician: Grace Pretty Reviewed and Electronically Signed By: Grace Pretty Signed Date: 11/18/2024 15:58 ET Workstation ID: [id number] Transcribed By: Self Edit Transcribed Date: 11/18/2024 15:56 ET Jessie HATHAWAY IMG BI PROCEDURES Final Result * Annual BMP Blood Test (07/31/2023) Annual BMP Blood Test Abstracted Historical Provider HEALTH MAINTENANCE Final Result * Hemoglobin A1c (07/31/2023) Hemoglobin A1C 0.0 % Comment:No interpretation Blood Venous blood specimen / Unknown Historical Provider LAB BLOOD ORDERABLES Eunice l Result * Lipid panel (07/31/2023) Pathologist [facility] Triglycerides 0 mg/dL Comment:No interpretation Cholesterol 0 mg/dL Comment:No interpretation HDL 0 mg/dL Comment:No interpretation LDL Cholesterol 0 mg/dL Comment:No interpretation Blood Venous blood specimen / Unknown [facility] Provider LAB BLOOD ORDERABLES Eunice l Result * Colonoscopy (09/28/2021) Pathologist [facility] Colonoscopy No interpretation , abstracted Anatomical Region Laterality Modality Other [facility] Provider HEALTH MAINTENANCE Final Result * HIV Screening (07/08/2020) [facility] HIV Screening Abstracted Result [facility] Provider HEALTH MAINTENANCE Final Result * Hepatitis C Screening (07/08/2020) [facility] Hepatitis C Screening Abstracted [facility] Provider HEALTH MAINTENANCE Final Result * Urine Albumin Creatinine Ratio (01/22/2019) Pathologist [facility] Urine Albumin Creatinine Ratio Abstracted [facility] Provider HEALTH MAINTENANCE Final Result from Last 3 Months or Most Recently Relevant to Health Maintenance Insurance MEDICAID - [place] Care Teams Junior Account Manager Relationship Specialty Start Date End Date Jessie Mesa PA [address] [place] [address] PCP - General Internal Medicine 11/22/20
--- OUTSIDE RECORDS SUMMARY | 2025-01-18 10:14 | XMS_ITS | Encounter Summary ---
Author Organization [facility] Address [address] [place] [address] Care Team Providers Care Gastroenterology Teacher Name Role Phone Jessie Mesa Primary Care Provider [phone] Reason for Visit * Reason Onset Date Comments Accomodation verification 01/12/2025 Encounter Details Date Type Department Care Team ([facility] Contact Info) Description [facility] [address] [place] [phone] Jessie Kirby, WILLIAM [address] [place] [address] Accomodation verification Social History Tobacco Use Types Packs/Day Years Used Date Smoking Tobacco: Never Smokeless Tobacco: Never Alcohol Use Standard Drinks/Week Comments No 0 (1 standard drink = 0.6 oz pur e alcohol) Comments No Sex and Gender Information Value Date Recorded Sex Assigned at Not on file Legal Sex Female 9:50 AM EST Gender Identity Not on file Sexual Orientation Not on file documented as of this encounter Progress Notes * Juanpablo Duenas [place] - 01/13/2025 10:18 AM EDT Form fill out pt could waste picker form. Pt informed. * Vicki Palmer - 01/12/2025 11:15 AM EDT Patient came into lobby to drop off forms needed for accomodation. Forms need to specify not tiles,new carpet. Forms placed in provider folder at checkout. Please advice. documented in this encounter Plan of Treatment Upcoming Encounters Date Type Department Care Team (Late st Contact Info) Description 02/09/2025 8:30 AM EDT Office Visit Pulmonolgy - [place] [address] [place] [address] Jessie Kirby NP [address] [place] [address] 07/06/2025 10:00 AM EST Ancillary Procedure [facility] [address] [facility] [address] [place] [address] documented as of this encounter Visit Diagnoses Not on filedocumented in this encounter Care Teams Gastroenterology Teacher Relationship Specialty Start Date End Date Jessie Mesa PA [address] [place] [address] PCP - General Internal Medicine 11/22/20 documented as of this encounter
--- OUTSIDE RECORDS SUMMARY | 2025-01-18 10:14 | XMS_ITS | Clinical Summary ---
Author Organization [facility] Address [address] [place] [address] Care Team Providers Care Aircraft Armorer Name Role Phone Jessie Mesa PA-C Primary Care Provider [phone] Source Comments PLEASE NOTE, if this patient [...] hours as needed for pain 30 Tablet 10/09/19 22 Active PROAIR HFA 90 mcg/actuation inhalerIndications: 2019 novel coronavirus disease (COVID-19) INHALE 2 PUFFS INTO THE LUNGS EVERY 4 HOURS NEEDED FOR COUGH OR WHEEZING 8.5 g 5 05/29/20 22 Active cetirizine (ZYRTEC) 10 mg tabletIndications:S easonal allergies TAKE 1 TABLET BY MOUTH ONCE DAILY NEEDED FOR ALLERGIES 90 Tablet 09/27/19 23 Active esomeprazole (NEXIUM) [address] capsuleIndications: Dyspepsia Take 1 Capsule by mouth every morning before breakfast 90 Capsule 2 01/17/20 23 Active FREESTYLE LANCETS 28 gaugeIndications:Ty pe 2 diabetes mellitus without complication, without long-term current use of insulin ([facility]) FREESTYLE LITE LANCETS, USE TWICE A DAY DX E11.9 100 Each 11 03/04/20 23 Active alcohol swabs Use bid Dx E11.9 100 Each 11 04/03/20 23 Active levothyroxine 137 mcg tablet Take 1 Tablet by mouth once daily 90 Tablet 3 05/27/20 23 Active lidocaine (XYLOCAINE) 5 % ointIndications:Lef t lumbar radiculopathy Apply topically 30 g 6 07/31/20 23 Active diclofenac sodium (VOLTAREN) 1 % gelIndications:Left lumbar radiculopathy APPLY 2 G TOPICALLY 2 (TWO) TIMES DAILY. 100 g 11 08/03/20 23 Active tamsulosin (FLOMAX) 0.4 mg 24 hr capsuleIndications: Bilateral nephrolithiasis TAKE 1 CAPSULE BY MOUTH ONCE DAILY FOR KIDNEY STONE 90 Capsule 1 12/04/19 24 Active traMADoL (ULTRAM) 50 mg tabletIndications:L umbar disc disease Take 1 Tablet by mouth 2 (two) times daily as needed for pain 40 Tablet 05/01/20 24 Active blood sugar diagnostic (FREESTYLE LITE STRIPS) strips USE SHUKRI LO INDICADO DOS VECES AL DELMA 100 Each 11 05/09/20 24 Active metFORMIN (GLUCOPHAGE) 500 mg tabletIndications:T ype 2 diabetes mellitus without complication, without long-term current use of insulin ([facility]) TOME FIORELLA TABLETA POR VIA ORAL DOS VECES AL DELMA CON ALIMENTO 180 Tablet 3 08/05/20 24 Active tirzepatide (MOUNJARO) 2.5 mg/0.5 mL pnijIndications:Typ e 2 diabetes mellitus without complication, without long-term current use of insulin ([facility]),Hypoglyce romulo INYECTE 2.5 MG POR VIA SUBCUTANEA SEMANALMENTE 6 mL 3 11/14/19 25 Active compr.stocking,knee ,long,largeIndicati ons:Spider vein of lower extremity Compression stockings for daily use 15-20, BMI 45.70, Weight: 234 lb, Height: 5'1 1 Each 11/19/19 25 Active famotidine (PEPCID) 20 mg tabletIndications:D yspepsia TOME FIORELLA TABLETA POR VIA ORAL DOS VECES AL DELMA CUANDO SEA NECESARIO 180 Tablet 3 11/30/19 25 Active promethazine (PHENERGAN) 6.25 mg/5 mL syrupIndications:Ac rosebud cough Take 10 mL by mouth 3 (three) times daily as needed for other reason (cough) 240 mL 12/31/19 25 Active montelukast (SINGULAIR) 10 mg tablet Take 1 Tablet by mouth nightly at bedtime 12/31/19 25 Active fluticasone propion-salmeteroL (ADVAIR) 250-50 mcg/dose diskus inhaler Inhale 1 Puff into the lungs 2 (two) times daily 12/31/19 25 Active Active Problems Problem Noted Date Diagnosed Date Other specified glaucoma 07/31/2023 Lumbar disc disease 04/25/2023 Peripheral neuropathic pain 01/04/2022 Seasonal allergies 01/04/2022 History of COVID-19 08/30/2020 06/13/2021 Body mass index (BMI) 50.0-59.9, adult ([facility]) 12/13/2020 Generalized anxiety disorder 04/06/2020 Papillary thyroid carcinoma ([facility]) 02/10/2020 Bilateral nephrolithiasis 11/15/2019 Overview (11/15/2019): 11/06/2019: CT [facility] abd[facility]pelvis at [facility]: IMPRESSION: Nonobstructing calculi within the kidneys bilaterally. No evidence of ureteral calculi or hydronephrosis. Incompletely distended urinary bladder with mild perivesicular fat stranding which may represent cystitis in the appropriate clinical settin Pelvic prolapse/mixed urinary incontinence 12/18 S/P JOHN (total abdominal hysterectomy) Dr. Giancarlo del toro 201411/06/2018 Major depressive disorder, r ecurrent episode with anxious distress ([facility] V24) 06/18/2018 Sciatica of right side, [facility] ED 03/17/2017 0 03/22/2017 Overview (03/22/2017): Result type: Discharge/Transfer Note Hospital Result date: March 17, 2017 14:02 Result status: Auth (Verified) Result title: Hospitalist Discharge Summary Performed by: Eh Stewart MD on March 17, 2017 14:08 Verified by: Eh Stewart MD on March 17, 2017 14:08 Encounter info: [id number], [facility], Disch Obv, 03/16/2017 - 03/17/2017 Hospitalist Discharge Summary Patient: RUEL DONATO Age: 46 years Sex: Female : 1970 Associated Diagnoses: None Author: David Stewart MDhammad Discharge Information Admission Date: 03/16/2017 Discharge Date [...] Up with: Please follow up with your electric car operator in one wk; Faith Mesa Within 1 [...] on March 26, 2013 17:34 Encounter info: [id number], [facility], One [facility], 03/19/2013 - 03/19/2013 Contributor system: NUANCE * Final Report * Polysomnogram (Verified) PRELIMINARY REPORT UNLESS MANUALLY/ELECTRONICALLY SIGNED [facility] SLEEP PROGRAM [facility] Accredited by the [place] [employer] POLYSOMNOGRAM REPORT Referring Provider: Murtaza Silva Date of Service: 03/19/2013 Order ID: [id number] INTRODUCTION: This 42 year-old female is referred with history of JONATAN. The sleep questionnaire noted excessive sleepiness, difficulty sleeping and waking frequently at night, and heartburn at night.The height is 62 inches. The weight is 235.1 lbs. The BMI is 43.2. MEDICATIONS: synthroid, imitrex, ergo. DESCRIPTION: This overnight polysomnogram was done utilizing a OYE! polysomnograph machine. Four channels of EEG for [...] can be referred to sleep clinic at [facility]. Dictated by: Megan Lopes M.D. Signing Clinician: Megan Lopes M.D. Dictated: 03/25/2013 10:17:35 Transcribed: 03/25/2013 22:08:29 Transcribed by: LANE DocID: [id number] CC:Lupillo Gibson M.D. [facility] [address] [place], [address] [facility] Anastasia Hauser [facility] - Internal Medicine [address] [place] [address], [address] Type 2 diabetes mellitus wit hout complication, without long-term current use of insulin ([facility]) 05/17/2016 Acute reaction to situational stress 05/17/2016 [...] on 03 October 2013 13:21 Encounter info: [id number], [facility], [facility], 09/29/2013 - 09/29/2013 Results Letter Patient: MARITZA [...] inflammation in your stomach and duodenum. Antolin eVnegas MD [facility] Gastroenterology [address] [facility], [address] [facility], [address] Non morbid obesity due to excess calories 2015 Resolved Problems Problem Noted Date Diagnosed Date Resolved Date 2018 novel coronavirus disea se (COVID-19) 08/30/2020 09/12/2020 06/13/2021 Encounters Date Type Department Care Team Description 12/30/2024 1:20 PM EDT Office Visit [address] [phone] Iván Rdz NP Diaz, Wilma Acute cough (Primary Dx) 11/23/2024 Interim Notes [address] [phone] Katia Deshpande 11/18/2024 9:20 AM EDT Office Visit [address] [phone] Magdalena Epps PA-C Spider vein of lower extremity (Primary Dx); Pain in both lower extremities; Type 2 diabetes mellitus without complication, without long-term current use of insulin ([facility]); Class 3 severe obesity due to excess calories without serious comorbidity with body mass index (BMI) of 45.0 to 49.9 in adult ([facility]); Hypothyroidism (acquired) from Last 3 Months Immunizations Immunization Administration Dates Next Due Flu, Cell Culture based, Pre servative Free, 6m+, Flucelvax 09/29/2018 Flu, Preservative Free 07/05/2022,2019,06/11/2019,07/03,07/03/2013 INFLUENZA, SEASONAL, INJECTABLE 06/05/2016 Influenza (FLUBLOK),recombinant,injectable,prese rvative Free 06/16/2024 PNEUMOCOCCAL CONJUGATE PCV 2 0 (Prevnar) 01/08/2024 PNEUMOCOCCAL POLYSACCHARIDE PPV23 (Pneumovax 23) 05/08/2020 TDAP 06/16/2024 ZOSTER VACCINE, RECOMBINANT (SHINGRIX) [...] Sign Reading Time Taken Comments Blood Pressure 116/82 12/30/2024 1:23 PM EDT Pulse 73 12/30/2024 1:23 PM EDT Temperature 36.3 ??C (97.4 ??F) 12/30/2024 1:23 PM ED T Respiratory Rate 16 12/30/2024 1:23 PM EDT Oxygen Saturation 99% 12/30/2024 1:23 PM EDT Inhaled Oxygen Concentration - - Weight 107.7 kg (237 lb 6.4 oz) 12/30/2024 1:23 PM EDT Height 152.4 cm (5') 12/30/2024 1:23 PM EDT Body Mass Index 46.36 12/30/2024 1:23 PM EDT Plan of Treatment Health Maintenance Due Date Last Done Comments Dental Examination 1970 HPV Screening 1970 Pap + HPV 1970 Imm-Hepatitis B (1 of 3 - 19 + 3-dose series) 1989 CT Colonography 12/22/2015 FIT/gFOBT 12/22/2015 Fecal DNA 12/22/2015 Flexible Sigmoidoscopy 12/22/2015 Anxiety Screening 03/09/2021 03/09/2020 Annual Wellness (Adult): Indicated (All Coverage) 10/10/2023 10/10/2022, 09/29/2021, 05/06/2020, Additional history exists [id number] ( season) 2024 021, 03/31/2021 Retinopathy Screening 10/28/2024 10/28/2023 , 04/29/2023, 06/12/2022, Additional history exists Depression Monitoring 02/18/2025 11/18/2024 , 04/08/2024, 01/08/2024, Additional history exists Diabetes Foot Exam 05/01/2025 05/01/2024, 1 10/01/2022, 01/16/2023, Additional history exists Diabetes HbA1c 05/21/2025 11/18/2024, 06/02, 07/31/2023, Additional history exists Lipid Screening 06/16/2025 06/16/2024, 07/04, 07/31/2023, Additional history exists Serum Creatinine 06/16/2025 06/16/2024, 04/2024, 07/31/2023, Additional history exists Urine Albumin Creatinine Rat io Screening 06/16/2025 06/16/2024, 01/22/2023, 06/13/2021, Additional history exists Breast Cancer Screening (Mammogram) 11/18/2025 11/18/2024, 11/18/2024, 11/18/2023, Additional history exists Tobacco Screening 11/18/2025 11/18/2024, 04/08/2024 Hypertension Screening (#1) 12/30/2025 Colonoscopy 09/28/2031 09/28/2021 Colorectal Cancer Screening 09/28/2031 Imm-DTaP/Tdap/Td (2 - Td or Tdap) 06/16/2034 024 HIV Screening Completed 07/08/2020, 07/08/2020 Hepatitis C Screening Completed 07/08/2020 Imm-Zoster, Recombinant Completed 10/10/2022, 07/11 Imm-Pneumococcal Completed 01/08/2024, 05/08/2020 Imm-Influenza Completed 06/16/2024, 11/0 10/2021, 05/08/2020, Additional history exists Alcohol and Drug Screen Completed 11/19/19 25, 01/08/2024, 10/09/2023, Additional history exists Cervical Ablation/Cold-Knife Conization Discontinued Cervical Cancer Screening Discontinued Cervical Cryotherapy Discontinued Colposcopy Discontinued Endometrial Biopsy Discontinued Excision/Leep Discontinued HPV Genotyping Discontinued Pap Smear Discontinued Vaginal Pap Discontinued Vulvoscopy Discontinued Procedures Procedure Name Priority Date/Time Associated Diagnosis Comments ID NOW STREP A2 (POCT) Routine 2:04 PM EDT Acute cough COVID-19, ID NOW, CHICAS (POCT) Routine 12/30/2024 2:04 PM EDT Acute cough TSH W/RFLX FREE T4 Routine 11/18/2024 9: 55 AM EDT Hypothyroidism (acquired) HGA1C W/EAG Routine 11/18/2024 9:55 AM EDT Type 2 diabetes mellitus without complication, without long-term current use of insulin ([facility]) Class 3 severe obesity due to excess calories without serious comorbidity with body mass index (BMI) of 45.0 to 49.9 in adult ([facility]) GLUCOSE FASTING Routine 11/18/2024 9:55 AM EDT Type 2 diabetes mellitus without complication, without long-term current use of insulin ([facility]) Class 3 severe obesity due to excess calories without serious comorbidity with body mass index (BMI) of 45.0 to 49.9 in adult ([facility]) HISTORIC MAMMOGRAM 11/18/2024 3: 00 AM EDT REFERRAL SCANNED DOCUMENT 11/05/2024 3:00 AM EST COMPREHENSIVE METABOLIC PANEL Routine 06/16/2024 2:33 PM EDT Hypothyroidism (acquired) Non morbid obesity due to excess calories Type 2 diabetes mellitus without complication, without long-term current use of insulin ([facility]) Lumbar disc disease Routine general medical examination at a [facility] Malaise and fatigue LIPID PANEL Routine 06/16/2024 2:33 PM EDT Hypothyroidism (acquired) Non morbid obesity due to excess calories Type 2 diabetes mellitus without complication, without long-term current use of insulin ([facility]) Lumbar disc disease Routine general medical examination at a health care facility Malaise and fatigue MICROALBUMIN/CREATININ E RATIO, URINE, RANDOM Routine 06/16/2024 2:33 PM EDT Hypothyroidism (acquired) Non morbid obesity due to excess calories Type 2 diabetes mellitus without complication, without long-term current use of insulin ([facility]) Lumbar disc disease Routine general medical examination at a health care facility Malaise and fatigue EYE EXAM 10/28/2023 3:00 AM EST HISTORIC COLONOSCOPY 09/28/2021 3:00 AM EST ANTIBODY HIV-1&HIV-2 SINGLE RESULT Routine 07/08/2020 1:40 PM EST Type 2 diabetes mellitus without complication, without long-term current use of insulin ([facility]) Non morbid obesity due to excess calories HEPATITIS A,B,C PANEL Routine 07/08/2020 1:40 PM EST Type 2 diabetes mellitus without complication, without long-term current use of insulin ([facility]) Non morbid obesity due to excess calories from Last 3 Months or Most Recently Relevant to Health Maintenance Results * COVID-19, ID NOW, CHICAS (POCT) (12/30/2024 2:04 PM EDT) COVID-19 NEGATIVE NEGATIVE [facility] POCT INTERNAL CONTROL PASS PASS [facility] POCT Swab Nasal structure / Unknown 12/30/2024 2:04 PM EDT us Iván Rdz NP LAB - NO BLOOD DRAW Final Resul t [facility] POCT * ID NOW STREP A2 (POCT) (12/30/2024 2:04 PM EDT) STREP A NEGATIVE NEGATIVE [facility] PO[facility] INTERNAL CONTROL PASS PASS [facility] POCT Swab Structure of anterior portion of neck / Unknown 12/30/2024 2:04 PM EDT Iván Rdz CHEMICAL PROCESS PROJECT ENGINEER LAB - NO BLOOD DRAW Final Resul t Performing Organization Address City/[facility]/ZIP Co de Phone Number [facility] PO[facility] * (ABNORMAL) HGA1C W/EAG (11/18/2024 9:55 AM EDT) HEMOGLOBIN A1C 6.3(H) <5.7 % of total Hgb [employer] Comment: For someone without known diabetes, a [...] A1c for diagnosis of diabetes for children. EAG (MG/DL) 134 mg/dL [employer] [facility] EAG (MMOL/L) 7.4 mmol/L [employer] [facility] Blood Blood / Unknown 11/18/2024 9 :55 AM EDT 11/18/2024 9:56 AM EDT Narrative [employer] - 11/19/2024 4:14 AM EDT FASTING:YES Magdalena Epps PA-C LAB - BLOOD DRAW Edited Resu lt - Final Performing Organization Address City/[facility]/ZIP Co de Phone Number [employer] [address] [place] [address], [employer] [facility] [address] [place] [phone] * (ABNORMAL) GLUCOSE FASTING (11/18/2024 9:55 AM EDT) GLUCOSE, FASTING (P) 116(H) 65 - 99 mg/dL [employer] [facility] Comment: ?Fasting reference interval For someone without known diabetes, a glucose value between 100 and 125 mg/dL is consistent with prediabetes and should be confirmed with a follow-up test. Blood Blood / Unknown 11/18/2024 9 :55 AM EDT 11/18/2024 9:56 AM EDT Narrative [employer] - 11/19/2024 4:14 AM EDT FASTING:YES Magdalena Epps PA-C LAB - BLOOD DRAW Final Resul t Performing Organization Address [facility] de Phone Number [employer] [address] [address], [employer] [address] [phone] * TSH W/RFLX FREE T4 (11/18/2024 9:55 AM EDT) TSH W/REFLEX TO FT4 1.51 0.40 - 4.50 mIU/L [employer] Comment: ?Reference Range ?> or = 20 Years ??0.40-4.50 ? Ranges ?First trimester ?0.26-2.66 ?Second trimester ?? 0.55-2.73 ?Third trimester ?0.43-2.91 Blood Blood / Unknown 11/18/2024 9 :55 AM EDT 11/18/2024 9:56 AM EDT Narrative [employer] - 11/19/2024 4:14 AM EDT FASTING:YES Magdalena TOMASC LAB - BLOOD DRAW Edited Resu lt - Final Performing Organization Address [facility] Co de Phone Number [employer] [address] [address], [employer] [address] [phone] * HISTORIC MAMMOGRAM (11/18/2024 3:00 AM EDT) 11/18/2024 3:[address] [employer] Jessie HATHAWAY-C IMG MAMMO Final Result * REFERRAL SCANNED DOCUMENT (11/05/2024 3:00 AM EST) 11/05/2024 3:00 AM EST Jessie HATHAWAY-C SCAN REFERRAL Final Result * MICROALBUMIN/CREATININE RATIO, URINE, RANDOM (06/16/2024 2:33 PM EDT) CREATININE, RANDOM URINE 108 20 - 275 mg/dL [employer] [facility] MICROALBUMIN <0.2 mg/dL [employer] [facility] Comment: Reference Range Not established MICROALBUMIN/CREA TININE RATIO, RANDOM URINE NOTE <30 [facility] [employer] Comment: NOTE: The urine albumin value is [...] PM EDT 06/16/2024 2:34 PM EDT Narrative [employer] - 06/19/2024 2:17 PM EDT FASTING:NO Jessie HATHAWAY-C LAB - NO BLOOD DRAW Final Re sult [employer] [address] [address], [facility] [employer] [facility] [address] [place] [address] * (ABNORMAL) LIPID PANEL (06/16/2024 2:33 PM EDT) Pathologist [facility] CHOLESTEROL, TOTAL 144 <200 mg/dL [employer] [facility] HDL CHOLESTEROL 56 > OR = 50 mg/dL [employer] [facility] TRIGLYCERIDES 152(H) <150 mg/dL [employer] [facility] LDL-CHOLESTEROL 65 99 mg/dL (calc) [employer] [facility] Comment: Reference range: <100 Desirable range <100 mg/dL for primary prevention; ?? <70 mg/dL for patients with CHD or diabetic patients with > or = 2 CHD risk factors. LDL-C is now calculated using the Duane calculation, which is a validated novel method providing better accuracy than the Friedewald equation in the estimation of LDL-C. Luis Alberto PICKARD et al. MARIA FERNANDA. 2013;310(19): 1504-4635 (http://education.[employer]faq/JGS454) CHOL/HDLC RATIO 2.6 <5.0 (calc) [employer] [facility] NON-HDL CHOLESTEROL 88 <130 mg/dL (calc) [employer] [facility] Comment: For patients with diabetes plus 1 major ASCVD risk factor, treating to a non-HDL-C goal of <100 mg/dL (LDL-C of <70 mg/dL) is considered a therapeutic option. Blood Blood / Unknown 06/16/2024 2 :33 PM EDT 06/16/2024 2:34 PM EDT Narrative [employer] [facility] - 06/19/2024 2:17 PM EDT FASTING:NO us Jessie Mesa PA-C LAB - BLOOD DRAW Final Resul t [employer] [address] [address], [employer] [address] [address] * COMPREHENSIVE METABOLIC PANEL (06/16/2024 2:33 PM EDT) Pathologist [facility] GLUCOSE 89 65 - 139 mg/dL [employer] [facility] Comment: ?Non-fasting reference interval UREA NITROGEN (BUN) 16 7 - 25 mg/dL [employer] [facility] CREATININE (blood) 0.74 0.50 - 1.03 mg/dL [employer] [facility] EGFR 97 > OR = 60 mL/min/1. 73m2 [employer] [facility] BUN/CREATININE RATIO SEE NOTE: [employer] [facility] Comment: ?? Not Reported: BUN and Creatinine are within ?? reference range. ? SODIUM 141 135 - 146 mmol/L [employer] [facility] POTASSIUM 4.2 3.5 - 5.3 mmol/L [employer] [facility] CHLORIDE 105 98 - 110 mmol/L [employer] [facility] CARBON DIOXIDE 29 20 - 32 mmol/L [employer] [facility] CALCIUM 9.0 8.6 - 10.4 mg/dL [employer] [facility] PROTEIN, TOTAL 7.0 6.1 - 8.1 g/dL [employer] [facility] ALBUMIN 3.8 3.6 - 5.1 g/dL [employer] [facility] GLOBULIN 3.2 1.9 - 3.7 g/dL (calc) [employer] [facility] ALBUMIN/GLOBULI N RATIO 1.2 1.0 - 2.5 (calc) [employer] [facility] BILIRUBIN, TOTAL 0.4 0.2 - 1.2 mg/dL [employer] [facility] ALKALINE PHOSPHATASE 76 37 - 153 U/L [employer] [facility] AST 19 10 - 35 U/L [employer] [facility] ALT 24 6 - 29 U/L [employer] [facility] Blood Blood / Unknown 06/16/2024 2 :33 PM EDT 06/16/2024 2:34 PM EDT Narrative [employer] [facility] - 06/19/2024 2:17 PM EDT FASTING:NO Jessie Mesa PA-C LAB - BLOOD DRAW Edited Resu lt - Final [employer] [address] [address], [employer] [address] [address] * EYE EXAM (10/28/2023 3:00 AM EST) 10/28/2023 3:00 AM EST Jessie Mesa PA-C OTHER Edited Resul t - Final * HISTORIC COLONOSCOPY (09/28/2021 3:00 AM EST) 09/28/2021 3:00 AM EST Jessie Mesa PA-C PROCEDURES Final Result * (ABNORMAL) HEPATITIS A,B,C PANEL (07/08/2020 1:40 PM EST) HEPATITIS B SURFACE ANTIBODY NEGATIVE NEGATIVE [facility] HEPATITIS B SURFACE ANTIGEN NEGATIVE NEGATIVE [facility] Comment: Over the counter supplements containing high doses of biotin may interfere with this assay. ??If interference is suspected, patients shoud be retested after refraining from biotin supplements for 72 hours. HEPATITIS C VIRUS DIAGNOSTIC NEGATIVE NEGATIVE [facility] HEPATITIS A ANTIBODY TOTAL POSITIVE(A) NEGATIVE [facility] Comment: Over the counter supplements containing high doses of biotin may interfere with this assay. ??If interference is suspected, patients shoud be retested after refraining from biotin supplements for 72 hours. HEPATITIS B CORE ANTIBODY NEGATIVE NEGATIVE [facility] Blood Blood / Unknown 07/08/2020 1 :40 PM EST 07/08/2020 3:02 PM EST Narrative [facility] - 07/08/2020 7:07 PM EST [employer] [address] Linen Grader - Danae Contreras MD PT ID [id number] ORD# [id number] Jessie Mesa PA-C LAB - BLOOD DRAW Edited Resu lt - Final [address] [address], * HIV-1 & HIV-2 ANTIBODIES (07/08/2020 1:40 PM EST) HIV 1 AND 2 ANTIBODY SCREEN NEGATIVE NEGATIVE [facility] Comment: This assay is a 4th generation [...] PM EST 07/08/2020 3:02 PM EST Narrative [employer] - 07/08/2020 7:36 PM EST [employer], a member of [address] [address] [employer]inen Grader - Danae Contreras MD PT ID [id number] ORD# [id number] Jessie Mesa PA-C LAB - BLOOD DRAW Final Resul t [employer]-[address] [address], from Last 3 Months or Most Recently Relevant to Health Maintenance Insurance [facility] [employer] [employer] Care Teams Aircraft Armorer Relationship Specialty Start Date End Date Jessie Mesa PA-C [address] [place] [phone] PCP - General Internal Medicine 12/02/15
== END 2025-01-18 10:25 | disposition home or self-care (01) ==
LOC: HO.ENCR 09:54
PROVIDERS: PCP Physician Assistant; Visit Provider Student in an Organized Health Care Education/Training Program
DX: Z85.850 Personal history of malignant neoplasm of thyroid (principal); E89.0 Postprocedural hypothyroidism
CPT/HCPCS: 99214

== ENCOUNTER → 2025-01-18 09:53 | Outpatient (BNVA) | payer MEDICAID, SELFPAY | PROVIDERS: PCP Physician Assistant; Visit Provider Student in an Organized Health Care Education/Training Program | DX: E89.0 Postprocedural hypothyroidism (principal); Z85.850 Personal history of malignant neoplasm of thyroid | CPT/HCPCS: 99212 ==

== ENCOUNTER 2025-01-18 10:30 | Outpatient (REF) | payer MEDICAID, SELFPAY ==
--- OUTSIDE RECORDS SUMMARY | 2025-01-18 11:08 | XMS_ITS | Encounter Summary ---
Author Organization [facility] Address [address] [place] [address] Care Team Providers Care Mirror Specialist Name Role Phone Jessie Mesa Primary Care Provider [phone] Reason for Visit * Reason Onset Date Comments Accomodation verification 01/12/2025 Encounter Details Date Type Department Care Team ([facility] Contact Info) Description [facility] [address] [place] [phone] Jessie Kirby, WILLIAM [address] [place] [address] Accomodation verification Social History Tobacco Use Types [...] AM EDT 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 Pt informed. * Vicki Palmer - [...] 8:30 AM EDT Office Visit Pulmonolgy - [place] [address] [place] [phone] Jessie Kirby NP [address] [place] [address] 07/06/2025 10:00 AM EST Ancillary Procedure [facility] [address] [facility] [address] [place] [phone] documented as of this encounter Visit Diagnoses Not on filedocumented in this encounter Care Teams Mirror Specialist Relationship Specialty Start Date End Date Jessie Mesa PA [address] [place] [address] PCP - General Internal Medicine 11/22/20 documented as of this encounter
--- OUTSIDE RECORDS SUMMARY | 2025-01-18 11:08 | XMS_ITS | Clinical Summary ---
Author Organization [facility] Address [address] [place] [address] Care Team Providers Care Chemistry Associate Name Role Phone Jessie Mesa PA-C Primary Care Provider [phone] Source Comments PLEASE NOTE, if this patient [...] complication, without long-term current use of insulin ([facility]) FREESTYLE LITE LANCETS, USE TWICE A DAY [...] complication, without long-term current use of insulin ([facility]) TOME FIORELLA TABLETA POR VIA ORAL DOS VECES AL DELMA CON ALIMENTO 180 Tablet 3 08/05/20 24 Active tirzepatide (MOUNJARO) 2.5 mg/0.5 mL pnijIndications:Typ e 2 diabetes mellitus without complication, without long-term current use of insulin ([facility]),Hypoglyce romulo INYECTE 2.5 MG POR VIA SUBCUTANEA [...] Active promethazine (PHENERGAN) 6.25 mg/5 mL syrupIndications:Ac [place] cough Take 10 mL by mouth 3 [...] 06/13/2021 Body mass index (BMI) 50.0-59.9, adult ([facility]) 12/13/2020 Generalized anxiety disorder 04/06/2020 Papillary thyroid carcinoma ([facility]) 02/10/2020 Bilateral nephrolithiasis 11/15/2019 Overview (11/15/2019): 11/06/2019: CT [facility] abd[facility]pelvis at [facility]: IMPRESSION: Nonobstructing calculi within the kidneys bilaterally. No evidence of ureteral calculi or hydronephrosis. Incompletely distended urinary bladder with mild perivesicular fat stranding which may represent cystitis in the appropriate clinical settin Pelvic prolapse/mixed urinary incontinence 12/18 S/P JOHN (total abdominal hysterectomy) Dr. Giancarlo del toro 201411/06/2018 Major depressive disorder, r ecurrent episode with anxious distress ([facility] V24) 06/18/2018 Sciatica of right side, [facility] ED 03/17/2017 0 03/22/2017 Overview (03/22/2017): Result type: Discharge/Transfer Note Hospital Result date: March 17, 2017 14:02 Result status: Auth (Verified) Result title: Hospitalist Discharge Summary Performed by: Eh Stewart MD on March 17, 2017 14:08 Verified by: Eh Stewart MD on March 17, 2017 14:08 Encounter info: [id number], [facility], Disch Obv, 03/16/2017 - 03/17/2017 Hospitalist [...] Up with: Please follow up with your scalping machine operator in one wk; Faith Mesa Within [...] on March 26, 2013 17:34 Encounter info: [id number], [facility], One Time OP, 03/19/2013 - 03/19/2013 Contributor system: NUANCE * Final Report * Polysomnogram (Verified) PRELIMINARY REPORT UNLESS MANUALLY/ELECTRONICALLY SIGNED [facility] SLEEP PROGRAM [facility] Accredited by the [place] [employer] POLYSOMNOGRAM REPORT Referring Provider: Murtaza Silva Date of Service: 03/19/2013 Order ID: [id number] INTRODUCTION: This 42 year-old female is referred with history of JONATAN. The sleep questionnaire noted excessive sleepiness, difficulty sleeping and waking frequently at night, and heartburn at night.The height is 62 inches. The weight is 235.1 lbs. The BMI is 43.2. MEDICATIONS: synthroid, imitrex, ergo. DESCRIPTION: This overnight polysomnogram was done utilizing a Deepclass polysomnograph machine. Four channels of EEG for [...] can be referred to sleep clinic at [facility]. Dictated by: Megan Lopes M.D. Signing Clinician: Megan Lopes M.D. Dictated: 03/25/2013 10:17:35 Transcribed: 03/25/2013 22:08:29 Transcribed by: LANE DocID: [id number] CC:Lupillo Gibson M.D. [facility] [address] [place], [address] [facility] Anastasia Hauser [facility] - Internal Medicine [address] [place] [address], [address] Type 2 diabetes mellitus wit hout complication, without long-term current use of insulin ([facility]) 05/17/2016 Acute reaction to situational stress 05/17/2016 [...] on 03 October 2013 13:21 Encounter info: [id number], [facility], [facility], 09/29/2013 - 09/29/2013 [...] your stomach and duodenum. Antolin Venegas MD [facility] Gastroenterology [address] [facility], [address] [facility], [address] Non morbid obesity due to excess calories 2015 Resolved Problems Problem Noted Date Diagnosed Date Resolved Date 2018 novel coronavirus disea se (COVID-19) 08/30/2020 09/12/2020 06/13/2021 Encounters Date Type Department Care Team Description 12/30/2024 1:20 PM EDT Office Visit [address] [phone] Iván Rdz NP Diaz, Wilma Acute cough (Primary Dx) 11/23/2024 Interim Notes [address] [phone] Katia Deshpande 11/18/2024 9:20 AM EDT Office Visit [address] [phone] Magdalena Epps PA-C Spider vein of lower extremity (Primary Dx); Pain in both lower extremities; Type 2 diabetes mellitus without complication, without long-term current use of insulin ([facility]); Class 3 severe obesity due to excess calories without serious comorbidity with body mass index (BMI) of 45.0 to 49.9 in adult ([facility]); Hypothyroidism (acquired) from Last 3 Months Immunizations [...] 10/10/2023 10/10/2022, 09/29/2021, 05/06/2020, Additional history exists [id number] ( season) 2024 021, 03/31/2021 Retinopathy Screening [...] complication, without long-term current use of insulin ([facility]) Class 3 severe obesity due to excess calories without serious comorbidity with body mass index (BMI) of 45.0 to 49.9 in adult ([facility]) GLUCOSE FASTING Routine 11/18/2024 9:55 AM EDT Type 2 diabetes mellitus without complication, without long-term current use of insulin ([facility]) Class 3 severe obesity due to excess calories without serious comorbidity with body mass index (BMI) of 45.0 to 49.9 in adult ([facility]) HISTORIC MAMMOGRAM 11/18/2024 3: 00 AM EDT REFERRAL SCANNED DOCUMENT 11/05/2024 3:00 AM EST COMPREHENSIVE METABOLIC PANEL Routine 06/16/2024 2:33 PM EDT Hypothyroidism (acquired) Non morbid obesity due to excess calories Type 2 diabetes mellitus without complication, without long-term current use of insulin ([facility]) Lumbar disc disease Routine general medical examination at a [facility] Malaise and fatigue LIPID PANEL Routine 06/16/2024 2:33 PM EDT Hypothyroidism (acquired) Non morbid obesity due to excess calories Type 2 diabetes mellitus without complication, without long-term current use of insulin ([facility]) Lumbar disc disease Routine general medical examination at a health care facility Malaise and fatigue MICROALBUMIN/CREATININ E RATIO, URINE, RANDOM Routine 06/16/2024 2:33 PM EDT Hypothyroidism (acquired) Non morbid obesity due to excess calories Type 2 diabetes mellitus without complication, without long-term current use of insulin ([facility]) Lumbar disc disease Routine general medical examination at a health care facility Malaise and fatigue EYE EXAM 10/28/2023 3:00 AM EST HISTORIC COLONOSCOPY 09/28/2021 3:00 AM EST ANTIBODY HIV-1&HIV-2 SINGLE RESULT Routine 07/08/2020 1:40 PM EST Type 2 diabetes mellitus without complication, without long-term current use of insulin ([facility]) Non morbid obesity due to excess calories HEPATITIS A,B,C PANEL Routine 07/08/2020 1:40 PM EST Type 2 diabetes mellitus without complication, without long-term current use of insulin ([facility]) Non morbid obesity due to excess calories from Last 3 Months or Most Recently Relevant to Health Maintenance Results * COVID-19, ID NOW, CHICAS (POCT) (12/30/2024 2:04 PM EDT) COVID-19 NEGATIVE NEGATIVE [facility] BACK OFFICE POCT INTERNAL CONTROL PASS PASS [facility]- BACK OFFICE POCT Swab Nasal structure / Unknown 12/30/2024 2:04 PM EDT us Tallchito Rdz SENIOR LEAD [employer] [facility] BODY FLUIDS AND STOOLS AMBU LATORY Final Result [facility] BACK OFFICE POCT * ID NOW STREP A2 (POCT) (12/30/2024 2:04 PM EDT) STREP A NEGATIVE NEGATIVE [facility]- BACK OFFICE POCT INTERNAL CONTROL PASS PASS [facility]- BACK OFFICE POCT Swab Structure of anterior portion of neck / Unknown 12/30/2024 2:04 PM EDT Iván Rdz SENIOR LEAD [employer]EL[employer] LAB - MICROBIOLOGY AMBULATORY F inal Result [facility]- BACK OFFICE POCT * (ABNORMAL) HGA1C W/EAG (11/18/2024 9:55 AM EDT) Pathologist [facility] HEMOGLOBIN A1C 6.3(H) <5.7 % of total Hgb [employer] Comment: For someone without known diabetes, a [...] diabetes for children. EAG (MG/DL) 134 mg/dL [employer] EAG (MMOL/L) 7.4 mmol/L [employer] Blood Blood / Unknown 11/18/2024 9 :55 AM EDT 11/18/2024 9:56 AM EDT Narrative [facility] - 11/19/2024 4:14 AM EDT FASTING:YES Magdalena Epps PA-C LAB - BLOOD DRAW Edited Resu lt - Final [facility] [address] [place] [address], [employer] [address] [place] [phone] * (ABNORMAL) GLUCOSE FASTING (11/18/2024 9:55 AM EDT) Pathologist [facility] GLUCOSE, FASTING (P) 116(H) 65 - 99 mg/dL [employer] Comment: ?Fasting reference interval For someone without known diabetes, a glucose value between 100 and 125 mg/dL is consistent with prediabetes and should be confirmed with a follow-up test. Blood Blood / Unknown 11/18/2024 9 :55 AM EDT 11/18/2024 9:56 AM EDT Narrative [facility] - 11/19/2024 4:14 AM EDT FASTING:YES Magdalena Epps PA-C LAB - BLOOD DRAW Final Resul t Performing Organization Address [facility] de Phone Number [facility] [address] [address], [employer] [address] [place] [phone] * TSH W/RFLX FREE T4 (11/18/2024 9:55 AM EDT) TSH W/REFLEX TO FT4 1.51 0.40 - 4.50 mIU/L [employer] Comment: ?Reference Range ?> or = 20 Years ??0.40-4.50 ? Ranges ?First trimester ?0.26-2.66 ?Second trimester ?? 0.55-2.73 ?Third trimester ?0.43-2.91 Blood Blood / Unknown 11/18/2024 9 :55 AM EDT 11/18/2024 9:56 AM EDT Narrative [facility] - 11/19/2024 4:14 AM EDT FASTING:YES Magdalena Epps PA-C LAB - BLOOD DRAW Edited Resu lt - Final Performing Organization Address [facility] de Phone Number [facility] [address] [address], [employer] [address] [place] [phone] * HISTORIC MAMMOGRAM (11/18/2024 3:00 AM EDT) 11/18/2024 3:00 AM EDT us Jessie HATHAWAY-C IMG MAMMO Final Result * REFERRAL SCANNED DOCUMENT (11/05/2024 3:00 AM EST) 11/05/2024 3:00 AM EST Jessie HATHAWAY-C SCAN REFERRAL Final Result * MICROALBUMIN/CREATININE RATIO, URINE, RANDOM (06/16/2024 2:33 PM EDT) CREATININE, RANDOM URINE 108 20 - 275 mg/dL [employer] [facility] MICROALBUMIN <0.2 mg/dL [employer] [facility] Comment: Reference Range Not established MICROALBUMIN/CREA TININE RATIO, RANDOM URINE NOTE <30 [employer] [facility] Comment: NOTE: The urine albumin value is [...] PM EDT 06/16/2024 2:34 PM EDT Narrative [facility] - 06/19/2024 2:17 PM EDT FASTING:NO Jessie HATHAWAY-C LAB URINE AMBULATORY Final R esult [facility] [address] [address], [employer] [facility] [address] [place] [address] * (ABNORMAL) LIPID PANEL (06/16/2024 2:33 PM EDT) Pathologist [facility] CHOLESTEROL, TOTAL 144 <200 mg/dL [facility] HDL CHOLESTEROL 56 > OR = 50 mg/dL [employer] [facility] TRIGLYCERIDES 152(H) <150 mg/dL [employer] [facility] LDL-CHOLESTEROL 65 99 mg/dL (calc) [employer] [facility] Comment: Reference range: <100 Desirable range <100 mg/dL for primary prevention; ?? <70 mg/dL for patients with CHD or diabetic patients with > or = 2 CHD risk factors. LDL-C is now calculated using the Duane calculation, which is a validated novel method providing better accuracy than the Friedewald equation in the estimation of LDL-C. Luis Alberto PICKARD et al. MARIA FERNANDA. 2013;310(19): 8375-4519 (http://education.[employer]/faq/WIR662) CHOL/HDLC RATIO 2.6 <5.0 (calc) [facility] NON-HDL CHOLESTEROL 88 <130 mg/dL (calc) [facility] Comment: For patients with diabetes plus 1 major ASCVD risk factor, treating to a non-HDL-C goal of <100 mg/dL (LDL-C of <70 mg/dL) is considered a therapeutic option. Blood Blood / Unknown 06/16/2024 2 :33 PM EDT 06/16/2024 2:34 PM EDT Narrative [facility] - 06/19/2024 2:17 PM EDT FASTING:NO us Jessie Mesa PA-C LAB - BLOOD DRAW Final Resul t [facility] [address] [address], [employer] [address] [address] * COMPREHENSIVE METABOLIC PANEL (06/16/2024 2:33 PM EDT) [facility] GLUCOSE 89 65 - 139 mg/dL [facility] Comment: ?Non-fasting reference interval UREA NITROGEN (BUN) 16 7 - 25 mg/dL [employer] CREATININE (blood) 0.74 0.50 - 1.03 mg/dL [facility] EGFR 97 > OR = 60 mL/min/1. 73m2 [employer] [facility] BUN/CREATININE RATIO SEE NOTE: [employer] [facility] Comment: ?? Not Reported: BUN and Creatinine are within ?? reference range. ? SODIUM 141 135 - 146 mmol/L [employer] [facility] POTASSIUM 4.2 3.5 - 5.3 mmol/L [employer] CHLORIDE 105 98 - 110 mmol/L [facility] CARBON DIOXIDE 29 20 - 32 mmol/L [employer] [facility] CALCIUM 9.0 8.6 - 10.4 mg/dL [facility] PROTEIN, TOTAL 7.0 6.1 - 8.1 g/dL [facility] ALBUMIN 3.8 3.6 - 5.1 g/dL [facility] GLOBULIN 3.2 1.9 - 3.7 g/dL (calc) [employer] [facility] ALBUMIN/GLOBULI N RATIO 1.2 1.0 - 2.5 (calc) [facility] BILIRUBIN, TOTAL 0.4 0.2 - 1.2 mg/dL [facility] ALKALINE PHOSPHATASE 76 37 - 153 U/L [facility] AST 19 10 - 35 U/L [employer] [facility] ALT 24 6 - 29 U/L [facility] Blood Blood / Unknown 06/16/2024 2 :33 PM EDT 06/16/2024 2:34 PM EDT Narrative [facility] - 06/19/2024 2:17 PM EDT FASTING:NO us Jessie Mesa PA-C LAB - BLOOD DRAW Edited Resu lt - Final [employer] [address] [address], [employer] [address] [address] * EYE EXAM (10/28/2023 3:00 AM EST) 10/28/2023 3:00 AM EST Jessie Mesa PA-C OTHER Edited Resul t - Final * HISTORIC COLONOSCOPY (09/28/2021 3:00 AM EST) 09/28/2021 3:00 AM EST Jessie Mesa PA-C PROCEDURES Final Result * (ABNORMAL) HEPATITIS A,B,C PANEL (07/08/2020 1:40 PM EST) HEPATITIS B SURFACE ANTIBODY NEGATIVE NEGATIVE [facility] HEPATITIS B SURFACE ANTIGEN NEGATIVE NEGATIVE [facility] Comment: Over the counter supplements containing high doses of biotin may interfere with this assay. ??If interference is suspected, patients shoud be retested after refraining from biotin supplements for 72 hours. HEPATITIS C VIRUS DIAGNOSTIC NEGATIVE NEGATIVE [facility] HEPATITIS A ANTIBODY TOTAL POSITIVE(A) NEGATIVE [facility] Comment: Over the counter supplements containing high doses of biotin may interfere with this assay. ??If interference is suspected, patients shoud be retested after refraining from biotin supplements for 72 hours. HEPATITIS B CORE ANTIBODY NEGATIVE NEGATIVE [facility] Blood Blood / Unknown 07/08/2020 1 :40 PM EST 07/08/2020 3:02 PM EST Narrative [facility] - 07/08/2020 7:07 PM EST [employer], [place] [address] [employer] - Danae Contreras MD PT ID [id number] ORD# [id number] Jessie Mesa PA-C LAB - BLOOD DRAW [place] [address], * HIV-1 & HIV-2 ANTIBODIES (07/08/2020 1:40 PM EST) Pathologist [facility] HIV 1 AND 2 ANTIBODY SCREEN NEGATIVE NEGATIVE [facility] Comment: This assay is a [...] PM EST 07/08/2020 3:02 PM EST Narrative [facility] - 07/08/2020 7:36 PM EST [employer], a member of [address] [address] [employer] - Danae Contreras MD PT ID [id number] ORD# [id number] Jessie Mesa PA-C LAB - BLOOD DRAW Final Resul t [employer] [address], from Last 3 Months or Most Recently Relevant to Health Maintenance Insurance [facility] [employer] Care Teams Chemistry Associate Relationship Specialty Start Date End Date Jessie Mesa PA-C [address] [place] [phone] PCP - General Internal Medicine 12/02/15
--- OUTSIDE RECORDS SUMMARY | 2025-01-18 11:08 | XMS_ITS | Clinical Summary ---
Author Organization [facility] [employer] Address [address] [place] [address] Phone Care Team Providers Care Mine Foreman Name Role Phone Jessie Mesa Primary Care Provider [phone] Allergies Active Allergy Reactions Criticality Noted Date [...] propionate (FLONASE) 50 mcg/actuation nasal spray 1 [place] by Nasal route daily. 024 Active esomeprazole [...] 1 TABLETA POR VIA ORAL TODOS LOS ECE AL ACOSTARSE 90 tablet 3 025 Active [...] Date Obstructive sleep apnea 12/18/2021 Overview (05/27/2024): [facility] Home sleep test 12/07/2021; weight 252; BMI [...] including hypertension and arrhythmias DM (diabetes mellitus) ([facility] V24, [facility] V28 ) 05/27/2021 Mild intermittent asthma, [...] for her to be seen by pulmonary senior talent management consultant. My suspicion is that the stress [...] any underlying arrhythmia. Thoracic aortic aneurysm (TAA) ([facility] V24) Overview (05/27/2024): Last Assessment & [...] Covid. It is difficult even with a floor sander to try to sort out what her symptoms really are especially since when you have a conversation with her and with the freight shipping agent she sits playing with her phone. Will [...] Department Care Team Description 01/12/2025 Telephone Pulmonolgy [facility] [address] [place] [address] Jessie Kirby NP Accomodation verification 12/17/2024 10:30 AM EDT [facility] [address] [facility] [address] [place] [address] Jessie Kirby NP Moderate persistent asthma without complication (Primary Dx); Obstructive sleep apnea; Primary hypertension; Glaucoma, unspecified glaucoma type, unspecified laterality; Tetralogy of Fallot; Morbid obesity (CMS/HCC V24, CMS/HCC V28) 11/18/2024 12:51 PM EDT - 11/18/2024 11:59 PM EDT Hospital Encounter [facility] [address] [place] [address] Encounter for screening mammogram for [...] PROCEDURE: HISTORICAL SUBTOTAL THYROIDECTOMY CHOLECYSTECTOMY 2010 PROCEDURE: DE CHOLECYSTECTOMY HYSTERECTOMY 1998 PROCEDURE: HISTORICAL HYSTERECTOMY; COMMENT: No ovaries removed. SALPINGOOPHORECTOMY 2012 PROCEDURE: DE LAPAROSCOPY W/RMVL ADNEXAL STRUCTURES COLONOSCOPY 09/28/2021 PROCEDURE: HISTORICAL COLONOSCOPY; COMMENT: negative Medical History Medical History Date Comments Covid-19 08/2020 DX:COVID-19 Mild intermittent asthma, uncomplicated DX:Mild intermittent asthma, uncomplicated Thoracic aortic aneurysm (TA A) ([facility]24) DX:Thoracic aortic aneurysm (TAA) (HCC) DM (diabetes mellitus) ([facility] V24, [facility] V28) DX:DM (diabetes mellitus) (H CC) Glaucoma DX:Glaucoma Hypothyroidism DX:Hypothyroidis m HTN (hypertension) DX:HTN (hyper tension) Dysphagia DX:Dysphagia Epigastric pain DX:Epigastric pa in Diabetes 1.5, managed as typ e 2 ([facility] V24, [facility] V28) DX:Diabetes 1.5, managed as type 2 ([facility]) Retained food in stomach DX:Tanisha ined [...] 8:30 AM EDT Office Visit Pulmonolgy - [place] [address] [address] [place] [phone] Jessie Kirby, WILLIAM [address] [facility] [address] [place] [address] 07/06/2025 10:00 AM EST Ancillary Procedure [facility] [address] [facility] [address] [place] [phone] Health Maintenance Due Date Last Done Comments [...] year. Mammo Location: [facility], [address] [place] [address], [id number], . -------- FINAL REPORT -------- Dictated By: Grace Pretty Dictated Date: 11/18/2024 15:56 ET Assigned Physician: Grace Pretty Reviewed and Electronically Signed By: Grace Pretty Signed Date: 11/18/2024 15:58 ET Workstation ID: [id number] Transcribed By: Self Edit Transcribed Date: 11/18/2024 [...] year. Mammo Location: [facility], [address] [place] [address], [facility], . -------- FINAL REPORT -------- Dictated By: Grace Pretty Dictated Date: 11/18/2024 15:56 ET Assigned Physician: Grace Pretty Reviewed and Electronically Signed By: Grace Pretty Signed Date: 11/18/2024 15:58 ET Workstation ID: [id number] Transcribed By: Self Edit Transcribed Date: 11/18/2024 15:56 ET Jessie HATHAWAY IMG BI PROCEDURES Final Result * Annual BMP Blood Test (07/31/2023) Annual BMP Blood Test Abstracted Historical Provider HEALTH MAINTENANCE Final Result * Hemoglobin A1c (07/31/2023) Hemoglobin A1C 0.0 % Comment:No interpretation Blood Venous blood specimen / Unknown Historical Provider LAB BLOOD ORDERABLES Eunice l Result * Lipid panel (07/31/2023) Pathologist [facility] Triglycerides 0 mg/dL Comment:No interpretation Cholesterol 0 mg/dL Comment:No interpretation HDL 0 mg/dL Comment:No interpretation LDL Cholesterol 0 mg/dL Comment:No interpretation Blood Venous blood specimen / Unknown [facility] Provider LAB BLOOD ORDERABLES Eunice l Result * Colonoscopy (09/28/2021) Pathologist [facility] Colonoscopy No interpretation , abstracted Anatomical Region Laterality Modality Other [facility] Provider HEALTH MAINTENANCE Final Result * HIV Screening (07/08/2020) [facility] HIV Screening Abstracted Result [facility] Provider HEALTH MAINTENANCE Final Result * Hepatitis C Screening (07/08/2020) [facility] Hepatitis C Screening Abstracted [facility] Provider HEALTH MAINTENANCE Final Result * Urine Albumin Creatinine Ratio (01/22/2019) Pathologist [facility] Urine Albumin Creatinine Ratio Abstracted [facility] Provider HEALTH MAINTENANCE Final Result from Last 3 Months or Most Recently Relevant to Health Maintenance Insurance MEDICAID - [place] Care Teams Mine Foreman Relationship Specialty Start Date End Date Jessie Mesa PA [address] [place] [address] PCP - General Internal Medicine 11/22/20
[2025-01-18 13:49] LABS: Free T4 (Free Thyroxine) 1.46 ng/dL (0.71-1.85); Thyroid Stimulating Hormone 1.46 uIU/mL (0.32-4.0)
[2025-01-19 17:12] LABS: Thyroglobulin 0.1 ng/mL
[2025-01-22 05:23] LABS: Thyroglobulin Antibody <1 IU/mL (<=1); Thyroglobulin Level 0.1 ng/mL
[2025-01-22 10:49] LABS: Thyroglobulin Antibodies <1 IU/mL (< or = 1)
== END 2025-01-18 10:31 | disposition home or self-care (01) ==
LOC: HO.10HDL 10:30
PROVIDERS: Visit Provider Student in an Organized Health Care Education/Training Program
DX: E89.0 Postprocedural hypothyroidism (principal); Z85.850 Personal history of malignant neoplasm of thyroid
CPT/HCPCS: 36415; 84432; 84439; 84443; 86800

== ENCOUNTER 2025-01-27 13:39 | Outpatient (REF) | payer MEDICAID, SELFPAY ==
--- NOTE | ~2025-01-27 | US_ITS ---
EXAMINATION: US THYROID CLINICAL INFORMATION: Postprocedural hypothyroidism. History of thyroid CA with total thyroidectomy. COMPARISON: None available. TECHNIQUE: Linear transducer harrison-scale and color Doppler examination with attention to the region of the thyroid and surrounding lymphoid tissues. FINDINGS: THYROID BED: Normal with no residual tissue seen. NODES: No abnormal lymphadenopathy is seen in the tissue surrounding the thyroid gland. There are reactive appearing nodes with normal morphology noted: for example right level 5A, there is a 1.2 x 0.3 x 0.3 cm normal-appearing lymph node. Left level 1B there is a 0.6 x 0.3 x 0.3 cm normal-appearing lymph node. Left level 3 there is a 1.8 x 0.5 x 0.5 cm appearing normal lymph node. US/US soft tiss head and/or neck IMPRESSION: 1. Unremarkable appearing thyroid bed post thyroidectomy. 2. No abnormal lymphadenopathy or mass within the neck. Electronically signed by: Christopher Madrid MD 01/27/2025 04:01 PM EDT
--- OUTSIDE RECORDS SUMMARY | 2025-01-27 14:33 | XMS_ITS | Clinical Summary ---
Author Organization [facility] [employer] Address [address] [place] [address] Phone Care Team Providers Care Motor Transport Inspector Name Role Phone Jessie Mesa Primary Care Provider [phone] Allergies Active Allergy Reactions Criticality Noted Date [...] propionate (FLONASE) 50 mcg/actuation nasal spray 1 [place] by Nasal route daily. 024 Active esomeprazole [...] Date Obstructive sleep apnea 12/18/2021 Overview (05/27/2024): [facility] Home sleep test 12/07/2021; weight 252; [...] including hypertension and arrhythmias DM (diabetes mellitus) ([facility] V24, [facility] V28 ) 05/27/2021 Mild intermittent asthma, uncomplicated [...] for her to be seen by pulmonary edi consultant. My suspicion is that the stress [...] any underlying arrhythmia. Thoracic aortic aneurysm (TAA) ([facility] V24) Overview (05/27/2024): Last Assessment & Plan: [...] Covid. 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 Will [...] Department Care Team Description 01/12/2025 Telephone Pulmonolgy [facility] [address] [facility] [address] [place] [address] Jessie Kirby NP Accomodation verification 12/17/2024 10:30 AM EDT [facility] [address] [facility] [address] [place] [address] Jessie Kirby NP Moderate persistent asthma without complication (Primary Dx); Obstructive sleep apnea; Primary hypertension; Glaucoma, unspecified glaucoma type, unspecified laterality; Tetralogy of Fallot; Morbid obesity (CMS/HCC V24, CMS/HCC V28) 11/18/2024 12:51 PM EDT - 11/18/2024 11:59 PM EDT Hospital [facility] [address] [place] [address] Encounter for screening mammogram for [...] PROCEDURE: HISTORICAL SUBTOTAL THYROIDECTOMY CHOLECYSTECTOMY 2010 PROCEDURE: [place] CHOLECYSTECTOMY HYSTERECTOMY 1998 PROCEDURE: HISTORICAL HYSTERECTOMY; COMMENT: No ovaries removed. SALPINGOOPHORECTOMY 2012 PROCEDURE: [place] LAPAROSCOPY W/RMVL ADNEXAL STRUCTURES COLONOSCOPY 09/28/2021 PROCEDURE: HISTORICAL COLONOSCOPY; COMMENT: negative Medical History Medical History Date Comments Covid-19 08/2020 DX:COVID-19 Mild intermittent asthma, uncomplicated DX:Mild intermittent asthma, uncomplicated Thoracic aortic aneurysm (TA A) ([facility] V24) DX:Thoracic aortic aneurysm (TAA) (HCC) DM (diabetes mellitus) ([facility] V24, [facility] V28) DX:DM (diabetes mellitus) (H CC) Glaucoma DX:Glaucoma Hypothyroidism DX:Hypothyroidis m HTN (hypertension) DX:HTN (hyper tension) Dysphagia DX:Dysphagia Epigastric pain DX:Epigastric pa in Diabetes 1.5, managed as typ e 2 ([facility] V24, [facility] V28) DX:Diabetes 1.5, managed as type 2 ([facility]) Retained food in stomach DX:Tanisha ined food [...] 8:30 AM EDT Office Visit Pulmonolgy - [place] [address] [facility] [address] [place] [phone] Jessie Kirby, WILLIAM [address] [facility] [address] [place] [address] 07/06/2025 10:00 AM EST Ancillary Procedure [facility] - [facility] [address] [facility] [address] [place] [phone] Health Maintenance Due Date Last Done Comments [...] year. Mammo Location: [facility], [address] [place] [address], [address], . -------- FINAL REPORT -------- Dictated By: Grace Pretty Dictated Date: 11/18/2024 15:56 ET Assigned Physician: Grace Pretty Reviewed and Electronically Signed By: Grace Pretty Signed Date: 11/18/2024 15:58 ET Workstation ID: [id number] Transcribed By: Self Edit Transcribed Date: 11/18/2024 [...] year. Mammo Location: [facility], [address] [place] [address], [facility], . -------- FINAL REPORT -------- Dictated By: Grace Pretty Dictated Date: 11/18/2024 15:56 ET Assigned Physician: Grace Pretty Reviewed and Electronically Signed By: Grace Pretty Signed Date: 11/18/2024 15:58 ET Workstation ID: [id number] Transcribed By: Self Edit Transcribed Date: 11/18/2024 15:56 ET Jessie HATHAWAY IMG BI PROCEDURES Final Result * Annual BMP Blood Test (07/31/2023) Annual BMP Blood Test Abstracted Historical Provider HEALTH MAINTENANCE Final Result * Hemoglobin A1c (07/31/2023) Hemoglobin A1C 0.0 % Comment:No interpretation Blood Venous blood specimen / Unknown Historical Provider LAB BLOOD ORDERABLES Eunice l Result * Lipid panel (07/31/2023) Pathologist [facility] Triglycerides 0 mg/dL Comment:No interpretation Cholesterol 0 mg/dL Comment:No interpretation HDL 0 mg/dL Comment:No interpretation LDL Cholesterol 0 mg/dL Comment:No interpretation Blood Venous blood specimen / Unknown [facility] Provider LAB BLOOD ORDERABLES Eunice l Result * Colonoscopy (09/28/2021) Pathologist [facility] Colonoscopy No interpretation , abstracted Anatomical Region Laterality Modality Other [facility] Provider HEALTH MAINTENANCE Final Result * HIV Screening (07/08/2020) [facility] HIV Screening Abstracted Result [facility] Provider HEALTH MAINTENANCE Final Result * Hepatitis C Screening (07/08/2020) [facility] Hepatitis C Screening Abstracted [facility] Provider HEALTH MAINTENANCE Final Result * Urine Albumin Creatinine Ratio (01/22/2019) Pathologist [facility] Urine Albumin Creatinine Ratio Abstracted [facility] Provider HEALTH MAINTENANCE Final Result from Last 3 Months or Most Recently Relevant to Health Maintenance Insurance MEDICAID - [place] Care Teams Motor Transport Inspector Relationship Specialty Start Date End Date Jessie Mesa PA [address] [place] [address] PCP - General Internal Medicine 11/22/20
== END 2025-01-27 13:40 | disposition home or self-care (01) ==
LOC: HO.US 13:39
PROVIDERS: PCP Physician Assistant; Visit Provider Student in an Organized Health Care Education/Training Program
DX: E89.0 Postprocedural hypothyroidism (principal); Z85.850 Personal history of malignant neoplasm of thyroid
CPT/HCPCS: 76536

== ENCOUNTER → 2025-01-27 13:41 | Outpatient (BNV) | payer MEDICAID, SELFPAY | PROVIDERS: PCP Physician Assistant; Visit Provider Radiology Diagnostic Radiology | DX: E89.0 Postprocedural hypothyroidism (principal) | CPT/HCPCS: 76536 ==

== ENCOUNTER 2025-02-01 12:26 | Outpatient (AMB) | payer MEDICAID, SELFPAY ==
[2025-02-01 13:20] VITALS: BMI 43.2
--- NOTE | 2025-02-01 13:20 | A.OFFVIS_ITS ---
VS Expanded 02/01/25 13:20 Height 5 ft 2 in Weight 236 lb 1.841 oz BMI 43.2 Intake Visit Reasons: T2DM, obesity Allergies clarithromycin Allergy (Unknown, Verified 01/18/25 09:58) Unknown liraglutide Allergy (Unknown, Verified 01/18/25 09:58) redness and itching No Known Allergies [No Known Allergies*] Allergy (Verified 01/18/25 09:58) Nutrition Presentation Details: Pt presents for MNT for T2DM Pt reports FBG this am at 152 mg/dl Pt reports challenges in reducing weight (had been losing gradually , then in 07/2024 gained 10 lbs and has not been able to lose them, during this time dm med, mounjaro was reduced from 5mg to 2.5 mg due to hypoglycemia ) pt reports physical activity has lessened to once-twice a week 20-30 minutes BS Monitoring Most Recent Diabetes Results: No Data to Display [facility] Medical History (Updated 01/18/25 @ 10:16 by Melisa Phan MD) History of thyroid cancer Diabetic nephropathy associated with type 2 diabetes mellitus Post-surgical hypothyroidism Primary thyroid cancer Diabetes type 2, controlled Surgical History History of total thyroidectomy History of total abdominal hysterectomy History of carpal tunnel release of both wrists Family History Father CVD (cardiovascular disease) Mother CVD (cardiovascular disease) Social History Household Members: None Alcohol intake: never Patient Tobacco Use Status: Never used Tobacco Assessment & Plan Assessment & Plan (1) Diabetes type 2, controlled: Code(s): E11.9 - Type 2 diabetes mellitus without complications Category: Medical Qualifiers: Diabetes mellitus complication detail: with microalbuminuria Diabetes mellitus chcf insulin use: without termite exterminator use Plan: Wt:121 Kg ( 08/2023 ), 117 kg (10/2023), 113 kg (11/2023), 113 kg (01/2024), 113 kg (01/2024), 104 kg (04/25- Pt reports having started mounjaro a month ago), 102 (07/26) , 107 kg (11/24), 6/25 Est kcal needs as per MSJ: 1900 (40% carb, 30% protein/fat) Est fluid needs as per 30 ml/d: 3100 Est prot per day as per 1 g/kg bw: 102 Recommend fiber intake : 8-10 g per day and gradually increase to 25-28 g per day for women and 35-38 g for men or as tolerated Recommend sodium intake per day : less than 2300 mg Educated patient on: ( R = reviewed V = verbalizes understanding N/R = needs review N/A = not applicable * Food sources of carbohydrate, adequate serving sizes and its role in various health conditions: R V * Differences between complex carbohydrates a simple carbohydrates, role of fiber in diet: R V * Lean protein sources of foods: R * Differences between types of fats and role in diet (mono on saturated fat fatty acids, saturated fatty acids, trans fats): R * Food sources of sodium in salt and healthy modifications for heart health in kidney health: R * Vitamins and minerals: R * Healthy plate method concept: R V * Physical activity: Benefits a precaution: R V * Dietary prevention of Hyperglycemia: V Plan Patient Instructions: Have a meal replacement in the evening - see list of options Increase physical activity to 3-4 times/week Coding Level of Care Code Nutr Indiv Subseq (91535) Diagnoses Diabetes type 2, controlled E11.9 Diabetes mellitus complication detail: with microalbuminuria Diabetes mellitus chcf insulin use: without chcf use Time Spent (min) 30
--- OUTSIDE RECORDS SUMMARY | 2025-02-01 13:26 | XMS_ITS | Clinical Summary ---
Author Organization [facility] Address [address] [place] [address] Care Team Providers Care Perinatal Tech Name Role Phone Jessie Mesa PA-C Primary Care Provider [phone] Source Comments PLEASE NOTE, if this patient [...] complication, without long-term current use of insulin ([facility]) FREESTYLE LITE LANCETS, USE TWICE A DAY [...] complication, without long-term current use of insulin ([facility]) TOME FIORELLA TABLETA POR VIA ORAL DOS VECES AL DELMA CON ALIMENTO 180 Tablet 3 08/05/20 24 Active tirzepatide (MOUNJARO) 2.5 mg/0.5 mL pnijIndications:Typ e 2 diabetes mellitus without complication, without long-term current use of insulin ([facility]),Hypoglyce romulo INYECTE 2.5 MG POR VIA SUBCUTANEA [...] Active promethazine (PHENERGAN) 6.25 mg/5 mL syrupIndications:Ac sioux cough Take 10 mL by mouth 3 [...] 06/13/2021 Body mass index (BMI) 50.0-59.9, adult ([facility]) 12/13/2020 Generalized anxiety disorder 04/06/2020 Papillary thyroid carcinoma ([facility]) 02/10/2020 Bilateral nephrolithiasis 11/15/2019 Overview (11/15/2019): 11/06/2019: CT [facility] abd[facility]pelvis at [facility]: IMPRESSION: Nonobstructing calculi within the kidneys bilaterally. No evidence of ureteral calculi or hydronephrosis. Incompletely distended urinary bladder with mild perivesicular fat stranding which may represent cystitis in the appropriate clinical settin Pelvic prolapse/mixed urinary incontinence 12/18 S/P JOHN (total abdominal hysterectomy) Dr. Giancarlo del toro 201411/06/2018 Major depressive disorder, r ecurrent episode with anxious distress ([facility]) 06/18/2018 Sciatica of right side, [facility] ED 03/17/2017 0 03/22/2017 Overview (03/22/2017): Result type: Discharge/Transfer Note Hospital Result date: March 17, 2017 14:02 Result status: Auth (Verified) Result title: Hospitalist Discharge Summary Performed by: Eh Stewart MD on March 17, 2017 14:08 Verified by: Eh Stewart MD on March 17, 2017 14:08 Encounter info: [id number], [facility], Disch Obv, 03/16/2017 - 03/17/2017 Hospitalist [...] Up with: Please follow up with your mail processing associate in one wk; Faith Mesa Within 1 [...] on March 26, 2013 17:34 Encounter info: [id number], [facility], One Time OP, 03/19/2013 - 03/19/2013 Contributor system: NUANCE * Final Report * Polysomnogram (Verified) PRELIMINARY REPORT UNLESS MANUALLY/ELECTRONICALLY SIGNED [facility] SLEEP PROGRAM [facility] Accredited by the [place] [employer] POLYSOMNOGRAM REPORT Referring Provider: Murtaza Silva Date of Service: 03/19/2013 Order ID: [id number] INTRODUCTION: This 42 year-old female is referred with history of JONATAN. The sleep questionnaire noted excessive sleepiness, difficulty sleeping and waking frequently at night, and heartburn at night.The height is 62 inches. The weight is 235.1 lbs. The BMI is 43.2. MEDICATIONS: synthroid, imitrex, ergo. DESCRIPTION: This overnight polysomnogram was done utilizing a [employer] polysomnograph machine. Four channels of EEG for [...] can be referred to sleep clinic at [facility]. Dictated by: Megan Lopes M.D. Signing Clinician: Megan Lopes M.D. Dictated: 03/25/2013 10:17:35 Transcribed: 03/25/2013 22:08:29 Transcribed by: LANE DocID: [id number] CC:Lupillo Gibson M.D. [facility] [address] [place], [address] [facility] Anastasia Hauser [facility] - Internal Medicine [address] [place] [address], [id number] Type 2 diabetes mellitus wit hout complication, without long-term current use of insulin ([facility]) 05/17/2016 Acute reaction to situational stress 05/17/2016 [...] on 03 October 2013 13:15 Verified by: Atnolin Venegas MD on 03 October 2013 13:21 Encounter info: [id number], [facility], [facility] Day[facility], 09/29/2013 - 09/29/2013 Results [...] your stomach and duodenum. Antolin Venegas MD [facility] Gastroenterology [address], [address] [facility], [address] Non morbid obesity due to excess calories 2015 Resolved Problems Problem Noted Date Diagnosed Date Resolved Date 2018 novel coronavirus disea se (COVID-19) 08/30/2020 09/12/2020 06/13/2021 Encounters Date Type Department Care Team Description 12/30/2024 1:20 PM EDT Office Visit [address] [phone] Iván Rdz NP Diaz, Wilma Acute cough (Primary Dx) 11/23/2024 Interim Notes [address] [phone] Katia Deshpande 11/18/2024 9:20 AM EDT Office Visit [address] [phone] Magdalena Epps PA-C Spider vein of lower extremity (Primary Dx); Pain in both lower extremities; Type 2 diabetes mellitus without complication, without long-term current use of insulin ([facility]); Class 3 severe obesity due to excess calories without serious comorbidity with body mass index (BMI) of 45.0 to 49.9 in adult ([facility]); Hypothyroidism (acquired) from Last 3 Months [...] 10/10/2023 10/10/2022, 09/29/2021, 05/06/2020, Additional history exists [id number] ( season) 2024 021, 03/31/2021 Retinopathy Screening [...] Procedure Name Priority Date/Time Associated Diagnosis Comments THYROID ULTRASOUND 01/27/2025 3: 00 AM EDT ID NOW STREP A2 (POCT) Routine 2:04 PM EDT Acute cough COVID-19, ID NOW, CHICAS (POCT) Routine 12/30/2024 2:04 PM EDT Acute cough TSH W/RFLX FREE T4 Routine 11/18/2024 9: 55 AM EDT Hypothyroidism (acquired) HGA1C W/EAG Routine 11/18/2024 9:55 AM EDT Type 2 diabetes mellitus without complication, without long-term current use of insulin ([facility]) Class 3 severe obesity due to excess calories without serious comorbidity with body mass index (BMI) of 45.0 to 49.9 in adult ([facility]) GLUCOSE FASTING Routine 11/18/2024 9:55 AM EDT Type 2 diabetes mellitus without complication, without long-term current use of insulin ([facility]) Class 3 severe obesity due to excess calories without serious comorbidity with body mass index (BMI) of 45.0 to 49.9 in adult ([facility]) HISTORIC MAMMOGRAM 11/18/2024 3: 00 AM EDT REFERRAL SCANNED DOCUMENT 11/05/2024 3:00 AM EST COMPREHENSIVE METABOLIC PANEL Routine 06/16/2024 2:33 PM EDT Hypothyroidism (acquired) Non morbid obesity due to excess calories Type 2 diabetes mellitus without complication, without long-term current use of insulin ([facility]) Lumbar disc disease Routine general medical examination at a health care facility [place] and fatigue LIPID PANEL Routine 06/16/2024 2:33 PM EDT Hypothyroidism (acquired) Non morbid obesity due to excess calories Type 2 diabetes mellitus without complication, without long-term current use of insulin ([facility]) Lumbar disc disease Routine general medical examination at a health care facility [place] and fatigue MICROALBUMIN/CREATININ E RATIO, URINE, RANDOM Routine 06/16/2024 2:33 PM EDT Hypothyroidism (acquired) Non morbid obesity due to excess calories Type 2 diabetes mellitus without complication, without long-term current use of insulin ([facility]) Lumbar disc disease Routine general medical examination at a health care facility [place] and fatigue EYE EXAM 10/28/2023 3:00 AM EST HISTORIC COLONOSCOPY 09/28/2021 3:00 AM EST ANTIBODY HIV-1&HIV-2 SINGLE RESULT Routine 07/08/2020 1:40 PM EST Type 2 diabetes mellitus without complication, without long-term current use of insulin ([facility]) Non morbid obesity due to excess calories HEPATITIS A,B,C PANEL Routine 07/08/2020 1:40 PM EST Type 2 diabetes mellitus without complication, without long-term current use of insulin ([facility]) Non morbid obesity due to excess calories from Last 3 Months or Most Recently Relevant to Health Maintenance Results * THYROID ULTRASOUND (01/27/2025 3:00 AM EDT) 01/27/2025 3:00 AM EDT us Jessie Mesa PA-C IMG CT Final Result * COVID-19, ID NOW, CHICAS (POCT) (12/30/2024 2:04 PM EDT) COVID-19 NEGATIVE NEGATIVE [facility] BACK OFFICE POCT INTERNAL CONTROL PASS PASS [facility] BACK OFF[facility] POCT Swab Nasal structure / Unknown 12/30/2024 2:04 PM EDT Iván Rdz [facility] LAB BODY FLUIDS AND STOOLS AMBU LATORY Final Result [facility]- BACK OFFICE POCT * ID NOW STREP A2 (POCT) (12/30/2024 2:04 PM EDT) STREP A NEGATIVE NEGATIVE [facility]- BACK OFFICE POCT INTERNAL CONTROL PASS PASS [facility]- BACK OFFICE POCT Swab Structure of anterior portion of neck / Unknown 12/30/2024 2:04 PM EDT Iván Rdz CARPET RENOVATOR LAB - MICROBIOLOGY AMBULATORY F inal Result Performing Organization Address [facility] Co de Phone Number [facility]- BACK OFFICE POCT * (ABNORMAL) HGA1C W/EAG (11/18/2024 9:55 AM EDT) HEMOGLOBIN A1C 6.3(H) <5.7 % of total Hgb [employer] Comment: For someone without known diabetes, a [...] diabetes for children. EAG (MG/DL) 134 mg/dL [employer] EAG (MMOL/L) 7.4 mmol/L [employer] Blood Blood / Unknown 11/18/2024 9 :55 AM EDT 11/18/2024 9:56 AM EDT Narrative [facility] - 11/19/2024 4:14 AM EDT FASTING:YES Magdalena Epps PA-C LAB - BLOOD DRAW Edited Resu lt - Final [facility] [address] [address], [place] [facility] [address] [address] * (ABNORMAL) GLUCOSE FASTING (11/18/2024 9:55 AM EDT) Pathologist [facility] GLUCOSE, FASTING (P) 116(H) 65 - 99 mg/dL [employer] Comment: ?Fasting reference interval For someone without known diabetes, a glucose value between 100 and 125 mg/dL is consistent with prediabetes and should be confirmed with a follow-up test. Blood Blood / Unknown 11/18/2024 9 :55 AM EDT 11/18/2024 9:56 AM EDT Narrative [facility] - 11/19/2024 4:14 AM EDT FASTING:YES Magdalena Epps PA-C LAB - BLOOD DRAW Final Resul t [facility] [address] [place] [address], [employer] [address] [address] * TSH W/RFLX FREE T4 (11/18/2024 9:55 AM EDT) [facility] TSH W/REFLEX TO FT4 1.51 0.40 - 4.50 mIU/L [employer] Comment: ?Reference Range ?> or = 20 Years ??0.40-4.50 ? Ranges ?First trimester ?0.26-2.66 ?Second trimester ?? 0.55-2.73 ?Third trimester ?0.43-2.91 Blood Blood / Unknown 11/18/2024 9 :55 AM EDT 11/18/2024 9:56 AM EDT Narrative [facility] - 11/19/2024 4:14 AM EDT FASTING:YES Magdalena Epps PA-C LAB - BLOOD DRAW Edited Resu lt - Final [facility] [address] [address], [employer] [place] [facility] [address] [place] [address] * HISTORIC MAMMOGRAM (11/18/2024 3:00 AM EDT) 11/18/2024 3:00 AM EDT Jessie Mesa PA-C IMG MAMMO Final Result * REFERRAL SCANNED DOCUMENT (11/05/2024 3:00 AM EST) 11/05/2024 3:00 AM EST us Jessie Mesa PA-C SCAN REFERRAL Final Result * MICROALBUMIN/CREATININE RATIO, URINE, RANDOM (06/16/2024 2:33 PM EDT) CREATININE, RANDOM URINE 108 20 - 275 mg/dL [employer] [facility] MICROALBUMIN <0.2 mg/dL [facility] Comment: Reference Range Not established MICROALBUMIN/CREA TININE RATIO, RANDOM URINE NOTE <30 [facility] Comment: NOTE: The urine albumin value is [...] PM EDT 06/16/2024 2:34 PM EDT Narrative [facility] - 06/19/2024 2:17 PM EDT FASTING:NO us Jessie Mesa PA-C LAB URINE AMBULATORY Final R esult Performing Organization Address City/[facility]/ZIP Co de Phone Number [employer] [address] [address], [employer] [address] [address] * (ABNORMAL) LIPID PANEL (06/16/2024 2:33 PM EDT) [facility] CHOLESTEROL, TOTAL 144 <200 mg/dL [facility] HDL CHOLESTEROL 56 > OR = 50 mg/dL [facility] TRIGLYCERIDES 152(H) <150 mg/dL [employer] [facility] LDL-CHOLESTEROL 65 99 mg/dL (calc) [employer] [place] [facility] Comment: Reference range: <100 Desirable range <100 mg/dL for primary prevention; ?? <70 mg/dL for patients with CHD or diabetic patients with > or = 2 CHD risk factors. LDL-C is now calculated using the Luis Alberto-Spencer calculation, which is a validated novel method providing better accuracy than the Friedewald equation in the estimation of LDL-C. Luis Alberto SS et al. MARIA FERNANDA. 2013;310(19): 8104-7507 (http://education.[employer]iBeat/faq/WFQ558) CHOL/HDLC RATIO 2.6 <5.0 (calc) [facility] NON-HDL CHOLESTEROL 88 <130 mg/dL (calc) [facility] Comment: For patients with diabetes plus 1 major ASCVD risk factor, treating to a non-HDL-C goal of <100 mg/dL (LDL-C of <70 mg/dL) is considered a therapeutic option. Blood Blood / Unknown 06/16/2024 2 :33 PM EDT 06/16/2024 2:34 PM EDT Narrative [facility] - 06/19/2024 2:17 PM EDT FASTING:NO us Jessie Mesa PA-C LAB - BLOOD DRAW Final Resul t Performing Organization Address City/[facility]/ZIP Co de Phone Number [facility] [address] [address], [employer] [facility] [address] [place] [address] * COMPREHENSIVE METABOLIC PANEL (06/16/2024 2:33 PM EDT) GLUCOSE 89 65 - 139 mg/dL [employer] [facility] Comment: ?Non-fasting reference interval UREA NITROGEN (BUN) 16 7 - 25 mg/dL [employer] [facility] CREATININE (blood) 0.74 0.50 - 1.03 mg/dL [employer] [facility] EGFR 97 > OR = 60 mL/min/1. 73m2 [employer] [facility] BUN/CREATININE RATIO SEE NOTE: [facility] Comment: ?? Not Reported: BUN and Creatinine are within ?? reference range. ? SODIUM 141 135 - 146 mmol/L [employer] [facility] POTASSIUM 4.2 3.5 - 5.3 mmol/L [employer] [facility] CHLORIDE 105 98 - 110 mmol/L [employer] [facility] CARBON DIOXIDE 29 20 - 32 mmol/L [employer] [facility] CALCIUM 9.0 8.6 - 10.4 mg/dL [employer] [facility] PROTEIN, TOTAL 7.0 6.1 - 8.1 g/dL [employer] [facility] ALBUMIN 3.8 3.6 - 5.1 g/dL [employer] [facility] GLOBULIN 3.2 1.9 - 3.7 g/dL (calc) [employer] [facility] ALBUMIN/GLOBULI N RATIO 1.2 1.0 - 2.5 (calc) [employer] [facility] BILIRUBIN, TOTAL 0.4 0.2 - 1.2 mg/dL [employer] [facility] ALKALINE PHOSPHATASE 76 37 - 153 U/L [employer] [facility] AST 19 10 - 35 U/L [employer] [facility] ALT 24 6 - 29 U/L [employer] [facility] Blood Blood / Unknown 06/16/2024 2 :33 PM EDT 06/16/2024 2:34 PM EDT Narrative [facility] - 06/19/2024 2:17 PM EDT FASTING:NO us Jessie Mesa PA-C LAB - BLOOD DRAW Edited Resu lt - Final [facility] [address] [address], [facility] [address] [place] [address] * EYE EXAM (10/28/2023 3:00 AM EST) 10/28/2023 3:00 AM EST Jessie Mesa PA-C OTHER Edited Resul t - Final * HISTORIC COLONOSCOPY (09/28/2021 3:00 AM EST) 09/28/2021 3:00 AM EST Jessie Mesa PA-C PROCEDURES Final Result * (ABNORMAL) HEPATITIS A,B,C PANEL (07/08/2020 1:40 PM EST) HEPATITIS B SURFACE ANTIBODY NEGATIVE NEGATIVE [facility] HEPATITIS B SURFACE ANTIGEN NEGATIVE NEGATIVE [facility] Comment: Over the counter supplements containing high doses of biotin may interfere with this assay. ??If interference is suspected, patients shoud be retested after refraining from biotin supplements for 72 hours. HEPATITIS C VIRUS DIAGNOSTIC NEGATIVE NEGATIVE [facility] HEPATITIS A ANTIBODY TOTAL POSITIVE(A) NEGATIVE [facility] Comment: Over the counter supplements containing high doses of biotin may interfere with this assay. ??If interference is suspected, patients shoud be retested after refraining from biotin supplements for 72 hours. HEPATITIS B CORE ANTIBODY NEGATIVE NEGATIVE [facility] Blood Blood / Unknown 07/08/2020 1 :40 PM EST 07/08/2020 3:02 PM EST Narrative [facility] - 07/08/2020 7:07 PM EST [employer] [address] Manufacturing Plant Controller - Danae Contreras MD [place] ID [id number] ORD# [id number] Jessie Mesa PA-C LAB - BLOOD DRAW Edited Resu lt - Final [address] [address], [place] [phone] * HIV-1 & HIV-2 ANTIBODIES (07/08/2020 1:40 PM EST) [facility] Signature HIV 1 AND 2 ANTIBODY SCREEN NEGATIVE NEGATIVE [facility] Comment: This assay is a 4th generation [...] PM EST 07/08/2020 3:02 PM EST Narrative [facility] - 07/08/2020 7:36 PM EST [employer], a member of [address] [address] Manufacturing Plant Controller - Danae Contreras MD PT ID [id number] ORD# [id number] us Jessie Mesa PA-C LAB - BLOOD DRAW Final Resul t Performing Organization Address [facility] Co de Phone Number [address] [address], [place] [phone] from Last 3 Months or Most Recently Relevant to Health Maintenance Insurance [place] [employer] [facility] [employer] Care Teams Perinatal Tech Relationship Specialty Start Date End Date Jessie Mesa PA-C [address] [place] [address] PCP - General Internal Medicine 12/02/15
== END 2025-02-01 13:53 | disposition home or self-care (01) ==
LOC: HO.ENCR 12:26
PROVIDERS: PCP Physician Assistant; Visit Provider Dietitian, Registered
DX: E11.9 Type 2 diabetes mellitus without complications (principal)

== ENCOUNTER → 2025-02-01 12:26 | Outpatient (BNVA) | payer MEDICAID, SELFPAY | PROVIDERS: PCP Physician Assistant; Visit Provider Dietitian, Registered | DX: E11.9 Type 2 diabetes mellitus without complications (principal); E66.9 Obesity, unspecified; Z71.3 Dietary counseling and surveillance; Z68.41 Body mass index [BMI] 40.0-44.9, adult; Z79.899 Other long term (current) drug therapy | CPT/HCPCS: 97803 ==

== ENCOUNTER 2025-04-30 10:45 | Outpatient (AMB) | payer MEDICAID, SELFPAY ==
--- NOTE | 2025-04-30 10:49 | A.OFFVIS_ITS ---
Vital Signs 3 04/30/25 10:51 Height 5 ft 2 in Weight 242 lb 11.663 oz BMI 44.4 BP 108/70 Blood Pressure Location Rt brachial Position Sitting Pulse 72 Pulse Source Pulse Oximeter Pulse Oximetry (%) 98 Oxygen Delivery Method Room Air Intake Visit Reasons: History of thyroid cancer Intake Note: Patient present today with History of thyroid cancer. Business Continuity Planning Director Required: Yes Business Continuity Planning Director Language: Calibration Checker Services: Business Continuity Planning Director Present Business Continuity Planning Director Name: Ant [id number] Information Interpreted: non-clinical & clinical Accompanied by: Self / Same As Patient Allergies clarithromycin Allergy (Unknown, Verified 04/30/25 10:56) Unknown liraglutide Allergy (Unknown, Verified 04/30/25 10:56) redness and itching No Known Allergies (No Known Allergies*) Allergy (Verified 04/30/25 10:56) Medication List - Last Reconciled 04/30/25 by Melisa Phan MD albuterol sulfate 90 mcg/actuation (Proventil HFA) 2 puffs inhalation Q4H PRN alcohol swabs (Alcohol Prep Pads) 1 pad topical .3 times a day 30 days amoxicillin 875 mg PO BID cetirizine 10 mg PO DAILY PRN cholecalciferol (vitamin D3) 50 mcg PO DAILY famotidine 20 mg PO BID PRN FreeStyle Lite Strips (blood sugar diagnostic) 1 strip miscellaneous TID 30 days NS lancets (FreeStyle Lancets) 3 times a day levothyroxine 150 mcg PO DAILY loratadine 10 mg PO DAILY montelukast 10 mg PO BEDTIME tamsulosin 0.4 mg PO DAILY timolol maleate 0.5% 1 drp ophthalmic (eye) QAM tirzepatide (Mounjaro) 2.5 mg subcut QWEEK HPI Comments Details: 54 year female today for follow-up visit, Today for follow-up for papillary thyroid cancer status post total thyroidectomy 04/13/[address] Bassam Morejon at [facility], found to have multifocal PTC with 1 cm classic variant of PTC, in the left lobe, to more foci within 0.1 mm of the anterior margin, with extranodal extension 4/8 positive lymph nodes with largest metastatic deposit of 0.3 cm, AJCC stage I, pT1a, N1a MX, RAIN initial intermediate risk of recurrence Thyrogen stimulated remnant ablation with 50 mCi of iodine 131 on 07/13/2020. Currently RAIN excellent response to therapy HPI of PTC in detail Had past medical history of hypothyroidism and thyroid nodules 02/04/2020: FNA of the left thyroid nodule consistent with PTC [place]ar[place] category 6 04/13/2020: Status post total thyroidectomy by Dr. Bassam Morejon at [facility] Histology was consistent with classic variant papillary thyroid cancer, left lobe, size 1.0 x 0.9 x 0.6 cm. No evidence of extrathyroidal extension. No angioinvasion. No lymphatic invasion. Two more extent within 0.1 mm of the anterior margin. Patient had 4 positive lymph nodes from 8 examined. Largest metastatic deposits 0.3 cm, extranodal extension present. AJCC stage I (PT1a, N1a, MX) . RAIN initial intermediate risk of recurrence based on size of lymph node 07/13/20: Status post radioactive iodine for remnant ablation She had Thyrogen stimulated remnant ablation with 50 mCi of iodine 131 on 07/13/2020, post ablation scan Showed residual radioiodine activity within the neck consistent with function in thyroid tissue or local disease. No evidence of avid iodine distant metastatic lesions 07/13/2020: TSH 98.18, TG 1.6, TG antibody less than 1 05/03/2022: Ultrasound neck showed normal looking lymph nodes 03/29/23 : [place] [facility] [place] neck did not show any signs of recurrence , Labs from [facility] [place] showed TSH of 3.14, with free T4 of 1.25, TG 0.27, TG antibody less than 0.4 Dr. Guajardo's assessment: Interval history She is currently on levothyroxine 150 mcg daily. She is 100% adherent she has a good method of administration. Interval history 01/18/2025: TSH 1.46, free T4 1.46, TG 0.1, TG antibody less than 1 01/27/2025: Ultrasound neck showed bilateral normal-appearing lymph nodes She denies cold or heat intolerance, , diarrhea, positive constipation, imsomnia, fatigue,gained 10 lbs sine Jul 2024 Some trouble swallowing since before thyroid surgery which she says is persistent No voice hoarseness Family History: She denies family history of thyroid cancer. No history of head and neck radiation Physical exam General: sitting comfortably in no acute distress HEENT: normocephalic/atraumatic, Neck: supple, symmetrical Cardiac: normal heart sounds Pulm: normal breath sounds B/L, no added breath sounds Abd: not distended, no tenderness Extremities: no edema, no signs of myxedema Laboratory Tests Laboratory Tests 01/30/20 04/21/20 07/13/20 08:20 12:30 07:15 TSH 98.18 H Free T4 1.15 1.44 Thyroglobulin 1.6 H Thyroglobulin Antibody <1 <1 <1 07/22/20 10/24/20 03/23/21 07:51 10:35 11:20 TSH 8.24 H 0.21 L 0.14 L Free T4 1.36 1.54 Thyroglobulin 0.5 H 0.2 H 0.2 H Thyroglobulin Antibody <1 <1 <1 03/08/22 06/28/22 11/01/22 07:53 08:35 14:36 TSH 0.05 L 0.46 1.71 Free T4 1.21 1.33 1.41 Thyroglobulin 0.3 H 0.1 L Thyroglobulin Antibody <1 08/14/23 02/11/24 07/20/24 10:56 12:12 11:27 TSH 3.59 0.75 2.65 Free T4 1.17 1.26 1.28 Thyroglobulin 0.2 H Thyroglobulin Antibody <1 07/20/24 Unknown TSH Free T4 Thyroglobulin 0.2 H Thyroglobulin Antibody <1 Laboratory Tests 01/18/25 10:33 TSH 1.46 Free T4 1.46 Thyroglobulin 0.1 H Thyroglobulin Antibody <1 US THYROID 01/27/25 CLINICAL INFORMATION: Postprocedural hypothyroidism. History of thyroid CA with total thyroidectomy. COMPARISON: None available. TECHNIQUE: Linear transducer harrison-scale and color Doppler examination with attention to the region of the thyroid and surrounding lymphoid tissues. FINDINGS: THYROID BED: Normal with no residual tissue seen. NODES: No abnormal lymphadenopathy is seen in the tissue surrounding the thyroid gland. There are reactive appearing nodes with normal morphology noted: for example right level 5A, there is a 1.2 x 0.3 x 0.3 cm normal-appearing lymph node. Left level 1B there is a 0.6 x 0.3 x 0.3 cm normal-appearing lymph node. Left level 3 there is a 1.8 x 0.5 x 0.5 cm appearing normal lymph node. US/US soft tiss head and/or neck IMPRESSION: 1. Unremarkable appearing thyroid bed post thyroidectomy. 2. No abnormal lymphadenopathy or mass within the neck. Electronically signed by: Christopher Madrid MD 01/27/2025 04:01 PM EDT RP EXAMINATION: 05/13/22 US SOFT TISSUE HEAD/NECK CLINICAL INFORMATION: Nontoxic multinodular goiter. Thyroidectomy in 04/2020 per the patient. COMPARISON: Thyroid ultrasound 01/27/2020. TECHNIQUE: Linear transducer harrison-scale and color Doppler examination with attention to the region of the thyroid bed and surrounding tissue. FINDINGS: THYROIDECTOMY BED: No residual thyroid tissue is appreciated within the thyroidectomy bed. On the right side level 3 there is a 1.0 x 0.3 x 0.6 cm lymph node without definite fatty cleft, however no cortical thickening or lobulation is appreciated. On the left side level 3 there is a normal-appearing lymph node measuring 2.0 x 0.6 x 1.4 cm in size and has a normal fatty hilum/cleft and no evidence of cortical thickening. US/US thyroid IMPRESSION: No residual thyroid tissue/mass identified within the thyroidectomy bed. ? Bilateral level 3 lymph nodes without evidence of cortical thickening or lobulation. [facility] Medical History (Updated 01/18/25 @ 10:16 by Melisa Phan MD) History of thyroid cancer Diabetic nephropathy associated with type 2 diabetes mellitus Post-surgical hypothyroidism Primary thyroid cancer Diabetes type 2, controlled Surgical History History of total thyroidectomy History of total abdominal hysterectomy History of carpal tunnel release of both wrists Family History Father CVD (cardiovascular disease) Mother CVD (cardiovascular disease) Social History Household Members: None Alcohol intake: never Patient Tobacco Use Status: Never used Tobacco Assessment & Plan Assessment & Plan (1) History of thyroid cancer: Code(s): Z85.850 - Personal history of malignant neoplasm of thyroid Category: Medical Plan: 54 year female today for follow-up visit, Today for follow-up for papillary thyroid cancer status post total thyroidectomy 04/13/[address] Bassam Morejon at [facility], found to have multifocal PTC with 1 cm classic variant of PTC, in the left lobe, two more foci within 0.1 mm of the anterior margin, with extranodal extension 4/8 positive lymph nodes with largest metastatic deposit of 0.3 cm, AJCC stage I, pT1a, N1a MX, RAIN initial intermediate risk of recurrence. Thyrogen stimulated remnant ablation with 50 mCi of iodine 131 on 07/13/2020 Most recent ultrasound neck December 2024 showed normal-appearing lymph nodes bilaterally. TG levels undetectable most recently done December 2024. Based on this information she is Currently RAIN excellent response to therapy, though her non stimulated TG levels have been a little over 0.2 in the past, now they are undetectable. At this point we will liberalize her TSH goal to 0.5-2. 01/18/2025: TSH 1.46, free T4 1.46, TG 0.1, TG antibody less than 1 Plan: -continue levothyroxine 150 mcg daily -ordered TSH, free T4, TG and TG antibodies to be done prior to follow up in 1 year in April 2026 -consider doing next ultrasound neck at 3 year interval which should be in January 2028 (2) Post-surgical hypothyroidism: Code(s): E89.0 - Postprocedural hypothyroidism Category: Medical Plan: Based on this information she is Currently RAIN excellent response to therapy, though her non stimulated TG levels have been a little over 0.2 in the past, now they are undetectable. At this point we will liberalize her TSH goal to 0.5-2. 01/18/2025: TSH 1.46, free T4 1.46, TG 0.1, TG antibody less than 1 Plan: -continue levothyroxine 150 mcg daily -ordered TSH, free T4, TG and TG antibodies to be done prior to follow up in 1 year in April 2026 Plan I spent 30 minutes in reviewing the record, seeing the patient and documenting in the medical record. Orders: Orders 2 Thyroid Stimulating Hormone 03/14/26 E89.0 - Postprocedural hypothyroidism, Z85.850 - Personal history of malignant neoplasm of thyroid Free T4 (Free Thyroxine) 03/14/26 E89.0 - Postprocedural hypothyroidism, Z85.850 - Personal history of malignant neoplasm of thyroid Thyroglobulin 03/14/26 E89.0 - Postprocedural hypothyroidism, Z85.850 - Personal history of malignant neoplasm of thyroid Thyroglobulin Antibodies 03/14/26 E89.0 - Postprocedural hypothyroidism, Z85.850 - Personal history of malignant neoplasm of thyroid Thyroglobulin Tumor Marker 03/14/26 E89.0 - Postprocedural hypothyroidism, Z85.850 - Personal history of malignant neoplasm of thyroid Medications: Refilled 2 levothyroxine 150 mcg PO DAILY 90 tabs 4RF Patient Instructions: Continue levothyroxine 150 mcg daily Do blood work 2 weeks prior to your next appointment in 1 year Contin?e con levotiroxina 150 mcg al d?a. Realice an?lisis de hugo 2 semanas antes de roldan pr?xima kolby en 1 a?o. Coding Level of Care Code Est Pt Level 4 (78780) Complex EM visit Add On G2211 Diagnoses History of thyroid cancer Z85.850 Post-surgical hypothyroidism E89.0 Time Spent (min) 30
[2025-04-30 10:51] VITALS: BP 108/70; PULSE 72; O2SAT 98; BMI 44.4
--- OUTSIDE RECORDS SUMMARY | 2025-04-30 11:23 | XMS_ITS | Clinical Summary ---
Author Organization [facility] Address [address] [place] [address] Care Team Providers Care Field Assembly Supervisor Name Role Phone Jessie Mesa PA-C Primary Care Provider [phone] Source Comments PLEASE NOTE, if this patient [...] 05/17/2016 TACHYCARDIA Liraglutide Rash 08/10/2019 Rash Medications tamsulosin (FLOMAX) 0.4 mg 24 hr capsuleIndications :Bilateral nephrolithiasis TAKE 1 CAPSULE BY MOUTH ONCE DAILY FOR KIDNEY STONE 90 Capsule 1 12/04/19 24 Active blood sugar diagnostic (FREESTYLE LITE STRIPS) strips USE SHUKRI LO INDICADO DOS VECES AL DELMA 100 Each 11 05/09/20 24 Active metFORMIN (GLUCOPHAGE) 500 mg tabletIndications: Type 2 diabetes mellitus without complication, without long-term current use of insulin (CMS & HHS-HCC) TOME FIORELLA TABLETA POR VIA ORAL DOS VECES AL DELMA CON ALIMENTO 180 Tablet 3 08/05/20 24 Active compr.stocking,kne e,long,largeIndica tions:Spider vein of lower extremity Compression stockings for daily use 15-20, BMI 45.70, Weight: 234 lb, Height: 5'1 1 Each 11/19/19 25 Active famotidine (PEPCID) 20 mg tabletIndications: Dyspepsia TOME FIORELLA TABLETA POR VIA ORAL DOS VECES AL DELMA CUANDO SEA NECESARIO 180 Tablet 3 11/30/19 25 Active promethazine (PHENERGAN) 6.25 mg/5 mL syrupIndications:A cute cough Take 10 mL by mouth 3 (three) times daily as needed for other reason (cough) 240 mL 12/31/19 25 Active montelukast (SINGULAIR) 10 mg tablet Take 1 Tablet by mouth nightly at bedtime 12/31/19 25 Active fluticasone propion-salmeteroL (ADVAIR) 250-50 mcg/dose diskus inhaler Inhale 1 Puff into the lungs 2 (two) times daily 12/31/19 25 Active MISCELLANEOUS MEDICAL SUPPLY MISCIndications:Ve nous insufficiency by miscellaneous route daily 20-30 mm HG knee high compression stockings, disp 2 pairs, dx venous insufficiency. 2 Each 04/14/20 25 Active levothyroxine 150 mcg tabletIndications: Hypothyroidism (acquired) Take 1 Tablet by mouth every morning before breakfast. 90 Tablet 3 04/14/20 25 Active tirzepatide (MOUNJARO) 5 mg/0.5 mL pnijIndications:No n morbid obesity due to excess calories,Type 2 diabetes mellitus without complication, without long-term current use of insulin ([facility]) Inject 5 mg into the skin once a week. 6 mL 2 04/14/20 25 Active traMADoL (ULTRAM) 50 mg tabletIndications: Lumbar disc disease Take 1 Tablet by mouth 2 (two) times daily as needed for pain. 40 Tablet 04/14/20 25 Active acetaminophen (TYLENOL 8 HOUR) 650 mg CR tabletIndications: Fever, unspecified fever cause Take 1 Tablet by mouth every 8 (eight) hours as needed for pain 30 Tablet 10/09/19 22 025 Disconti nued(Out dated-Re moved from Med List (E-Cance l Not Sent)) PROAIR HFA 90 mcg/actuation inhalerIndications :2019 novel coronavirus disease (COVID-19) INHALE 2 PUFFS INTO THE LUNGS EVERY 4 HOURS NEEDED FOR COUGH OR WHEEZING 8.5 g 5 05/29/20 22 025 Disconti nued(Out dated-Re moved from Med List (E-Cance l Not Sent)) cetirizine (ZYRTEC) 10 mg tabletIndications: Seasonal allergies TAKE 1 TABLET BY MOUTH ONCE DAILY NEEDED FOR ALLERGIES 90 Tablet 09/27/19 23 025 Disconti nued(Out dated-Re moved from Med List (E-Cance l Not Sent)) esomeprazole (NEXIUM) [address] capsuleIndications :Dyspepsia Take 1 Capsule by mouth every morning before breakfast 90 Capsule 2 01/17/20 23 025 Disconti nued(Out dated-Re moved from Med List (E-Cance l Not Sent)) FREESTYLE LANCETS 28 gaugeIndications:T ype 2 diabetes mellitus without complication, without long-term current use of insulin ([facility]) FREESTYLE LITE LANCETS, USE TWICE A DAY DX E11.9 100 Each 11 03/04/20 23 025 Disconti nued(Out dated-Re moved from Med List (E-Cance l Not Sent)) alcohol swabs Use bid Dx E11.9 100 Each 11 04/03/20 23 025 Disconti nued(Out dated-Re moved from Med List (E-Cance l Not Sent)) levothyroxine 137 mcg tablet Take 1 Tablet by mouth once daily 90 Tablet 3 05/27/20 23 025 Disconti nued(The rapy complete d/Not needed) lidocaine (XYLOCAINE) 5 % ointIndications:Le ft lumbar radiculopathy Apply topically 30 g 6 07/31/20 23 025 Disconti nued(Out dated-Re moved from Med List (E-Cance l Not Sent)) diclofenac sodium (VOLTAREN) 1 % gelIndications:Lef t lumbar radiculopathy APPLY 2 G TOPICALLY 2 (TWO) TIMES DAILY. 100 g 11 08/03/20 23 025 Disconti nued(Out dated-Re moved from Med List (E-Cance l Not Sent)) traMADoL (ULTRAM) 50 mg tabletIndications: Lumbar disc disease Take 1 Tablet by mouth 2 (two) times daily as needed for pain 40 Tablet 05/01/20 24 025 Disconti nued(Reo rder (E-Cance l Not Sent)) tirzepatide (MOUNJARO) 2.5 mg/0.5 mL pnijIndications:Ty pe 2 diabetes mellitus without complication, without long-term current use of insulin ([facility]),Hypoglyce romulo INYECTE 2.5 MG POR VIA SUBCUTANEA SEMANALMENTE 6 mL 3 11/14/19 25 025 Disconti nued(The rapy complete d/Not needed) traMADoL (ULTRAM) 50 mg tabletIndications: Lumbar disc disease Take 1 Tablet by mouth 2 (two) times daily as needed for pain. 40 Tablet 04/14/20 25 025 Disconti nued(Reo rder (E-Cance l Not Sent)) Hospital, Clinic, or Other Facility Administered Medication Ordered Dose Route Frequency Start Date End Date Status ketorolac (Toradol) injection 30 mgIndications:Right lumbar radiculopathy 30 mg IM Once 04/14/2025 04/14/2025 Ended Active Problems Problem Noted Date Diagnosed Date Other specified glaucoma 07/31/2023 Lumbar disc disease 04/25/2023 Peripheral neuropathic pain 01/04/2022 Seasonal allergies 01/04/2022 History of COVID-19 08/30/2020 06/13/2021 Body mass index (BMI) 50.0-59.9, adult ([facility]) 12/13/2020 Generalized anxiety disorder 04/06/2020 Papillary thyroid carcinoma ([facility]) 01/31 Bilateral nephrolithiasis 11/15/2019 Overview (11/15/2019): 11/06/2019: CT of abd/pelvis at [facility]: IMPRESSION: Nonobstructing calculi within the kidneys bilaterally. No evidence of ureteral calculi or hydronephrosis. Incompletely distended urinary bladder with mild perivesicular fat stranding which may represent cystitis in the appropriate clinical settin Pelvic prolapse/mixed urinary incontinence 12/18 S/P JOHN (total abdominal hysterectomy) Dr. Giancarlo del toro 201411/06/2018 Major depressive disorder, r ecurrent episode with anxious distress ([facility] V[facility]) 06/18/2018 Sciatica of right side, [facility] ED 03/17/2017 0 03/22/2017 Overview (03/22/2017): Result type: Discharge/Transfer Note Hospital Result date: March 17, 2017 14:02 Result status: Auth (Verified) Result title: Hospitalist Discharge Summary Performed by: Eh Stewart MD on March 17, 2017 14:08 Verified by: Eh Stewart MD on March 17, 2017 14:08 Encounter info: [id number], [facility], Disch Obv, 03/16/2017 - 03/17/2017 Hospitalist [...] Up with: Please follow up with your production inspector in one wk; Faith Mesa Within 1 [...] on March 26, 2013 17:34 Encounter info: [id number], [facility], 03/19/2013 - 03/19/2013 Contributor system: NUANCE * Final Report * Polysomnogram (Verified) PRELIMINARY REPORT UNLESS MANUALLY/ELECTRONICALLY SIGNED [facility] SLEEP [facility] Accredited by the [place] [employer] POLYSOMNOGRAM REPORT Referring Provider: Murtaza Silva Date of Service: 03/19/2013 Order ID: [id number] INTRODUCTION: This 42 year-old female is referred with history of JONATAN. The sleep questionnaire noted excessive sleepiness, difficulty sleeping and waking frequently at night, and heartburn at night.The height is 62 inches. The weight is 235.1 lbs. The BMI is 43.2. MEDICATIONS: synthroid, imitrex, ergo. DESCRIPTION: This overnight polysomnogram was done utilizing a [employer] polysomnograph machine. Four channels of EEG for [...] PLM arousal index of 0.0 per hour. PATIENT S ASSESSMENT OF NIGHT: Typical . INTERPRETATION: [...] can be referred to sleep clinic at [facility]. Dictated by: Megan Lopes M.D. Signing Clinician: Megan Lopes M.D. Dictated: 03/25/2013 10:17:35 Transcribed: 03/25/2013 22:08:29 Transcribed by: LANE DocID: [id number] CC:Lupillo Gibson M.D. [facility] [address] [place], [address] [address] [facility] - Internal Medicine [address] [place] [address], [address] Type 2 diabetes mellitus wit hout complication, without long-term current use of insulin ([facility]) 05/17/2016 Acute reaction to situational stress 05/17/2016 [...] on 03 October 2013 13:21 Encounter info: [id number], [facility] [place]2013 - 09/29/2013 Results Letter Patient: MARITZA LANDEROS Age: 42 years Sex: Female : 1970 Associated Diagnoses: None Author: Antolin Venegas MD 10/03/2013 Dear Ms. BarretoDonato : This is a letter to keep [...] your stomach and duodenum. Antolin Venegas MD [facility] Gastroenterology [address] [facility] [address], [address] [facility], [address] Non morbid obesity due to excess calories 2015 Resolved Problems Problem Noted Date Diagnosed Date Resolved Date 2018 novel coronavirus disea se (COVID-19) 08/30/2020 09/12/2020 06/13/2021 Encounters Date Type Department Care Team Description 04/14/2025 2:00 PM EDT Office Visit [address] [phone] Jessie Mesa PA-C from Last 3 Months Immunizations Immunization Administration Dates Next Due Flu, Cell Culture based, Pre servative Free, 6m+, Flucelvax 09/29/2018 Flu, Preservative Free 07/05/2022,2019,06/11/2019,07/03,07/03/2013 INFLUENZA, SEASONAL, INJECTABLE 06/05/2016 Influenza (FLUBLOK),recombinant,injectable,prese rvative Free 06/16/2024 PNEUMOCOCCAL CONJUGATE PCV 2 0 (Prevnar 20) 01/08/2024 PNEUMOCOCCAL POLYSACCHARIDE PPV23 (Pneumovax 23) 05/08/2020 TDAP 06/16/2024 ZOSTER VACCINE, RECOMBINANT (SHINGRIX) 3,07/11/2022 Social History Tobacco Use Types Packs/Day Years Used Date Smoking Tobacco: Never Passive Smoke Exposure: Never Smokeless Tobacco: Never Tobacco Cessation:Counseling Given: Yes Alcohol Use Standard Drinks/Week Comments No 0 [...] Sign Reading Time Taken Comments Blood Pressure 100/60 04/14/2025 1:31 PM EDT Pulse 85 04/14/2025 1:31 PM EDT Temperature 36.8 C (98.2 F) 04/14/2025 1:31 PM EDT Respiratory Rate 16 04/14/2025 1:31 PM EDT Oxygen Saturation 98% 04/14/2025 1:31 PM EDT Inhaled Oxygen Concentration - - Weight 108.4 kg (239 lb) 04/14/2025 1:31 PM EDT Height 152.4 cm (5') 04/14/2025 1:31 PM EDT Body Mass Index 46.68 04/14/2025 1:31 PM EDT Plan of Treatment Upcoming Encounters Date Type Department Care Team (Late st Contact Info) Description 05/31/2025 2:40 PM EDT Telemedicine Visit [facility] Main [address] [place] [address] Jessie Mesa PA-C [address] [place] [address] Health Maintenance Due Date Last Done Comments Dental Examination 1970 CT Colonography 12/22/2015 FIT/gFOBT 12/22/2015 Fecal DNA 12/22/2015 Flexible Sigmoidoscopy 12/22/2015 Anxiety Screening 03/09/2021 03/09/2020 Annual Wellness (Adult): Indicated (All Coverage) 10/10/2023 10/10/2022, 09/29/2021, 05/06/2020, Additional history exists Retinopathy Screening 10/28/2024 10/28/2023 , 04/29/2023, 06/12/2022, Additional history exists Imm-Influenza (#1) 2025 06/16/2024, 1 09/04/2021, 05/08/2020, Additional history exists Depression Monitoring 07/15/2025 04/14/2025 , 11/18/2024, 04/08/2024, Additional history exists Rei-[id number]-36 ( season) 2025 04/21/2021, 03/31/2021 Postponed from 05/03/2024 (Patient postponement) Imm-Hepatitis B (1 of 3 - 19+ 3-dose series) 07/15/2025 Postponed from 1989 (Patient postponement) Hemoglobin A1c 10/15/2025 04/14/2025, 10/31, 06/16/2024, Additional history exists Breast Cancer Screening (Mammogram) 11/18/2025 11/18/2024, 11/18/2024, 11/18/2023, Additional history exists Diabetes Foot Exam 04/14/2026 04/14/2025, 0 05/01/2024, 08/01/2023, Additional history exists Hypertension Screening (#1) 04/14/2026 Lipid Screening 04/14/2026 04/14/2025, 06/02, 07/31/2023, Additional history exists Serum Creatinine 04/14/2026 04/14/2025, , 04/09/2024, Additional history exists Tobacco Screening 04/14/2026 04/14/2025, 04/08/2024 Urine Albumin Creatinine Ratio Screening 04/14/2026 04/14/2025, 06/16/2024, 01/22/2023, Additional history exists Colonoscopy 09/28/2031 09/28/2021 Colorectal Cancer Screening 09/28/2031 Imm-DTaP/Tdap/Td (2 - Td or Tdap) 06/16/2034 06/16/2024 HIV Screening Completed 07/08/2020, 07/08/2020 Hepatitis C Screening Completed 07/08/2020 Imm-Zoster, Recombinant Completed 10/10/2022, 07/11 Imm-Pneumococcal 50+ Completed 01/08/2024, 05/08/20 Alcohol and Drug Screen Completed 04/14/20, 11/18/2024, 01/08/2024, Additional history exists Procedures Procedure Name Priority Date/Time Associated Diagnosis Comments US RENAL (KIDNEYS) BILAT Routine 04/26/2025 3:00 AM EDT Right flank pain URINE CULTURE W ID & SENS Routine 04/14/2025 2:13 PM EDT RFLX - REFLEXIVE URINE CULTURE Routine 04/14/2025 2:13 PM EDT 25 HYDROXY INCLUDES FRACTIONS IF PERFORMED Routine 04/14/2025 2:13 PM EDT Hypothyroidism (acquired) Non morbid obesity due to excess calories Type 2 diabetes mellitus without complication, without long-term current use of insulin ([facility]) Right lumbar radiculopathy Right flank pain Mild vitamin D deficiency Lumbar disc disease ASSAY OF MAGNESIUM Routine 04/14/2025 2: 13 PM EDT Hypothyroidism (acquired) Non morbid obesity due to excess calories Type 2 diabetes mellitus without complication, without long-term current use of insulin ([facility]) Right lumbar radiculopathy Right flank pain Mild vitamin D deficiency Lumbar disc disease VITAMIN B12 & FOLATE Routine 04/14/2025 2:13 PM EDT Hypothyroidism (acquired) Non morbid obesity due to excess calories Type 2 diabetes mellitus without complication, without long-term current use of insulin ([facility]) Right lumbar radiculopathy Right flank pain Mild vitamin D deficiency Lumbar disc disease BLOOD COUNT COMPLETE AUTO&AUTO DIFRNTL WBC Routine 04/14/2025 2:13 PM EDT Hypothyroidism (acquired) Non morbid obesity due to excess calories Type 2 diabetes mellitus without complication, without long-term current use of insulin ([facility]) Right lumbar radiculopathy Right flank pain Mild vitamin D deficiency Lumbar disc disease COMPREHENSIVE METABOLIC PANEL Routine 04/14/2025 2:13 PM EDT Hypothyroidism (acquired) Non morbid obesity due to excess calories Type 2 diabetes mellitus without complication, without long-term current use of insulin ([facility]) Right lumbar radiculopathy Right flank pain Mild vitamin D deficiency Lumbar disc disease LIPID PANEL Routine 04/14/2025 2:13 PM EDT Hypothyroidism (acquired) Non morbid obesity due to excess calories Type 2 diabetes mellitus without complication, without long-term current use of insulin ([facility]) Right lumbar radiculopathy Right flank pain Mild vitamin D deficiency Lumbar disc disease TSH W/RFLX FREE T4 Routine 04/14/2025 2: 13 PM EDT Hypothyroidism (acquired) Non morbid obesity due to excess calories Type 2 diabetes mellitus without complication, without long-term current use of insulin ([facility]) Right lumbar radiculopathy Right flank pain Mild vitamin D deficiency Lumbar disc disease HEMOGLOBIN GLYCOSYLATED A1C Routine 04/14/2025 2:13 PM EDT Hypothyroidism (acquired) Non morbid obesity due to excess calories Type 2 diabetes mellitus without complication, without long-term current use of insulin ([facility]) Right lumbar radiculopathy Right flank pain Mild vitamin D deficiency Lumbar disc disease URINALYSIS, COMPLETE W/REFLEX TO CULTURE Routine 04/14/2025 2:13 PM EDT Hypothyroidism (acquired) Non morbid obesity due to excess calories Type 2 diabetes mellitus without complication, without long-term current use of insulin ([facility]) Right lumbar radiculopathy Right flank pain Mild vitamin D deficiency Lumbar disc disease MICROALBUMIN/CREATININ E RATIO, URINE, RANDOM Routine 04/14/2025 2:13 PM EDT Hypothyroidism (acquired) Non morbid obesity due to excess calories Type 2 diabetes mellitus without complication, without long-term current use of insulin ([facility]) Right lumbar radiculopathy Right flank pain Mild vitamin D deficiency Lumbar disc disease HISTORIC MAMMOGRAM 11/18/2024 3: 00 AM EDT EYE EXAM 10/28/2023 3:00 AM EST HISTORIC COLONOSCOPY 09/28/2021 3:00 AM EST ANTIBODY HIV-1&HIV-2 SINGLE RESULT Routine 07/08/2020 1:40 PM EST Type 2 diabetes mellitus without complication, without long-term current use of insulin ([facility]) Non morbid obesity due to excess calories HEPATITIS A,B,C PANEL Routine 07/08/2020 1:40 PM EST Type 2 diabetes mellitus without complication, without long-term current use of insulin ([facility]) Non morbid obesity due to excess calories from Last 3 Months or Most Recently Relevant to Health Maintenance Results * US RENAL (KIDNEYS) BILAT (04/26/2025 3:00 AM EDT) 04/26/2025 3:00 AM EDT us Jessie Mesa PA-C IMG ULTRASOUND Final Result * TSH W/RFLX FREE T4 Routine (04/14/2025 2:13 PM EDT) TSH W/REFLEX TO FT4 1.07 mIU/L 04/15/2025 4:57 AM EDT [employer] [facility] Blood Blood / Unknown 04/14/2025 2 :13 PM EDT 04/15/2025 3:46 AM EDT Narrative [employer] - 04/15/2025 5:20 AM EDT FASTING:NO Reference Range . > or = 20 Years 0.40-4.50 . Ranges First trimester 0.26-2.66 Second trimester 0.55-2.73 Third trimester 0.43-2.91 us Jessie Mesa PA-C LAB - BLOOD DRAW Final Resul t Performing Organization Address City/[facility]/ZIP Co de Phone Number [employer] [address] [address], [employer] [address] [address] * URINE CULTURE W ID & SENS Routine (04/14/2025 2:13 PM EDT) Micro Number [id number] 04/15/2025 10:14 PM EDT [employer] [facility] SPECIMEN QUALITY Adequate 04/15/2025 10:14 PM EDT [employer] [facility] SOURCE: URINE 04/15/2025 10:14 PM EDT [employer] [facility] STATUS: FINAL 04/15/2025 10:14 PM EDT [facility] RESULT Less than 10,000 CFU/mL of single Gram positive organism isolated. No further testing will be performed. If clinically indicated, recollection using a method to minimize contamination, with prompt transfer to Urine Culture Transport Tube, is recommended. 04/15/2025 10:14 PM EDT [facility] 04/14/2025 2:13 PM EDT 04/14/2025 2:14 PM EDT Narrative [employer] - 04/15/2025 10:20 PM EDT FASTING:NO Jessie Mesa PA-C LAB - MICROBIOLOGY AMBULATOR Y Final Result Performing Organization Address City/[facility]/ZIP Co de Phone Number [employer] [address] [address], [employer] [address] [address] * (ABNORMAL) URINALYSIS, COMPLETE W/REFLEX TO CULTURE Urine Routine (04/14/2025 2:13 PM EDT) COLOR YELLOW YELLOW 04/15/2025 4:09 AM EDT [facility] APPEARANCE CLEAR CLEAR 04/15/2025 4:09 AM EDT [facility] SPECIFIC GRAVITY 1.017 1.001 - 1.035 04/15/2025 4:09 AM EDT [employer] [facility] URINE PH < OR = 5.0(A) 5.0 - 8.0 04/15/2025 4:09 AM EDT [employer] [facility] GLUCOSE NEGATIVE NEGATIVE 04/15/2025 4:09 AM EDT [employer] [facility] BILIRUBIN NEGATIVE NEGATIVE 04/15/2025 4:09 AM EDT [employer] [facility] KETONES NEGATIVE NEGATIVE 04/15/2025 4:09 AM EDT [employer] [facility] OCCULT BLOOD TRACE(A) NEGATIVE 04/15/2025 4:09 AM EDT [employer] [facility] URINE PROTEIN NEGATIVE NEGATIVE 04/15/2025 4:09 AM EDT [employer] [facility] NITRITE NEGATIVE NEGATIVE 04/15/2025 4:09 AM EDT [employer] [facility] LEUKOCYTE ESTERASE 2+(A) NEGATIVE 04/15/2025 4:09 AM EDT [employer] [facility] URINE LEUKOCYTES 10-20(A) 0 - 5 /HPF 04/15/2025 4:09 AM EDT [employer] [facility] RBC NONE SEEN 0 - 2 /HPF 04/15/2025 4:09 AM EDT [employer] [facility] SQUAMOUS EPITHELIAL CELLS 0-5 < OR = 5 /HPF 04/15/2025 4:09 AM EDT [employer] [facility] BACTERIA NONE SEEN NONE SEEN /HPF 04/15/2025 4:09 AM EDT [employer] [facility] HYALINE CAST NONE SEEN NONE SEEN /LPF 04/15/2025 4:09 AM EDT [employer] [facility] SEE NOTE SEE NOTE 04/15/2025 4:09 AM EDT [employer] [facility] Urine Urine specimen / Unknown 04/14/2025 2:13 PM EDT 04/15/2025 3:31 AM EDT Narrative [employer] [facility] - 04/15/2025 4:12 AM EDT FASTING:NO This urine was analyzed for the presence of WBC, RBC, bacteria, casts, and other formed elements. Only those elements seen were reported. . . us Jessie Mesa PA-C LAB URINE AMBULATORY Final R esult [employer] [address] [address], [employer] [address] [address] * RFLX - REFLEXIVE URINE CULTURE Routine (04/14/2025 2:13 PM EDT) REFLEXIVE URINE CULTURE SEE NOTE 04/15/2025 4:09 AM EDT [employer] [facility] 04/14/2025 2:13 PM EDT 04/15/2025 3:31 AM EDT [employer] MORNOE MONSIVAIS - 04/15/2025 4:12 AM EDT FASTING:NO CULTURE INDICATED - RESULTS TO FOLLOW Jessie Mesa PA-C LAB - MICROBIOLOGY AMBULATOR Y Final Result Performing Organization Address [facility] de Phone Number [employer] [address] [place] [phone], [employer] [address] [address] * MICROALBUMIN/CREATININE RATIO, URINE, RANDOM Urine Routine (04/14/2025 2:13 PM EDT) CREATININE, RANDOM URINE 135 20 - 275 mg/dL 04/15/2025 6:05 PM EDT [employer] [facility] MICROALBUMIN <0.2 mg/dL 04/15/2025 6:05 PM EDT [employer] [facility] MICROALBUMIN/CRE ATININE RATIO, RANDOM URINE NOTE <30 mg/g creat 04/15/2025 6:05 PM EDT [employer] [facility] Urine Urine specimen / Unknown 04/14/2025 2:13 PM EDT 04/15/2025 2:26 AM EDT [employer] - 04/15/2025 6:06 PM EDT FASTING:NO Reference Range Not established NOTE: The urine albumin value is less than 0.2 mg/dL therefore we are unable to calculate excretion and/or creatinine ratio. . The ADA defines abnormalities in albumin excretion as follows: . Albuminuria Category Result (mg/g creatinine) . Normal to Mildly increased <30 Moderately increased 30-299 Severely increased > OR = 300 . The ADA recommends that at least two of three specimens collected within a 3-6 month period be abnormal before considering a patient to be within a diagnostic category. us Jessie Mesa PA-C LAB URINE AMBULATORY Final R esult Performing Organization Address City/[facility]/ZIP Co de Phone Number [employer] [facility] [address] [address], [employer] [address] [address] * VITAMIN B12 & FOLATE Routine (04/14/2025 2:13 PM EDT) [facility] VITAMIN B12 721 200 - 1,100 pg/mL 04/15/2025 4:57 AM EDT [employer] [facility] FOLATE, SERUM 20.5 ng/mL 04/15/2025 4:57 AM EDT [employer] [facility] Blood Blood / Unknown 04/14/2025 2:13 PM EDT 04/15/2025 3:46 AM EDT Narrative [employer] [facility] - 04/15/2025 5:20 AM EDT FASTING:NO Reference Range Low: <3.4 Borderline: 3.4-5.4 Normal: >5.4 . Jessie Mesa PA-C LAB - BLOOD DRAW Final Resul t Performing Organization Address City/[facility] Co de Phone Number [employer] [address] [address], [employer] [address] [phone] * BLOOD COUNT COMPLETE AUTO&AUTO DIFRNTL WBC Routine (04/14/2025 2:13 PM EDT) [facility] WHITE BLOOD CELL COUNT 8.6 3.8 - 10.8 Thousand/ uL 04/15/2025 3:48 AM EDT [employer] [facility] RED BLOOD CELL COUNT 4.54 3.80 - 5.10 Million/u L 04/15/2025 3:48 AM EDT [employer] [facility] HEMOGLOBIN 13.9 11.7 - 15.5 g/dL 04/15/2025 3:48 AM EDT [employer] [facility] HEMATOCRIT 42.5 35.0 - 45.0 % 04/15/2025 3:48 AM EDT [employer] [facility] MCV 93.6 80.0 - 100.0 fL 04/15/2025 3:48 AM EDT [employer] [facility] MCH 30.6 27.0 - 33.0 pg 04/15/2025 3:48 AM EDT [employer] [facility] MCHC 32.7 32.0 - 36.0 g/dL 04/15/2025 3:48 AM [facility]Glowforth [facility] RDW 13.0 11.0 - 15.0 % 04/15/2025 3:48 AM EDT [employer] [facility] PLATELET COUNT 273 140 - 400 Thousand/ uL 04/15/2025 3:48 AM EDT [employer] [facility] MPV 9.5 7.5 - 12.5 fL 04/15/2025 3:48 AM EDT [employer] [facility] ABSOLUTE NEUTROPHILS 4,291 1,500 - 7,800 cells/uL 04/15/2025 3:48 AM EDGlowforth [facility] ABSOLUTE LYMPHOCYTES 3,629 850 - 3,900 cells/uL 04/15/2025 3:48 AM [facility]lowforth [facility] ABSOLUTE MONOCYTES 456 200 - 950 cells/uL 04/15/2025 3:48 AM [employer] [facility] ABSOLUTE EOSINOPHILS 198 15 - 500 cells/uL 04/15/2025 3:48 AM EDGlowforth [facility] ABSOLUTE BASOPHILS 26 0 - 200 cells/uL 04/15/2025 3:48 AM [facility]Glowforth [facility] NEUTROPHILS PCT 49.9 % 3:48 AM EDGlowforth [facility] LYMPHOCYTES 42.2 % 04/15/2025 3:48 AM [employer] [facility] MONOCYTES 5.3 % 04/15/2025 3:48 AM [employer] [facility] EOSINOPHILS 2.3 % 04/15/2025 3:48 AM [employer] [facility] BASOPHILS 0.3 % 04/15/2025 3:48 AM [employer] [facility] Blood Blood / Unknown 04/14/2025 2 :13 PM EDT 04/15/2025 2:45 AM EDT [employer] [facility] - 04/15/2025 3:55 AM EDT FASTING:NO For adults, a slight decrease in the calculated MCHC value (in the range of 30 to 32 g/dL) is most likely not clinically significant; however, it should be interpreted with caution in correlation with other red cell parameters and the patient's clinical condition. us Jessie Mesa PA-C LAB - BLOOD DRAW Final Resul t Performing Organization Address [facility] Co de Phone Number [employer] [address] [address], [employer] [address] [address] * ASSAY OF MAGNESIUM Routine (04/14/2025 2:13 PM EDT) MAGNESIUM 1.9 1.5 - 2.5 mg/dL 04/15/2025 5:21 AM EDT [employer] Blood Blood / Unknown 04/14/2025 2 :13 PM EDT 04/15/2025 3:46 AM EDT [facility] [employer] - 04/15/2025 5:24 AM EDT FASTING:NO us Jessie Mesa PA-C LAB - BLOOD DRAW Final Resul t Performing Organization Address [facility] de Phone Number [employer] [address] [place] [phone], [employer] [address] [place] [phone] * (ABNORMAL) HEMOGLOBIN GLYCOSYLATED A1C Routine (04/14/2025 2:13 PM EDT) HEMOGLOBIN A1C 6.8(H) <5.7 % 04/15/2025 5:58 PM EDT [facility] Blood Blood / Unknown 04/14/2025 2 :13 PM EDT 04/15/2025 2:45 AM EDT [facility]his[facility] [employer] - 04/15/2025 5:59 PM EDT FASTING:NO For someone without known diabetes, a hemoglobin A1c value of 6.5% or greater indicates that they may have diabetes and this should be confirmed with a follow-up test. . For someone with known diabetes, a value <7% indicates that their diabetes is well controlled and a value greater than or equal to 7% indicates suboptimal control. A1c targets should be individualized based on duration of diabetes, age, comorbid conditions, and other considerations. . Currently, no consensus exists regarding use of hemoglobin A1c for diagnosis of diabetes for children. . us Jessie HATHAWAY-Prashant LAB - BLOOD DRAW Final Resul t Performing Organization Address [facility] de Phone Number [employer] [address] [place] [address], [employer] [address] [phone] * 25 HYDROXY INCLUDES FRACTIONS IF PERFORMED Routine (04/14/2025 2:13 PM EDT) VITAMIN D, 25-OH, TOTAL 38 30 - 100 ng/mL 04/15/2025 8:55 AM EDT [facility] Blood Blood / Unknown 04/14/2025 2 :13 PM EDT 04/15/2025 3:46 AM EDT Narrative [employer] - 04/15/2025 9:04 AM EDT FASTING:NO Vitamin D Status 25-OH Vitamin D: . Deficiency: <20 ng/mL Insufficiency: 20 - 29 ng/mL Optimal: > or = 30 ng/mL . For 25-OH Vitamin D testing on patients on D2-supplementation and patients for whom quantitation of D2 and D3 fractions is required, the QuestAssureD(TM) 25-OH VIT D, (D2,D3), LC/MS/MS is recommended: order code 23090 (patients >2yrs). . See Note 1 . Note 1 . For additional information, please refer to http://education.St. Vibes/faq/AHB948 (This link is being provided for informational/ educational purposes only.) us Jessie Mesa PA-C LAB - BLOOD DRAW Final Resul t Performing Organization Address [facility]/ZIP Co de Phone Number [employer] [address] [address], [employer] [address] [address] * LIPID PANEL Routine (04/14/2025 2:13 PM EDT) CHOLESTEROL, TOTAL 187 <200 mg/dL 04/15/2025 5:21 AM EDT [employer] [facility] HDL CHOLESTEROL 75 > OR = 50 mg/dL 04/15/2025 5:21 AM EDT [employer] [facility] TRIGLYCERIDES 128 <150 mg/dL 04/15/2025 5:21 AM EDT [employer] [facility] LDL-CHOLESTEROL 90 mg/dL (calc) 04/15/2025 5:21 AM EDT [employer] [facility] CHOL/HDLC RATIO 2.5 <5.0 (calc) 04/15/2025 5:21 AM EDT [employer] [facility] NON-HDL CHOLESTEROL 112 <130 mg/dL (calc) 04/15/2025 5:21 AM EDT [employer] [facility] Blood Blood / Unknown 04/14/2025 2 :13 PM EDT 04/15/2025 3:46 AM EDT Narrative [employer] [facility] - 04/15/2025 5:24 AM EDT FASTING:NO Reference range: <100 . Desirable range <100 mg/dL for primary prevention; <70 mg/dL for patients with CHD or diabetic patients with > or = 2 CHD risk factors. . LDL-C is now calculated using the Duane calculation, which is a validated novel method providing better accuracy than the Friedewald equation in the estimation of LDL-C. Luis Alberto PICKARD et al. MARIA FERNANDA. 2013;310(19): 7151-6090 (http://education.Prescreen.Joota/faq/MMQ178) For patients with diabetes plus 1 major ASCVD risk factor, treating to a non-HDL-C goal of <100 mg/dL (LDL-C of <70 mg/dL) is considered a therapeutic option. Jessie HATHAWAY-C LAB - BLOOD DRAW Final Resul t [employer] [facility] [address] [address], [employer] [address] [phone] * (ABNORMAL) COMPREHENSIVE METABOLIC PANEL Routine (04/14/2025 2:13 PM EDT) GLUCOSE 157(H) 65 - 139 mg/dL 04/15/2025 5:21 AM EDT [employer] [facility] UREA NITROGEN (BUN) 17 7 - 25 mg/dL 04/15/2025 5:21 AM EDT [employer] [facility] CREATININE (blood) 0.86 0.50 - 1.03 mg/dL 04/15/2025 5:21 AM [employer] [facility] EGFR 80 > OR = 60 mL/min/1. 73m2 04/15/2025 5:21 AM [employer] [facility] BUN/CREATININE RATIO SEE NOTE: 6 - 22 (calc) 04/15/2025 5:21 AM [employer] [facility] SODIUM 138 135 - 146 mmol/L 04/15/2025 5:21 AM [employer] [facility] POTASSIUM 4.3 3.5 - 5.3 mmol/L 04/15/2025 5:21 AM [employer] [facility] CHLORIDE 102 98 - 110 mmol/L 04/15/2025 5:21 AM [employer] [facility] CARBON DIOXIDE 27 20 - 32 mmol/L 04/15/2025 5:21 AM [employer] [facility] CALCIUM 9.0 8.6 - 10.4 mg/dL 04/15/2025 5:21 AM [employer] [facility] PROTEIN, TOTAL 7.5 6.1 - 8.1 g/dL 04/15/2025 5:21 AM [employer] [facility] ALBUMIN 4.2 3.6 - 5.1 g/dL 04/15/2025 5:21 AM [employer] [facility] GLOBULIN 3.3 1.9 - 3.7 g/dL (calc) 04/15/2025 5:21 AM [employer] [facility] ALBUMIN/GLOBULI N RATIO 1.3 1.0 - 2.5 (calc) 04/15/2025 5:21 AM [employer] [facility] BILIRUBIN, TOTAL 0.5 0.2 - 1.2 mg/dL 04/15/2025 5:21 AM [employer] [facility] ALKALINE PHOSPHATASE 65 37 - 153 U/L 04/15/2025 5:21 AM [employer] [facility] AST 23 10 - 35 U/L 04/15/2025 5:21 AM [employer] [facility] ALT 40(H) 6 - 29 U/L 04/15/2025 5:21 AM [employer] [facility] Blood Blood / Unknown 04/14/2025 2 :13 PM EDT 04/15/2025 3:46 AM EDZouxiu [facility] - 04/15/2025 5:24 AM EDT FASTING:NO . Non-fasting reference interval . Not Reported: BUN and Creatinine are within reference range. . us Jessie Mesa PA-C LAB - BLOOD DRAW Final Resul t [employer] [place] [employer] [address] [place] [address], [employer] [facility] [address] [place] [address] * HISTORIC MAMMOGRAM (11/18/2024 3:00 AM EDT) [...] EST) HEPATITIS B SURFACE ANTIBODY NEGATIVE NEGATIVE [facility] HEPATITIS B SURFACE ANTIGEN NEGATIVE NEGATIVE [facility] Comment: Over the counter supplements containing high doses of biotin may interfere with this assay. If interference is suspected, patients shoud be retested after refraining from biotin supplements for 72 hours. HEPATITIS C VIRUS DIAGNOSTIC NEGATIVE NEGATIVE [facility] HEPATITIS A ANTIBODY TOTAL POSITIVE(A) NEGATIVE [facility] Comment: Over the counter supplements containing high doses of biotin may interfere with this assay. If interference is suspected, patients shoud be retested after refraining from biotin supplements for 72 hours. HEPATITIS B CORE ANTIBODY NEGATIVE NEGATIVE [facility] Blood Blood / Unknown 07/08/2020 1 :40 PM EST 07/08/2020 3:02 PM EST [facility] - 07/08/2020 7:07 PM EST [employer], [place] [address] Field Crop Technical Officer - Danae Contreras MD PT ID [id number] ORD# [id number] Jessie Mesa PA-C LAB - BLOOD DRAW [place] [address], [place] [phone] * HIV-1 & HIV-2 ANTIBODIES (07/08/2020 1:40 PM EST) [facility] HIV 1 AND 2 ANTIBODY SCREEN NEGATIVE NEGATIVE [facility] Comment: This assay is a 4th generation assay allowing for earlier detection of HIV infection by detecting the presence of the HIV-1 p24 antigen as well as the traditional antibodies to HIV type 1 (including group O) and type 2. Use of a 4th generation assay is the current CDC recommendation for HIV screening. Blood Blood / Unknown 07/08/2020 1 :40 PM EST 07/08/2020 3:02 PM EST [facility] - 07/08/2020 7:36 PM EST [employer], [place] [address] Field Crop Technical Officer - Danae Contreras MD PT ID [id number] ORD# [id number] Jessie Mesa PA-C LAB - BLOOD DRAW Final Resul t [address] [address], [place] [phone] from Last 3 Months or Most Recently Relevant to Health Maintenance Insurance [facility] [address] ACO Care Teams Field Assembly Supervisor Relationship Specialty Start Date End Date Jessie Mesa PA-C [address] [place] [phone] PCP - General Internal Medicine 12/02/15
--- OUTSIDE RECORDS SUMMARY | 2025-04-30 11:23 | XMS_ITS | Clinical Summary ---
Author Organization [email or web address] Address [address] [place] [address] Care Team Providers Care Professor Of Religious Studies Name Role Phone Unavailable Primary Care Provider Unavailabl e Encounters Date Type Department Care Team Description 03/23/[address] Score [facility] (C3) Department [address] [facility] [address] [place] [address] Provider, Population Health Generic from Last 3 Months Social History Tobacco Use Types Packs/Day Years Used Date Smoking Tobacco: Never Assessed Comments Unknown Sex and Gender Information Value Date Recorded Sex Assigned at Not on file Legal Sex Female 9:26 PM EDT Gender Identity Not on file Sexual Orientation Not on file Plan of Treatment Health Maintenance Due Date Last Done Comments CT Colonography 1970 Colonoscopy 1970 Colorectal Cancer Screening 1970 Depression Screening 1970 FIT DNA/Cologuard 1970 FIT 1970 FOBT 1970 Lipid Panel 1970 SDOH Screening 1970 Sigmoidoscopy 1970 Disability Screening 1970 Alcohol/Substance Use Screening 1982 Tobacco Screening 1982 Hepatitis C Screening 1988 Hepatitis B Vaccines (1 of 3 - 19+ 3-dose series) 1989 Pap Smear 12/22/1991 Cervical Cancer Screening 2000 HPV/Cotest 2000 Mammogram 2010 COVID-19 Vaccine ( season) 2024 Influenza Vaccine (#1) 2025 , 07/05/2022, 05/08/2020, Additional history exists DTaP/Tdap/Td Vaccines (2 - Td or Tdap) 06/16/2034 06/16/2024 RSV Patients and Patients Aged 60 years or older (1 - 1-dose 75+ series) 2045 HIV Screening Completed 07/08/2020 Zoster Vaccines Completed 10/10/2022, 07/11/2022 Pneumococcal Vaccine: 50+ Years Completed 01/08/2024, 05/08/2020 HIB Vaccines Aged Out No longer eligi [...] patient's age to complete this topic Meningococcal Vaccine Aged Out No david jane eligible based on patient's age to complete this topic RSV under 20 months Aged Out No longe r eligible based on patient's age to complete this topic Rotavirus Vaccines Aged Out No longer eligible based on patient's age to complete this topic
--- OUTSIDE RECORDS SUMMARY | 2025-04-30 11:24 | XMS_ITS | Clinical Summary ---
Author Organization [facility] Address [address] [place] [address] Phone Care Team Providers Care Linderman Operator Name Role Phone Jessie Mesa Primary Care Provider [phone] Allergies Active Allergy Reactions Criticality Noted Date Comments Clarithromycin 06/21/2021 Dupilumab Rash 02/27/2022 Levofloxacin Numbness,Swelling 03/19/2023 Liraglutide 06/21/2021 Medications glipiZIDE (GLUCOTROL XL) 2.5 mg 24 hr tablet Take 1 Tablet by mouth Active fluticasone propionate (FLONASE) 50 mcg/actuation nasal spray 1 [place] by Nasal route daily. 4 Active esomeprazole (NexIUM) [address] capsule 4 Active diclofenac (VOLTAREN) 1 % topical [...] NOSTRIL DIRECTED 90 mL 3 5 Active montelukast (SINGULAIR) 10 mg tabletIndication s:Other allergic rhinitis,Unspeci fied asthma with (acute) exacerbation TOME 1 TABLETA POR VIA ORAL TODOS LOS CEE AL ACOSTARSE 90 tablet 3 5 Active Advair HFA 230-21 mcg/actuation inhalerIndicatio ns:Moderate persistent asthma without complication Inhale 2 puffs by mouth 2 (two) times a day. Rinse mouth with water after use to reduce aftertaste and incidence of candidiasis. Do not swallow. 36 g 4 5 026 Active cetirizine (ZyrTEC) 10 mg tabletIndication s:Nasal congestion,Other allergic rhinitis TOME 1 TABLETA POR VIA ORAL TODOS LOS CEE 90 tablet 3 5 Active albuterol 2.5 mg /3 mL (0.083 %) nebulizer solution Take 3 mL (2.5 mg total) by nebulization every 4 (four) hours if needed for wheezing. 75 mL 11 5 Active Active Problems Problem Noted Date Diagnosed Date Obstructive sleep apnea 12/18/2021 Overview (05/27/2024): [facility] Home sleep test 12/07/2021; weight 252; [...] including hypertension and arrhythmias DM (diabetes mellitus) ([facility] V24, [facility] V28 ) 05/27/2021 Mild intermittent asthma, uncomplicated [...] for her to be seen by pulmonary organizational effectiveness consultant. My suspicion is that the stress [...] any underlying arrhythmia. Thoracic aortic aneurysm (TAA) ([facility] V24) Overview (05/27/2024): Last Assessment & Plan: [...] Covid. 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 Will [...] PROCEDURE: HISTORICAL SUBTOTAL THYROIDECTOMY CHOLECYSTECTOMY 2010 PROCEDURE: [place] CHOLECYSTECTOMY HYSTERECTOMY 1998 PROCEDURE: HISTORICAL HYSTERECTOMY; COMMENT: No ovaries removed. SALPINGOOPHORECTOMY 2012 PROCEDURE: [place] LAPAROSCOPY W/RMVL ADNEXAL STRUCTURES COLONOSCOPY 09/28/2021 PROCEDURE: HISTORICAL COLONOSCOPY; COMMENT: negative Medical History Medical History Date Comments Covid-19 08/2020 DX:COVID-19 Mild intermittent asthma, uncomplicated DX:Mild intermittent asthma, uncomplicated Thoracic aortic aneurysm (TA A) ([facility] V24) DX:Thoracic aortic aneurysm (TAA) (HCC) DM (diabetes mellitus) ([facility]/ [facility] V24, [facility] V28) DX:DM (diabetes mellitus) (H CC) Glaucoma DX:Glaucoma Hypothyroidism DX:Hypothyroidis m HTN (hypertension) DX:HTN (hyper tension) Dysphagia DX:Dysphagia Epigastric pain DX:Epigastric pa in Diabetes 1.5, managed as typ e 2 (CMS/HCC V24, CMS/[facility] V28) DX:Diabetes 1.5, managed as type 2 (HCC) Retained food in stomach DX:Tanisha ined food [...] 68 12/17/2024 10:36 AM EDT Temperature 35.6 C (96 F) 12/17/2024 10:36 AM EDT Respiratory Rate 16 [...] Care Team (Late st Contact Info) Description 05/10/2025 11:25 AM EDT Office Visit Pulmonolgy - [place] [address] [place] [phone] Jessie Kirby, WILLIAM [address] [place] [address] 07/06/2025 10:00 AM EST Ancillary Procedure [facility] [address] [place] [phone] Health Maintenance Due Date Last Done Comments Diabetes: Annual Foot Exam 1980 Diabetes: Annual Retina Eye Exam 1980 Hepatitis B Vaccines (1 of 3 - 19+ 3-dose series) 1989 Cervical Cancer Screening: Pap Smear 12/22/1991 COVID-19 Vaccine (3 - Pfizer risk series) 05/19/2021 04/21/2021, 03/31/2021 Social Influencers of Health Screening 08/11/2022 Depression Screening 09/02/2024 Influenza Vaccine (#1) 2025 , 07/05/2022, 05/08/2020, Additional history exists Diabetes: Blood Sugar Control Test (HGBA1C) 05/21/2025 11/18/2024, 06/16/2024, 07/31/2023 Diabetes: Annual Urine Albumin-Creatinine Ratio (uACR) 06/16/2025 06/16/2024, 01/22/2023, 06/13/2021, Additional history exists Diabetes: Annual GFR (Glomerular Filtration Rate) 06/16/2025 06/16/2024, 04/09/2024, 07/31/2023 Hypertension/CHF/CAD Annual BMP Blood Test 06/16/2025 06/16/2024, 04/09/2024, 07/31/2023 Breast Cancer Screening 11/18/2026 11/19/19, 11/18/2023, 11/13/2022, Additional history exists Cholesterol Screening [...] screening mammogram for malignant neoplasm of breast ANNUAL BMP BLOOD TEST Routine 07/31/2023 HEMOGLOBIN [...] year. Mammo Location: [facility], [address] [place] [address], [id number], . -------- FINAL REPORT -------- Dictated By: Grace Pretty Dictated Date: 11/18/2024 15:56 ET Assigned Physician: Grace Pretty Reviewed and Electronically Signed By: Grace Pretty Signed Date: 11/18/2024 15:58 ET Workstation ID: [id number] Transcribed By: Self Edit Transcribed Date: 11/18/2024 [...] evidence of suspicious mass or architectural distortion. No worrisome calcifications are evident. There has been no significant change from prior exam(s). Stable biopsy marker in [...] year. Mammo Location: [facility], [address] [place] [address], [facility], . -------- FINAL REPORT -------- Dictated By: Grace Pretty Dictated Date: 11/18/2024 15:56 ET Assigned Physician: Grace Pretty Reviewed and Electronically Signed By: Grace Pretty Signed Date: 11/18/2024 15:58 ET Workstation ID: [id number] Transcribed By: Self Edit Transcribed Date: 11/18/2024 15:56 ET us Jessie HATHAWAY IMG BI PROCEDURES Final Result * Annual BMP Blood Test (07/31/2023) Annual BMP Blood Test Abstracted Historical Provider HEALTH MAINTENANCE Final Result * Hemoglobin A1c (07/31/2023) Pathologist [facility] Hemoglobin A1C 0.0 % Comment:No interpretation Blood Venous blood specimen / Unknown Result [facility] Provider LAB BLOOD ORDERABLES Eunice l Result * Lipid panel (07/31/2023) [facility] Triglycerides 0 mg/dL Comment:No interpretation Cholesterol 0 mg/dL Comment:No interpretation HDL 0 mg/dL Comment:No interpretation LDL Cholesterol 0 mg/dL Comment:No interpretation Blood Venous blood specimen / Unknown Result [facility] Provider LAB BLOOD ORDERABLES Eunice l Result * Colonoscopy (09/28/2021) Pathologist [facility] Colonoscopy No interpretation , abstracted Anatomical Region Laterality Modality Other Result [facility] Provider HEALTH MAINTENANCE Final Result * HIV Screening (07/08/2020) [facility] HIV Screening Abstracted Result [facility] Provider HEALTH MAINTENANCE Final Result * Hepatitis C Screening (07/08/2020) [facility] Hepatitis C Screening Abstracted Result [facility] Provider HEALTH MAINTENANCE Final Result * Urine Albumin Creatinine Ratio (01/22/2019) Pathologist [facility] Urine Albumin Creatinine Ratio Abstracted Result [facility] Provider HEALTH MAINTENANCE Final Result from Last 3 Months or Most Recently Relevant to Health Maintenance Insurance [place] Care Teams Linderman Operator Relationship Specialty Start Date End Date Jessie Mesa PA [address] [place] [phone] PCP - General Internal Medicine 11/22/20
== END 2025-04-30 11:07 | disposition home or self-care (01) ==
LOC: HO.ENCR 10:46
PROVIDERS: PCP Physician Assistant; Visit Provider Student in an Organized Health Care Education/Training Program
DX: Z85.850 Personal history of malignant neoplasm of thyroid (principal); E89.0 Postprocedural hypothyroidism
CPT/HCPCS: 99214

== ENCOUNTER → 2025-04-30 10:45 | Outpatient (BNVA) | payer MEDICAID, SELFPAY | PROVIDERS: PCP Physician Assistant; Visit Provider Student in an Organized Health Care Education/Training Program | DX: E89.0 Postprocedural hypothyroidism (principal); Z85.850 Personal history of malignant neoplasm of thyroid | CPT/HCPCS: 99212 ==

== ENCOUNTER 2025-05-04 09:49 | Outpatient (AMB) | payer MEDICAID, SELFPAY ==
[2025-05-04 09:59] VITALS: BMI 43.6
--- NOTE | 2025-05-04 09:59 | A.OFFVIS_ITS ---
VS Expanded 05/04/25 09:59 Height 5 ft 2 in Weight 238 lb 8.642 oz BMI 43.6 Intake Visit Reasons: T2DM Allergies clarithromycin Allergy (Unknown, Verified 04/30/25 10:56) Unknown liraglutide Allergy (Unknown, Verified 04/30/25 10:56) redness and itching No Known Allergies (No Known Allergies*) Allergy (Verified 04/30/25 10:56) Nutrition Presentation Details: Pt presents for MNT f/u for T2DM Pt reports restarting to work on meal planning, was in [place] and meal routine had changed [facility] Medical History (Updated 01/18/25 @ 10:16 by Melisa Phan MD) History of thyroid cancer Diabetic nephropathy associated with type 2 diabetes mellitus Post-surgical hypothyroidism Primary thyroid cancer Diabetes type 2, controlled Surgical History History of total thyroidectomy History of total abdominal hysterectomy History of carpal tunnel release of both wrists Family History Father CVD (cardiovascular disease) Mother CVD (cardiovascular disease) Social History Household Members: None Alcohol intake: never Patient Tobacco Use Status: Never used Tobacco Assessment & Plan Assessment & Plan (1) Diabetes type 2, controlled: Code(s): E11.9 - Type 2 diabetes mellitus without complications Category: Medical Plan: Wt:121 Kg ( 08/2023 ), 117 kg (10/2023),, 104 kg (04/25- Pt reports having started mounjaro a month ago), 102 (07/26) , 107 kg (11/24), 02/24, 108 kg (05/27) Est kcal needs as per MSJ: 1900 (40% carb, 30% protein/fat) Est fluid needs as per 30 ml/d: 3100 Est prot per day as per 1 g/kg bw: 102 Recommend fiber intake : 8-10 g per day and gradually increase to 25-28 g per day for women and 35-38 g for men or as tolerated Recommend sodium intake per day : less than 2300 mg Educated patient on: ( R = reviewed V = verbalizes understanding N/R = needs review N/A = not applicable * Food sources of carbohydrate, adequate serving sizes and its role in various health conditions: R V * Differences between complex carbohydrates a simple carbohydrates, role of fiber in diet: R V * Lean protein sources of foods: R * Differences between types of fats and role in diet (mono on saturated fat fatty acids, saturated fatty acids, trans fats): R * Food sources of sodium in salt and healthy modifications for heart health in kidney health: R * Vitamins and minerals: R * Healthy plate method concept: R V * Physical activity: Benefits a precaution: R V * Dietary prevention of Hyperglycemia: V Plan Patient Instructions: Restart exercise routine y : 30-40 minutes walking 3 times/wk- set it in your calendar Resume meal planning [id number] don , keep hydrated by having water with meals/snack s Coding Level of Care Code Nutr Indiv Subseq (54629) Diagnoses Diabetes type 2, controlled E11.9 Time Spent (min) 30
--- OUTSIDE RECORDS SUMMARY | 2025-05-04 11:00 | XMS_ITS | Clinical Summary ---
Author Organization [employer] Address [address] [place] [address] Care Team Providers Care Mutual Fund Sales Agent Name Role Phone Unavailable Primary Care Provider Unavailabl e Encounters Date Type Department Care Team Description 03/23/2025 Population Health Risk Score [facility] (C[facility]) Department [address] [place] [address] Provider, Population Health Generic from [...] 2000 Mammogram 2010 COVID-19 Vaccine ( season) 2025 Influenza Vaccine (#1) 2025 , 07/05/2022, 05/08/2020, [...]
--- OUTSIDE RECORDS SUMMARY | 2025-05-04 11:00 | XMS_ITS | Clinical Summary ---
Author Organization [facility] Address [address] [place] [address] Phone Care Team Providers Care Business Development Manager Name Role Phone Jessie Mesa Primary Care Provider [phone] Allergies Active Allergy Reactions Criticality Noted Date Comments Clarithromycin 06/21/2021 Dupilumab Rash 02/27/2022 Levofloxacin Numbness,Swelling 03/19/2023 Liraglutide 06/21/2021 Medications glipiZIDE (GLUCOTROL XL) 2.5 mg 24 hr tablet Take 1 Tablet by mouth Active fluticasone propionate (FLONASE) 50 mcg/actuation nasal spray 1 [place] by Nasal route daily. 4 Active esomeprazole [...] Date Obstructive sleep apnea 12/18/2021 Overview (05/27/2024): [facility] Home sleep test 12/07/2021; weight [...] including hypertension and arrhythmias DM (diabetes mellitus) ([facility] V24, [facility] V28 ) 05/27/2021 Mild intermittent asthma, [...] for her to be seen by pulmonary sap portal consultant. My suspicion is that the stress [...] any underlying arrhythmia. Thoracic aortic aneurysm (TAA) ([facility] V24) Overview (05/27/2024): Last Assessment & [...] Covid. 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 Will [...] asthma, uncomplicated Thoracic aortic aneurysm (TA A) ([facility] V24) DX:Thoracic aortic aneurysm (TAA) (HCC) DM (diabetes mellitus) ([facility] V24, [facility] V28) DX:DM (diabetes mellitus) (H CC) Glaucoma DX:Glaucoma Hypothyroidism DX:Hypothyroidis m HTN (hypertension) DX:HTN (hyper tension) Dysphagia DX:Dysphagia Epigastric pain DX:Epigastric pa in Diabetes 1.5, managed as typ e 2 (CMS/HCC V24, [facility] V28) DX:Diabetes 1.5, managed as type 2 [...] 11:25 AM EDT Office Visit Pulmonolgy - [place] [address] [place] [id number] Jessie Kirby, WILLIAM [address] [place] [address] 07/06/2025 10:00 AM EST Ancillary Procedure [facility] [place] [address] [place] [address] [place] [phone] Health Maintenance Due Date Last Done Comments [...] year. Mammo Location: [facility], [address] [place] [address], [id number], . -------- FINAL REPORT -------- Dictated By: Grace Pretty Dictated Date: 11/18/2024 15:56 ET Assigned Physician: Grace Pretty Reviewed and Electronically Signed By: Grace Pretty Signed Date: 11/18/2024 15:58 ET Workstation ID: [id number] Transcribed By: Self Edit Transcribed Date: 11/18/2024 [...] year. Mammo Location: [facility], [address] [place] [address], [facility], . -------- FINAL REPORT -------- Dictated By: Grace Pretty Dictated Date: 11/18/2024 15:56 ET Assigned Physician: Grace Pretty Reviewed and Electronically Signed By: Grace Pretty Signed Date: 11/18/2024 15:58 ET Workstation ID: [id number] Transcribed By: Self Edit Transcribed Date: 11/18/2024 15:56 ET us Jessie HATHAWAY IMG BI PROCEDURES Final Result * Annual BMP Blood Test (07/31/2023) Annual BMP Blood Test Abstracted Historical Provider HEALTH MAINTENANCE Final Result * Hemoglobin A1c (07/31/2023) Pathologist [facility] Hemoglobin A1C 0.0 % Comment:No interpretation Blood Venous blood specimen / Unknown Result [facility] Provider LAB BLOOD ORDERABLES Eunice l Result * Lipid panel (07/31/2023) [facility] Triglycerides 0 mg/dL Comment:No interpretation Cholesterol 0 mg/dL Comment:No interpretation HDL 0 mg/dL Comment:No interpretation LDL Cholesterol 0 mg/dL Comment:No interpretation Blood Venous blood specimen / Unknown Result [facility] Provider LAB BLOOD ORDERABLES Eunice l Result * Colonoscopy (09/28/2021) Pathologist [facility] Colonoscopy No interpretation , abstracted Anatomical Region Laterality Modality Other Result [facility] Provider HEALTH MAINTENANCE Final Result * HIV Screening (07/08/2020) [facility] HIV Screening Abstracted Result [facility] Provider HEALTH MAINTENANCE Final Result * Hepatitis C Screening (07/08/2020) [facility] Hepatitis C Screening Abstracted Result [facility] Provider HEALTH MAINTENANCE Final Result * Urine Albumin Creatinine Ratio (01/22/2019) Pathologist [facility] Urine Albumin Creatinine Ratio Abstracted Result [facility] Provider HEALTH MAINTENANCE Final Result from Last 3 Months or Most Recently Relevant to Health Maintenance Insurance [place] Care Teams Business Development Manager Relationship Specialty Start Date End Date Jessie Mesa PA [address] [place] [address] PCP - General Internal Medicine 11/22/20
--- OUTSIDE RECORDS SUMMARY | 2025-05-04 11:00 | XMS_ITS | Clinical Summary ---
Author Organization [facility] Address [address] [place] [address] Care Team Providers Care Line Controller Name Role Phone Jessie Mesa PA-C Primary Care Provider [phone] Source Comments PLEASE NOTE, if this patient [...] complication, without long-term current use of insulin ([facility]) Inject 5 mg into the skin once [...] complication, without long-term current use of insulin ([facility]) FREESTYLE LITE LANCETS, USE TWICE A [...] complication, without long-term current use of insulin ([facility]),Hypoglyce romulo INYECTE 2.5 MG POR [...] 06/13/2021 Body mass index (BMI) 50.0-59.9, adult ([facility]) 12/13/2020 Generalized anxiety disorder 04/06/2020 Papillary thyroid carcinoma ([facility]) 01/31 Bilateral nephrolithiasis 11/15/2019 Overview (11/15/2019): 11/06/2019: [facility]: IMPRESSION: Nonobstructing calculi within the kidneys bilaterally. No evidence of ureteral calculi or hydronephrosis. Incompletely distended urinary bladder with mild perivesicular fat stranding which may represent cystitis in the appropriate clinical settin Pelvic prolapse/mixed urinary incontinence 12/18 S/P JOHN (total abdominal hysterectomy) Dr. Giancarlo del toro 201411/06/2018 Major depressive disorder, r ecurrent episode with anxious distress ([facility] V24) 06/18/2018 Sciatica of right side, [facility] ED 03/17/2017 0 03/22/2017 Overview (03/22/2017): Result type: Discharge/Transfer Note Hospital Result date: March 17, 2017 14:02 Result status: Auth (Verified) Result title: Hospitalist Discharge Summary Performed by: Eh Stewart MD on March 17, 2017 14:08 Verified by: Eh Stewart MD on March 17, 2017 14:08 Encounter info: [id number], [facility], Disch Obv, 03/16/2017 - 03/17/2017 Hospitalist [...] Up with: Please follow up with your 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 shade 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 in one wk; Faith Mesa Within 1 [...] on March 26, 2013 17:34 Encounter info: [id number], [facility] [facility], 03/19/2013 - 03/19/2013 Contributor system: NUANCE * Final Report * Polysomnogram (Verified) PRELIMINARY REPORT UNLESS MANUALLY/ELECTRONICALLY SIGNED [facility] SLEEP PROGRAM [facility] Accredited by the [employer] POLYSOMNOGRAM REPORT Referring Provider: Murtaza Silva Date of Service: 03/19/2013 Order ID: [id number] INTRODUCTION: This 42 year-old female is referred with history of JONATAN. The sleep questionnaire noted excessive sleepiness, difficulty sleeping and waking frequently at night, and heartburn at night.The height is 62 inches. The weight is 235.1 lbs. The BMI is 43.2. MEDICATIONS: synthroid, imitrex, ergo. DESCRIPTION: This overnight polysomnogram was done utilizing a [employer] polysomnograph machine. Four channels of EEG for [...] can be referred to sleep clinic at [facility]. Dictated by: Megan Lopes M.D. Signing Clinician: Megan Lopes M.D. Dictated: 03/25/2013 10:17:35 Transcribed: 03/25/2013 22:08:29 Transcribed by: LANE DocID: [id number] CC:Lupillo Gibson M.D. [facility] [address] [place], [address] Suzie Anastasia Hauser [facility] - Internal Medicine [address] [place] [address], [address] Type 2 diabetes mellitus wit hout complication, without long-term current use of insulin ([facility]) 05/17/2016 Acute reaction to situational stress [...] on 03 October 2013 13:21 Encounter info: [id number], [facility] 09/29[facility]2013 - 09/29/2013 Results Letter Patient: MARITZA [...] your stomach and duodenum. Antolin Venegas MD [facility] [address], [address] [facility], [address] Non morbid obesity due to excess calories 2015 Resolved Problems Problem Noted Date Diagnosed Date Resolved Date 2018 novel coronavirus disea se (COVID-19) 08/30/2020 09/12/2020 06/13/2021 Encounters Date Type Department Care Team Description 04/14/2025 2:00 PM EDT Office Visit [address] [address] Jessie Mesa PA-C from Last [...] Description 05/31/2025 2:40 PM EDT Telemedicine Visit [facility] [address] [place] [address] Jessie Mesa PA-C [address] [place] [address] Health Maintenance Due Date Last [...] 04/14/2025 , 11/18/2024, 04/08/2024, Additional history exists [id number] ( season) 2025 04/21/2021, 03/31/2021 Postponed from [...] 01/08/2024, 05/08/20 Alcohol and Drug Screen Completed 04/14/20 25, 11/18/2024, 01/08/2024, Additional history exists Procedures Procedure Name Priority Date/Time Associated Diagnosis Comments REFERRAL SCANNED DOCUMENT 04/30/2025 3:00 AM EDT US RENAL (KIDNEYS) BILAT Routine 04/26/2025 3:00 [...] complication, without long-term current use of insulin ([facility]) Right lumbar radiculopathy Right flank pain Mild vitamin D deficiency Lumbar disc disease ASSAY OF MAGNESIUM Routine 04/14/2025 2: 13 PM EDT Hypothyroidism (acquired) Non morbid obesity due to excess calories Type 2 diabetes mellitus without complication, without long-term current use of insulin ([facility]) Right lumbar radiculopathy Right flank pain Mild vitamin D deficiency Lumbar disc disease VITAMIN B12 & FOLATE Routine 04/14/2025 2:13 PM EDT Hypothyroidism (acquired) Non morbid obesity due to excess calories Type 2 diabetes mellitus without complication, without long-term current use of insulin ([facility]) Right lumbar radiculopathy Right flank pain Mild vitamin D deficiency Lumbar disc disease BLOOD COUNT COMPLETE AUTO&AUTO DIFRNTL WBC Routine 04/14/2025 2:13 PM EDT Hypothyroidism (acquired) Non morbid obesity due to excess calories Type 2 diabetes mellitus without complication, without long-term current use of insulin ([facility]) Right lumbar radiculopathy Right flank pain Mild vitamin D deficiency Lumbar disc disease COMPREHENSIVE METABOLIC PANEL Routine 04/14/2025 2:13 PM EDT Hypothyroidism (acquired) Non morbid obesity due to excess calories Type 2 diabetes mellitus without complication, without long-term current use of insulin ([facility]) Right lumbar radiculopathy Right flank pain Mild vitamin D deficiency Lumbar disc disease LIPID PANEL Routine 04/14/2025 2:13 PM EDT Hypothyroidism (acquired) Non morbid obesity due to excess calories Type 2 diabetes mellitus without complication, without long-term current use of insulin ([facility]) Right lumbar radiculopathy Right flank pain Mild vitamin D deficiency Lumbar disc disease TSH W/RFLX FREE T4 Routine 04/14/2025 2: 13 PM EDT Hypothyroidism (acquired) Non morbid obesity due to excess calories Type 2 diabetes mellitus without complication, without long-term current use of insulin ([facility]) Right lumbar radiculopathy Right flank pain Mild vitamin D deficiency Lumbar disc disease HEMOGLOBIN GLYCOSYLATED A1C Routine 04/14/2025 2:13 PM EDT Hypothyroidism (acquired) Non morbid obesity due to excess calories Type 2 diabetes mellitus without complication, without long-term current use of insulin ([facility]) Right lumbar radiculopathy Right flank pain Mild vitamin D deficiency Lumbar disc disease URINALYSIS, COMPLETE W/REFLEX TO CULTURE Routine 04/14/2025 2:13 PM EDT Hypothyroidism (acquired) Non morbid obesity due to excess calories Type 2 diabetes mellitus without complication, without long-term current use of insulin ([facility]) Right lumbar radiculopathy Right flank pain Mild vitamin D deficiency Lumbar disc disease MICROALBUMIN/CREATININ E RATIO, URINE, RANDOM Routine 04/14/2025 2:13 PM EDT Hypothyroidism (acquired) Non morbid obesity due to excess calories Type 2 diabetes mellitus without complication, without long-term current use of insulin ([facility]) Right lumbar radiculopathy Right flank pain Mild vitamin D deficiency Lumbar disc disease HISTORIC MAMMOGRAM 11/18/2024 3: 00 AM EDT EYE EXAM 10/28/2023 3:00 AM EST HISTORIC COLONOSCOPY 09/28/2021 3:00 AM EST ANTIBODY HIV-1&HIV-2 SINGLE RESULT Routine 07/08/2020 1:40 PM EST Type 2 diabetes mellitus without complication, without long-term current use of insulin ([facility]) Non morbid obesity due to excess calories HEPATITIS A,B,C PANEL Routine 07/08/2020 1:40 PM EST Type 2 diabetes mellitus without complication, without long-term current use of insulin ([facility]) Non morbid obesity due to excess calories from Last 3 Months or Most Recently Relevant to Health Maintenance Results * REFERRAL SCANNED DOCUMENT (04/30/2025 3:00 AM EDT) 04/30/2025 3:00 AM EDT Jessie Mesa PA-C SCAN REFERRAL Final Result * US RENAL (KIDNEYS) BILAT (04/26/2025 3:00 AM EDT) 04/26/2025 3:00 AM EDT Jessie Mesa PA-C IMG ULTRASOUND Final Result * TSH W/RFLX FREE T4 Routine (04/14/2025 2:13 PM EDT) TSH W/REFLEX TO FT4 1.07 mIU/L 04/15/2025 4:57 AM EDT [facility] Blood Blood / Unknown 04/14/2025 2 :13 PM EDT 04/15/2025 3:46 AM EDT [facility] - 04/15/2025 5:20 AM EDT FASTING:NO Reference Range . > or = 20 Years 0.40-4.50 . Ranges First trimester 0.26-2.66 Second trimester 0.55-2.73 Third trimester 0.43-2.91 us Jessie Mesa PA-C LAB - BLOOD DRAW Final Resul t Performing Organization Address City/[facility] [address]/ZIP Co de Phone Number [employer] [address] [place] [phone], [employer] [address] [phone] * URINE CULTURE W ID & SENS Routine (04/14/2025 2:13 PM EDT) Micro Number [id number] 04/15/2025 10:14 PM EDT [facility] SPECIMEN QUALITY Adequate 04/15/2025 10:14 PM EDT [facility] SOURCE: URINE 04/15/2025 10:14 PM EDT [facility] STATUS: FINAL 04/15/2025 10:14 PM EDT [facility] RESULT Less than 10,000 CFU/mL of single Gram positive organism isolated. No further testing will be performed. If clinically indicated, recollection using a method to minimize contamination, with prompt transfer to Urine Culture Transport Tube, is recommended. 04/15/2025 10:14 PM EDT [facility] 04/14/2025 2:13 PM EDT 04/14/2025 2:14 PM EDT [facility] - 04/15/2025 10:20 PM EDT FASTING:NO us Jessie Mesa PA-C LAB - MICROBIOLOGY AMBULATOR Y Final Result Performing Organization Address [place]/[facility] [address]/[facility] Co de Phone Number [facility] [address] [place] [address], [employer] [address] [phone] * (ABNORMAL) URINALYSIS, COMPLETE W/REFLEX TO CULTURE Urine Routine (04/14/2025 2:13 PM EDT) COLOR YELLOW YELLOW 04/15/2025 4:09 AM [facility] APPEARANCE CLEAR CLEAR 04/15/2025 4:09 AM [facility] SPECIFIC GRAVITY 1.017 1.001 - 1.035 04/15/2025 4:09 AM [facility] URINE PH < OR = 5.0(A) 5.0 - 8.0 04/15/2025 4:09 AM EDT [facility] GLUCOSE NEGATIVE NEGATIVE 04/15/2025 4:09 AM [facility] BILIRUBIN NEGATIVE NEGATIVE 04/15/2025 4:09 AM [facility] KETONES NEGATIVE NEGATIVE 04/15/2025 4:09 AM [facility] OCCULT BLOOD TRACE(A) NEGATIVE 04/15/2025 4:09 AM [facility] URINE PROTEIN NEGATIVE NEGATIVE 04/15/2025 4:09 AM [facility] NITRITE NEGATIVE NEGATIVE 04/15/2025 4:09 AM [facility] LEUKOCYTE ESTERASE 2+(A) NEGATIVE 04/15/2025 4:09 AM [facility] URINE LEUKOCYTES 10-20(A) 0 - 5 /HPF 04/15/2025 4:09 AM [facility] RBC NONE SEEN 0 - 2 /HPF 04/15/2025 4:09 AM [facility] SQUAMOUS EPITHELIAL CELLS 0-5 < OR = 5 /HPF 04/15/2025 4:09 AM [facility] BACTERIA NONE SEEN NONE SEEN /HPF 04/15/2025 4:09 AM [facility] HYALINE CAST NONE SEEN NONE SEEN /LPF 04/15/2025 4:09 AM [facility] SEE NOTE SEE NOTE 04/15/2025 4:09 AM [facility] Urine Urine specimen / Unknown 04/14/2025 2:13 PM EDT 04/15/2025 3:31 AM EDT Narrative [facility] - 04/15/2025 4:12 AM EDT FASTING:NO This urine was analyzed for the presence of WBC, RBC, bacteria, casts, and other formed elements. Only those elements seen were reported. . . Jessie Mesa PA-C LAB URINE AMBULATORY Final R esult Performing Organization Address [place]/[facility] [address]/ZIP Co de Phone Number [facility] [address] [address], [employer] [address] [phone] * RFLX - REFLEXIVE URINE CULTURE Routine (04/14/2025 2:13 PM EDT) REFLEXIVE URINE CULTURE SEE NOTE 04/15/2025 4:09 AM EDT [facility] 04/14/2025 2:13 PM EDT 04/15/2025 3:31 AM EDT [employer] [facility] - 04/15/2025 4:12 AM EDT FASTING:NO CULTURE INDICATED - RESULTS TO FOLLOW Jessie Mesa PA-C LAB - MICROBIOLOGY AMBULATOR Y Final Result Performing Organization Address [facility] de Phone Number [facility] [address] [address], [employer] [address] [phone] * MICROALBUMIN/CREATININE RATIO, URINE, RANDOM Urine Routine (04/14/2025 2:13 PM EDT) CREATININE, RANDOM URINE 135 20 - 275 mg/dL 04/15/2025 6:05 PM EDT [facility] MICROALBUMIN <0.2 mg/dL 04/15/2025 6:05 PM EDT [facility] MICROALBUMIN/CRE ATININE RATIO, RANDOM URINE NOTE <30 mg/g creat 04/15/2025 6:05 PM EDT [facility] Urine Urine specimen / Unknown 04/14/2025 2:13 PM EDT 04/15/2025 2:26 AM EDT [facility] - 04/15/2025 6:06 PM EDT FASTING:NO Reference [...] patient to be within a diagnostic category. Jessie Mesa PA-C LAB URINE AMBULATORY Final R esult Performing Organization Address [place]/[facility] [address]/[facility] Co de Phone Number [facility] [address] [address], [employer] [address] [phone] * VITAMIN B12 & FOLATE Routine (04/14/2025 2:13 PM EDT) Pathologist [facility] VITAMIN B12 721 200 - 1,100 pg/mL 04/15/2025 4:57 AM EDT [facility] FOLATE, SERUM 20.5 ng/mL 04/15/2025 4:57 AM EDT [facility] Blood Blood / Unknown 04/14/2025 2 :13 PM EDT 04/15/2025 3:46 AM EDT Narrative [employer] [facility] - 04/15/2025 5:20 AM EDT FASTING:NO Reference Range Low: <3.4 Borderline: 3.4-5.4 Normal: >5.4 . Jessie Mesa PA-C LAB - BLOOD DRAW Final Resul t Performing Organization Address [place]/[facility] [address]/[facility] de Phone Number [facility] [address] [address], [employer] [address] [phone] * BLOOD COUNT COMPLETE AUTO&AUTO DIFRNTL WBC Routine (04/14/2025 2:13 PM EDT) Pathologist [facility] WHITE BLOOD CELL COUNT 8.6 3.8 - 10.8 Thousand/ uL 04/15/2025 3:48 AM EDT [facility] RED BLOOD CELL COUNT 4.54 3.80 - 5.10 Million/u L 04/15/2025 3:48 AM EDT [facility] HEMOGLOBIN 13.9 11.7 - 15.5 g/dL 04/15/2025 3:48 AM EDT [facility] HEMATOCRIT 42.5 35.0 - 45.0 % 04/15/2025 3:48 AM [facility] MCV 93.6 80.0 - 100.0 fL 04/15/2025 3:48 AM [facility] MCH 30.6 27.0 - 33.0 pg 04/15/2025 3:48 AM [facility] MCHC 32.7 32.0 - 36.0 g/dL 04/15/2025 3:48 AM [facility] RDW 13.0 11.0 - 15.0 % 04/15/2025 3:48 AM [facility] PLATELET COUNT 273 140 - 400 Thousand/ uL 04/15/2025 3:48 AM [facility] MPV 9.5 7.5 - 12.5 fL 04/15/2025 3:48 AM [facility] ABSOLUTE NEUTROPHILS 4,291 1,500 - 7,800 cells/uL 04/15/2025 3:48 AM [facility] ABSOLUTE LYMPHOCYTES 3,629 850 - 3,900 cells/uL 04/15/2025 3:48 AM [facility] ABSOLUTE MONOCYTES 456 200 - 950 cells/uL 04/15/2025 3:48 AM [facility] ABSOLUTE EOSINOPHILS 198 15 - 500 cells/uL 04/15/2025 3:48 AM [facility] ABSOLUTE BASOPHILS 26 0 - 200 cells/uL 04/15/2025 3:48 AM [facility] NEUTROPHILS PCT 49.9 % 3:48 AM [facility] LYMPHOCYTES 42.2 % 04/15/2025 3:48 AM [facility] MONOCYTES 5.3 % 04/15/2025 3:48 AM [facility] EOSINOPHILS 2.3 % 04/15/2025 3:48 AM [facility] BASOPHILS 0.3 % 04/15/2025 3:48 AM [facility] Blood Blood / Unknown 04/14/2025 2 :13 PM EDT 04/15/2025 2:45 AM EDT [facility] - 04/15/2025 3:55 AM EDT FASTING:NO For adults, a slight decrease in the calculated MCHC value (in the range of 30 to 32 g/dL) is most likely not clinically significant; however, it should be interpreted with caution in correlation with other red cell parameters and the patient's clinical condition. us Jessie Mesa PA-C LAB - BLOOD DRAW Final Resul t Performing Organization Address [place]/[facility] [address]/[facility] de Phone Number [facility] [address] [place] [phone], [employer] [address] [place] [phone] * ASSAY OF MAGNESIUM Routine (04/14/2025 2:13 PM EDT) MAGNESIUM 1.9 1.5 - 2.5 mg/dL 04/15/2025 5:21 AM EDT [facility] Blood Blood / Unknown 04/14/2025 2 :13 PM EDT 04/15/2025 3:46 AM EDT [facility] - 04/15/2025 5:24 AM EDT FASTING:NO us Jessie Mesa PA-C LAB - BLOOD DRAW Final Resul t Performing Organization Address [facility] de Phone Number [facility] [address] [place] [address], [employer] [address] [place] [phone] * (ABNORMAL) HEMOGLOBIN GLYCOSYLATED A1C Routine (04/14/2025 2:13 PM EDT) HEMOGLOBIN A1C 6.8(H) <5.7 % 04/15/2025 5:58 PM EDT [facility] Blood Blood / Unknown 04/14/2025 2 :13 PM EDT 04/15/2025 2:45 AM EDT [facility] - 04/15/2025 5:59 PM EDT FASTING:NO For [...] for diagnosis of diabetes for children. . Jessie Mesa PA-C LAB - BLOOD DRAW Final Resul t Performing Organization Address [place]/[facility] [address] [facility] Co de Phone Number [facility] [address] [place] [address], [facility] [address] [phone] * 25 HYDROXY INCLUDES FRACTIONS IF PERFORMED Routine (04/14/2025 2:13 PM EDT) [facility] VITAMIN D, 25-OH, TOTAL 38 30 - 100 ng/mL 04/15/2025 8:55 AM EDT [facility] Blood Blood / Unknown 04/14/2025 2 :13 PM EDT 04/15/2025 3:46 AM EDT Narrative [facility] - 04/15/2025 9:04 AM EDT FASTING:NO Vitamin D Status 25-OH Vitamin D: . Deficiency: <20 ng/mL Insufficiency: 20 - 29 ng/mL Optimal: > or = 30 ng/mL . For 25-OH Vitamin D testing on patients on D2-supplementation and patients for whom quantitation of D2 and D3 fractions is required, the QuestAssureD() 25-OH VIT D, (D2,D3), LC/MS/MS is recommended: order code 57566 (patients >2yrs). . See Note 1 . Note 1 . For additional information, please refer to http://education.[employer].HELM Boots/faq/NTX182 (This link is being provided for informational/ educational purposes only.) us Jessie Mesa PA-C LAB - BLOOD DRAW Final Resul t Performing Organization Address [place]/[facility] [address]/[facility] Co de Phone Number [facility] [employer] [address] [place] [address], [employer] [address] [phone] * LIPID PANEL Routine (04/14/2025 2:13 PM EDT) CHOLESTEROL, TOTAL 187 <200 mg/dL 04/15/2025 5:21 AM EDT [facility] HDL CHOLESTEROL 75 > OR = 50 mg/dL 04/15/2025 5:21 AM EDT [facility] TRIGLYCERIDES 128 <150 mg/dL 04/15/2025 5:21 AM EDT [facility] LDL-CHOLESTEROL 90 mg/dL (calc) 04/15/2025 5:21 AM EDT [facility] CHOL/HDLC RATIO 2.5 <5.0 (calc) 04/15/2025 5:21 AM EDT [facility] NON-HDL CHOLESTEROL 112 <130 mg/dL (calc) 04/15/2025 5:21 AM EDT [facility] Blood Blood / Unknown 04/14/2025 2 :13 PM EDT 04/15/2025 3:46 AM EDT Narrative [facility] - 04/15/2025 5:24 AM EDT FASTING:NO Reference range: <100 . Desirable range <100 mg/dL for primary prevention; <70 mg/dL for patients with CHD or diabetic patients with > or = 2 CHD risk factors. . LDL-C is now calculated using the Luis Alberto-Spencer calculation, which is a validated novel method providing better accuracy than the Friedewald equation in the estimation of LDL-C. Luis Alberto SS et al. MARIA FERNANDA. 2013;310(19): 3563-2876 (http://education.[employer].com/faq/UEI506) For patients with diabetes plus 1 major ASCVD risk factor, treating to a non-HDL-C goal of <100 mg/dL (LDL-C of <70 mg/dL) is considered a therapeutic option. us Jessie Mesa PA-C LAB - BLOOD DRAW Final Resul t [facility] [address] [address], [facility] [address] [address] * (ABNORMAL) COMPREHENSIVE METABOLIC PANEL Routine (04/14/2025 2:13 PM EDT) [facility] GLUCOSE 157(H) 65 - 139 mg/dL 04/15/2025 5:21 AM [facility] UREA NITROGEN (BUN) 17 7 - 25 mg/dL 04/15/2025 5:21 AM [facility] CREATININE (blood) 0.86 0.50 - 1.03 mg/dL 04/15/2025 5:21 AM [facility] EGFR 80 > OR = 60 mL/min/1. 73m2 04/15/2025 5:21 AM [facility] BUN/CREATININE RATIO SEE NOTE: 6 - 22 (calc) 04/15/2025 5:21 AM [facility] SODIUM 138 135 - 146 mmol/L 04/15/2025 5:21 AM [facility] POTASSIUM 4.3 3.5 - 5.3 mmol/L 04/15/2025 5:21 AM [facility] CHLORIDE 102 98 - 110 mmol/L 04/15/2025 5:21 AM [facility] CARBON DIOXIDE 27 20 - 32 mmol/L 04/15/2025 5:21 AM [facility] CALCIUM 9.0 8.6 - 10.4 mg/dL 04/15/2025 5:21 AM [facility] PROTEIN, TOTAL 7.5 6.1 - 8.1 g/dL 04/15/2025 5:21 AM [facility] ALBUMIN 4.2 3.6 - 5.1 g/dL 04/15/2025 5:21 AM [facility] GLOBULIN 3.3 1.9 - 3.7 g/dL (calc) 04/15/2025 5:21 AM [facility] ALBUMIN/GLOBULI N RATIO 1.3 1.0 - 2.5 (calc) 04/15/2025 5:21 AM [facility] BILIRUBIN, TOTAL 0.5 0.2 - 1.2 mg/dL 04/15/2025 5:21 AM [facility] ALKALINE PHOSPHATASE 65 37 - 153 U/L 04/15/2025 5:21 AM [facility] AST 23 10 - 35 U/L 04/15/2025 5:21 AM EDT [facility] ALT 40(H) 6 - 29 U/L 04/15/2025 5:21 AM EDT [facility] Blood Blood / Unknown 04/14/2025 2 :13 PM EDT 04/15/2025 3:46 AM EDT Narrative [facility] [employer] - 04/15/2025 5:24 AM EDT FASTING:NO . Non-fasting reference interval . Not Reported: BUN and Creatinine are within reference range. . us Jessie Mesa PA-C LAB - BLOOD DRAW Final Resul t [employer] [address] [place] [phone], [facility] [employer] [address] [place] [phone] * HISTORIC MAMMOGRAM (11/18/2024 3:00 AM EDT) 11/18/2024 3:00 AM EDT Jessie Mesa PA-C IMG MAMMO Final Result * EYE EXAM (10/28/2023 3:00 AM EST) 10/28/2023 3:00 AM EST us Jessie Mesa PA-C OTHER Edited Resul t - Final * HISTORIC COLONOSCOPY (09/28/2021 3:00 AM EST) 09/28/2021 3:00 AM EST us Jessie Mesa PA-C PROCEDURES Final Result * (ABNORMAL) HEPATITIS A,B,C PANEL (07/08/2020 1:40 PM EST) HEPATITIS B SURFACE ANTIBODY NEGATIVE NEGATIVE [facility] HEPATITIS B SURFACE ANTIGEN NEGATIVE NEGATIVE [facility] Comment: Over the counter supplements containing high doses of biotin may interfere with this assay. If interference is suspected, patients shoud be retested after refraining from biotin supplements for 72 hours. HEPATITIS C VIRUS DIAGNOSTIC NEGATIVE NEGATIVE [facility] HEPATITIS A ANTIBODY TOTAL POSITIVE(A) NEGATIVE [facility] Comment: Over the counter supplements containing high doses of biotin may interfere with this assay. If interference is suspected, patients shoud be retested after refraining from biotin supplements for 72 hours. HEPATITIS B CORE ANTIBODY NEGATIVE NEGATIVE [facility] Blood Blood / Unknown 07/08/2020 1 :40 PM EST 07/08/2020 3:02 PM EST [facility] - 07/08/2020 7:07 PM EST [employer] [place] [address] Retail Operations Specialist - Danae Contreras MD PT ID [id number] ORD# [id number] Jessie Mesa PA-C LAB - BLOOD DRAW [place] [address], * HIV-1 & HIV-2 ANTIBODIES (07/08/2020 1:40 PM EST) [facility] HIV 1 AND 2 ANTIBODY SCREEN NEGATIVE NEGATIVE [facility] Comment: This assay is a 4th generation [...] PM EST 07/08/2020 3:02 PM EST [facility] - 07/08/2020 7:36 PM EST [employer] [place] [address] Retail Operations Specialist - Danae Contreras MD PT ID [id number] ORD# [id number] Jessie Mesa PA-C LAB - BLOOD DRAW Final Resul t [facility] [employer] [address] [place] [address], from Last 3 Months or Most Recently Relevant to Health Maintenance Insurance [place] [facility] [employer] Care Teams Line Controller Relationship Specialty Start Date End Date Jessie Mesa PA-C [address] [place] [id number] PCP - General Internal Medicine 12/02/15
== END 2025-05-04 10:53 | disposition home or self-care (01) ==
LOC: HO.ENCR 09:50
PROVIDERS: PCP Physician Assistant; Visit Provider Dietitian, Registered
DX: E11.9 Type 2 diabetes mellitus without complications (principal)

== ENCOUNTER → 2025-05-04 09:49 | Outpatient (BNVA) | payer MEDICAID, SELFPAY | PROVIDERS: PCP Physician Assistant; Visit Provider Dietitian, Registered | DX: E11.9 Type 2 diabetes mellitus without complications (principal) | CPT/HCPCS: 97803 ==